=== PATIENT | female | born 1950 | race Caucasian/White ===

== ENCOUNTER → 2020-09-05 11:16 | Outpatient (CLI) | payer MEDICARE, OTHER, SELFPAY ==
--- NOTE | ~2020-09-05 | XR_ITS ---
EXAMINATION:XR cervical spine 4-5V DATE: 09/05/2020 11:41 INDICATION: Neck pain TECHNIQUE: AP, lateral, lateral swimmers and odontoid views of the cervical spine are provided. COMPARISON: None FINDINGS: Alignment is normal. The odontoid is intact. No fracture is identified. The vertebral body heights are maintained. There is mild loss of intervertebral disc space height throughout the cervica l spine. There is severe multilevel facet osteoarthritis. Prevertebral soft tissues are normal. IMPRESSION: 1. Mild cervical spondylosis without acute findings. Reviewed, dictated and finalized at location B.
--- NOTE | ~2020-09-05 | CT_ITS ---
EXAMINATION: CT brain wo con DATE: 09/05/2020 11:40 INDICATION: Head injury. TECHNIQUE: Computed tomography (CT) of the head was performed without intravenous contrast. The mA wa s adjusted according to patient size. Iterative reconstruction technique was employed. The dose-lengt h product was 599.57 mGy-cm. COMPARISON: None FINDINGS: There is no intracranial hemorrhage, acute infarction, or abnormal intracranial mass lesion . The ventricles are normal in size. The orbits are normal. There is mild mucosal thickening in the e thmoid sinuses. The mastoid air cells are normal. IMPRESSION: 1. Normal brain. Reviewed, dictated and finalized at location A. IMPRESSION: 1. Normal brain.
== END ==
PROVIDERS: PCP Internal Medicine; Visit Provider Internal Medicine
DX: S09.90XA Unspecified injury of head, initial encounter (principal); M47.812 Spondylosis without myelopathy or radiculopathy, cervical region
CPT/HCPCS: 70450; 72050

== ENCOUNTER → 2020-09-22 12:28 | Outpatient (CLI) | payer MEDICARE, OTHER, SELFPAY ==
--- NOTE | ~2020-09-22 | MR_ITS ---
EXAMINATION: MR brain IAC wo/w con EXAM DATE: 09/22/2020 13:30 INDICATION: Left ear fullness after head injury, left ear hearing loss, fall. Incident was 5 weeks ag o, persistent symptoms. TECHNIQUE: Multi-sequential, multiplanar MR images of the brain, brainstem, internal auditory canals were obtained without contrast. Whole brain sagittal T1, axial diffusion, gradient echo (T2*), T1, T 2, FLAIR sequences obtained. High resolution coronal 3-D FIESTA, coronal T1 FSE, axial T1 FSPGR of t he internal auditory canals. Patient was then injected with 15 cc Multihance contrast intravenously. Postcontrast axial and coronal T1 weighted whole brain, axial and coronal high resolution T1 IAC seq uences obtained. Correlation is made to head CT 09/05/2020. FINDINGS: No evidence of mastoid or middle ear opacification. The 7th/8th cranial nerve complexes a re symmetric, normal in course and caliber. No cerebellopontine angle masses. Posterior fossa unrem arkable. There are no areas of restricted diffusion to suggest acute infarction. There is no acute hemorrhage seen on the T2*, a hemosiderin sensitive sequence. No intraparenchymal brain mass lesion. There is mild periventricular and subcortical T2/FLAIR signal hyperintensity, nonspecific but probably related to small vessel ischemic disease (microangiopathy). There are no extra-axial collections. Flow vo ids are seen in the cerebral arteries on the T2-weighted sequences consistent with their expected pat ency. The orbits are unremarkable. Soft tissue is unremarkable. There are no areas of abnormal enh ancement on the postcontrast images. IMPRESSION: 1. Unremarkable MR brain/IAC examination. Reviewed, dictated and finalized at location B.
[2020-09-22 12:51] LABS: Estimated Glomerular Filt Rate > 60
== END ==
PROVIDERS: PCP Internal Medicine; Visit Provider Internal Medicine
DX: S09.90XA Unspecified injury of head, initial encounter (principal); H93.8X2 Other specified disorders of left ear
CPT/HCPCS: 70553; A9577

== ENCOUNTER 2020-11-14 09:30 | Outpatient (CLI) | payer MEDICARE, OTHER, SELFPAY ==
--- NOTE | ~2020-11-14 | MR_ITS ---
EXAMINATION: MR shoulder RT wo con DATE: 11/14/2020 10:45 INDICATION: Right shoulder pain. TECHNIQUE: Magnetic resonance imaging (MRI) of the right shoulder was performed without intravenous c ontrast. Sequences included axial PD-weighted FS FSE, coronal oblique PD-weighted FS FSE and T2-weigh shanell FS FSE, and sagittal oblique T2-weighted FS FSE and T1-weighted FSE. COMPARISON: Right shoulder radiographs 11/12/2020 FINDINGS: Coracoacromial arch: The acromion undersurface is flat in morphology (type I). There is severe acromioclavicular joint ost eoarthritis including inferiorly directed osteophytes. There is moderate subacromial/subdeltoid bursi tis. Rotator cuff: There is moderate supraspinatus and infraspinatus tendinopathy. There is an interstitial tear of infr aspinatus tendon at the distal insertion measuring 6 mm anterior to posterior by 5 mm proximal to dis gabriel by 1/5 tendon thickness. Teres minor tendon is normal. There is severe subscapularis tendinopathy . There is no asymmetric fatty atrophy of the rotator cuff muscle bellies. There is degenerative cyst ic change in greater tuberosity. Biceps tendon and glenoid labrum: There is a complete tear of proximal biceps tendon. There is widespread tearing of the glenoid labrum . Fluid: There is a small glenohumeral joint effusion. Bones/cartilage: There is full-thickness cartilage loss of posterior glenoid with moderate subchondral edema-like earl ow signal intensity. There is deep partial thickness cartilage loss of superior humeral head. Osteoph ytes are noted. IMPRESSION: 1. Severe rotator cuff tendinopathy with small interstitial tear of infraspinatus tendon. 2. Severe glenohumeral joint chondrosis. 3. Complete tear of proximal biceps tendon. 4. Severe acromioclavicular joint osteoarthritis. 5. Small glenohumeral joint effusion. 6. Moderate subacromial/subdeltoid bursitis. Reviewed, dictated and finalized at location A. IMPRESSION: 1. Severe rotator cuff tendinopathy with small interstitial tear of infraspinat us tendon. 2. Severe glenohumeral joint chondrosis. 3. Complete tear of proximal biceps tendon. 4. Severe acromioclavicular joint osteoarthritis. 5. Small glenohumeral joint effusion. 6. Moderate subacromial/subdeltoid bursitis.
== END 2020-11-14 09:31 | disposition home or self-care (01) ==
PROVIDERS: PCP Internal Medicine; Visit Provider Physician Assistant Surgical
DX: M25.511 Pain in right shoulder (principal); M75.81 Other shoulder lesions, right shoulder; M94.8X1 Other specified disorders of cartilage, shoulder; S46.211A Strain of muscle, fascia and tendon of other parts of biceps, right arm, initial encounter; M19.011 Primary osteoarthritis, right shoulder; M25.411 Effusion, right shoulder; M75.51 Bursitis of right shoulder
CPT/HCPCS: 73221

== ENCOUNTER 2022-09-28 13:33 | Outpatient (CLI) | payer MEDICARE, SELFPAY ==
--- NOTE | ~2022-09-28 | CT_ITS ---
Noncontrast CT scan of the right shoulder CLINICAL HISTORY: Pain, preoperative planning TECHNIQUE: Axial noncontrast imaging of the right shoulder was performed. Sagittal oblique and nunez l oblique reformatted images were constructed. Dose reduction technique was used on this scan by util izing automated exposure control and iterative reconstruction technique. The dose-length product (DLP ) was 373.77 mGy-cm. Findings: No fracture or dislocation seen. There is advanced osteoarthritis of the glenohumeral joint , joint space narrowing and large inferomedial humeral head osteophyte. There is moderate to advanced AC joint degenerative change as well, with bony productive change about the joint. No significant sandeep int effusion clearly identified. No gross soft tissue abnormality seen about the right shoulder joint. Visualized musculature unremark able. No soft tissue mass or fluid collection seen. IMPRESSION: Advanced osteoarthritis of the glenohumeral joint, as detailed above. Moderate to advanced AC joint degenerative change. Reviewed, dictated and finalized at [facility].
== END 2022-09-28 13:34 | disposition home or self-care (01) ==
PROVIDERS: PCP Internal Medicine; Visit Provider Orthopaedic Surgery
DX: M25.511 Pain in right shoulder (principal); M19.011 Primary osteoarthritis, right shoulder
CPT/HCPCS: 73200

== ENCOUNTER 2022-11-03 17:07 | Emergency (ER) | payer MEDICARE, SELFPAY ==
--- NOTE | ~2022-11-03 | XR_ITS ---
EXAMINATION: XR knee LT 3V DATE: 11/03/2022 17:46 INDICATION: Anterior left knee pain post fall TECHNIQUE: Anteroposterior, 2 oblique and crosstable lateral views of the left knee were obtained COMPARISON: None. FINDINGS: Alignment is normal. No fracture. Small marginal osteophytes at the medial and patellofemoral compar tments with relatively preserved joint space and nonweightbearing imaging consistent with at least mi ld osteoarthritis. No left knee joint effusion/layering lipohemarthrosis. Soft tissues are unremarkab le. IMPRESSION: 1. At least mild medial and patellofemoral compartment osteoarthritis. No left knee joint effusion or acute osseous abnormality. Reviewed, dictated and finalized at location A.
--- NOTE | ~2022-11-03 | XR_ITS ---
XR nasal bones min 3V 11/03/2022 17:46 Indication: Nasal bruising with abrasion Procedure: 3 views of the nasal bones Comparison: No prior studies for comparison. Findings: There is an old healed nasal fracture. No acute nasal fracture is identified. No significan t nasal septal deviation. Surrounding orbits and paranasal sinuses are unremarkable. Mastoids are pne umatized. Impression: 1: No acute fracture. Reviewed, dictated and finalized at location A. Impression: 1: No acute fracture.
--- NOTE | 2022-11-03 17:16 | ED.FALL ---
HPI - Fall General Chief Complaint: Fall Stated Complaint: Fell and hurt face and knee Time Seen by Provider: 11/03/22 17:16 Source: patient Mode of arrival: ambulatory Limitations: no limitations History of Present Illness HPI Narrative: Zandra is a 72-year-old female patient presenting to the clinic today with complaints of a ground level fall. Reports she tripped over a gas hose at the gas station and hit her face on the concrete and injury her knee. She reports that her nose was bleeding after words and she was spitting up some blood. Is concerned that she may have a nasal fracture. Has an abrasion to the left knee with discomfort to the lateral anterior knee. States that her daughter is an RN and her son is a doctor and they recommend she be evaluated in the urgent care today. Related Data Home Medications Medication Instructions Recorded Confirmed ascorbate calcium (vitamin C) 500 500 mg PO DAILY 11/12/20 11/03/22 mg tablet calcium carbonate 600 mg-vitamin 1 cap PO DAILY 11/12/20 11/03/22 D3 12.5 mcg (500 unit) capsule (Calcium 600 with Vitamin D3) cyanocobalamin (vitamin B-12) 1,000 mcg PO DAILY 11/12/20 11/03/22 1,000 mcg capsule lisinopril 5 mg tablet 5 mg PO DAILY 11/12/20 11/03/22 metoprolol succinate 100 mg 100 mg PO DAILY 11/12/20 11/03/22 tablet,extended release 24 hr multivitamin 1 tablet PO DAILY 11/12/20 11/03/22 omega-3 fatty acids 1,000 mg 1,000 mg PO DAILY 11/12/20 11/03/22 capsule (Fish Oil Concentrate) rosuvastatin 40 mg tablet 40 mg PO DAILY 11/12/20 11/03/22 acetaminophen 650 mg 650 mg PO Q12H 04/23/22 11/03/22 tablet,extended release (Tylenol Arthritis Pain) ibuprofen 800 mg tablet 800 mg PO Q6H 04/23/22 11/03/22 loratadine 10 mg tablet (Claritin) 10 mg PO DAILY 04/23/22 11/03/22 Allergies Allergy/AdvReac Type Severity Reaction Status Date / Time No Known Allergies Allergy Verified 11/03/22 17:34 Review of Systems Review of Systems: Pertinent positives per HPI. Patient denies any fever, chills, rash, headache, visual changes, dizziness, cough, runny nose, sore throat, shortness of breath, chest pain, palpitations, nausea, vomiting, diarrhea, constipation, abdominal pain, or any urinary issues. [facility] Past Medical History Medical History History of cardiac disorder History of heart block (~2001) History of hypertension Surgical History Surgical History History of bilateral breast reduction surgery (~04/2011) History of (~1989) History of repair of left rotator cuff (~12/01/10) Family History Family History Sibling Family history of diabetes mellitus in first degree relative Cancer Breast cancer DVT (deep venous thrombosis) High cholesterol Mother Family history of heart disease in male family member before age 55 Arthritis Alzheimers disease Social History Social History Smoking status: Never smoker Alcohol intake: current Lack of Transportation: No Lack of Food: Never True Current Housing: I Have Housing Concerned About Future Housing: No Difficulty Paying Gas/Electric Bills: No Difficulty Paying for Meds: No Currently Unemployed: No Education: Bachelor's Degree Difficulty w/ Childcare or Family Care: No Comments At the time of my signature, I reviewed and agree with the nursing past medical, surgical, social, and family history. There is no relevant family history pertinent to the patient complaint. Exam Narrative: General: Well-developed, well nourished, in no apparent distress Head: Normocephalic, contusion with swelling and abrasion to mid forehead and abrasion to the nose with mild swelling Eyes: Pupils equally round and reactive to light bilaterally, EOM
[2022-11-03 17:20] VITALS: BP 130/80; PULSE 60; RESP 20; TEMP 37.1; O2SAT 97
--- NOTE | 2022-11-03 18:26 | PC.NURSE ---
PT REPORTS SHE HAD JUMPED OVER THE GAS HOSE AND FELL AFTER TRIPPING ON IT. NO NEUROLOGICAL DEFICITS ARE NOTED UPON DC. CHRIS, AMBULATES WITH STEADY GAIT, DENIES ANY AGARWAL, DIZZINESS, LIGHTHEADEDNESS, VISION CHANGES.
== END 2022-11-03 18:15 | disposition home or self-care (01) ==
LOC: EXPGOSH 17:19
PROVIDERS: Emergency Provider Nurse Practitioner Family; PCP Internal Medicine
DX: R04.0 Epistaxis (principal); S00.33XA Contusion of nose, initial encounter; S09.90XA Unspecified injury of head, initial encounter; S00.83XA Contusion of other part of head, initial encounter; S80.02XA Contusion of left knee, initial encounter; S80.212A Abrasion, left knee, initial encounter; W18.09XA Striking against other object with subsequent fall, initial encounter; I10 Essential (primary) hypertension
CPT/HCPCS: 70160; 73562; 99214; G0463

== ENCOUNTER 2022-11-05 14:40 | Outpatient (CLI) | payer MEDICARE, SELFPAY ==
--- NOTE | ~2022-11-05 | CT_ITS ---
EXAMINATION: CT brain wo con DATE: 11/05/2022 15:08 INDICATION: Fall, head injury. Left eye bruising. TECHNIQUE: Computed tomography (CT) of the head was performed without intravenous contrast. The mA wa s adjusted according to patient size. Iterative reconstruction technique was employed. Exam dose: 60 5.33 mGy-cm total exam DLP. COMPARISON: 09/22/2020 MRI brain IAC 09/05/2020 CT brain FINDINGS: Bilateral carotid siphon internal carotid artery calcifications and mild vertebrobasilar ar terial calcification. There is nonspecific diminished attenuation of the cerebral white matter, likely due to chronic small vessel ischemic changes. No intracranial mass lesion or hemorrhage or cerebrovascular accident is detected. No midline shift o r mass effect. Normal ventricular size. No subdural or epidural hematoma is detected. No fracture or bone destruction of the cranial vault. The mastoid air cells and included paranasal si nuses are normally developed and aerated. IMPRESSION: Cerebral atherosclerosis and chronic small vessel ischemic changes of the cerebral white matter No skull fracture or acute intracranial finding Reviewed, dictated and finalized at Location A. Reviewed, dictated and finalized at location B.
== END 2022-11-05 14:41 | disposition home or self-care (01) ==
PROVIDERS: PCP Internal Medicine; Visit Provider Internal Medicine
DX: S09.90XA Unspecified injury of head, initial encounter (principal); I67.2 Cerebral atherosclerosis
CPT/HCPCS: 70450

== ENCOUNTER 2022-12-08 07:58 | Outpatient (CLI) | payer MEDICARE, SELFPAY ==
[2022-12-08 09:33] LABS: Basophils Absolute Auto 0.1 K/mm3 (0.0-0.1); Basophils Percent Auto 1.6 % (0.2-1.2); Eosinophils Absolute Auto 0.2 K/mm3 (0-0.3); Eosinophils Percent Auto 3.4 % (0-4.4); Hematocrit 40.8 % (37.0-47.0); Hemoglobin 13.2 g/dL (12.0-15.0); Immature Platelet Fraction Pct 4.4 % (0.9-11.2); Lymphocytes Absolute Auto 1.74 K/mm3 (0.9-3.2); Lymphocytes Percent Auto 39.3 % (18.3-44.2); Mean Corpuscular HGB Conc 32.4 g/dl (32-36); Mean Corpuscular Hemoglobin 30.1 pg (26-34); Mean Corpuscular Volume 93.2 fl (80-100); Mean Platelet Volume 10.8 fl (7.4-10.4); Monocytes Absolute Auto 0.5 K/mm3 (0.1-0.6); Monocytes Percent Auto 10.2 % (2.6-8.5); Neutrophils Percent Auto 45.5 % (45.5-73.1); Platelet Count Result 135 k/mm3 (150-375); Red Blood Count 4.38 M/mm3 (4.2-5.4); Red Cell Distribution Width 13.1 % (11.5-14.5); White Blood Count 4.4 K/mm3 (4.5-10.0)
== END 2022-12-08 07:59 | disposition home or self-care (01) ==
LOC: ANHSURGERY 08:04
PROVIDERS: PCP Internal Medicine; Visit Provider Orthopaedic Surgery
DX: Z01.812 Encounter for preprocedural laboratory examination (principal); M19.011 Primary osteoarthritis, right shoulder
CPT/HCPCS: 36415; 85025; 85055; 87081

== ENCOUNTER 2023-01-04 02:17 | Day surgery (SDC) | payer MEDICARE, SELFPAY ==
--- NOTE | 2022-12-08 07:37 | PC.NURSE ---
PRE-OP INSTRUCTIONS, PLEASE READ CAREFULLY Report to the Outpatient Waiting Room, entrance under the green pavilion located off [facility], at time _0600_ on date _01/04/23_. Planned Procedure Time: _0730_. PACK A SMALL OVERNIGHT BAG AND LEAVE IN THE CAR Time changes happen often and if your time is changed the preop area will call you the afternoon before. - You and your visitor will be asked to self-screen and do not enter if you have any COVID symptoms. - A mask is optional within the hospital at this time. -VISITING HOURS 8AM-8PM Patients may have clear liquids (water, carbonated beverages, clear teas, apple juice) until 3 hours prior to surgery (0430 AM) with a maximum of 20 ounces. - No food from midnight until time of surgery Take the following medications with a SIP of water the morning of surgery: _METOPROLOL, EYE DROPS - TYLENOL IF NEEDED_ DO NOT STOP ANY OF YOUR OTHER PRESCRIPTION MEDICATIONS PRIOR TO SURGERY ?EXCEPT THE FOLLOWING Medications to discontinue per DR. AIKEN - _ASPIRIN, IBUPROFEN 7 DAYS PRIOR TO SURGERY, Date to take last dose 12/27/22_ Medications to discontinue per ANESTHESIA - _MULTIVITAMIN, FISH OIL 3 DAYS PRIOR TO SURGERY, Date to take last dose 12/31/22_ Please no make-up, nail martiniquais, hairspray, perfume, deodorant, or body powder the day of surgery. No jewelry (including any body piercings) or valuables the day of surgery, leave them at home. Please take a shower or bath the night before, or the morning of, surgery with an antibacterial soap. Wear comfortable, loose fitting clothing. - Jewelry must be removed prior to entering the operating room. Rings and piercings that are not removed may be cut off. - The hospital will not accept responsibility for valuables. - Please leave all valuables, including medications, at home the day of surgery. If you are going home after surgery, a licensed lift driver must drive you home. - NO public transportation without another adult if you receive anesthesia. - We recommend that an adult stay with you for 24 hours following discharge. - We also recommend that you do not drive, make important decision, drink alcoholic beverages, or take any drugs that were not prescribed by your health care provider for at least 24 hours after your discharge time. Follow any additional instructions given to you from your surgeon. If you or anyone in your household have experienced Covid symptoms in the past week, please notify your surgeon or the nurse liaison at the phone number below for possible testing. Instructions given to _PATIENT_and asked if any additional questions and then verbalized understanding. Patient advised to call surgeon office or pre surgery nurse liaison [phone] if any additional questions.
[2022-12-08 08:23] VITALS: BP 130/68; PULSE 62; RESP 16; TEMP 36.8; O2SAT 96; BMI 28.3
[2023-01-04] VITALS (16 sets, daily range): BP systolic 85–125; BP diastolic 49–72; PULSE 49–75; RESP 12–20; TEMP 35.6–36.9; O2SAT 91–100
[2023-01-04] MEDS: ACETAMINOPHEN 500 MG TABLET 1000 MG PO ×3 (06:29→18:08)
[2023-01-04] MEDS: LACTATED RINGERS 1,000 ML 30 ML IV CONT ×2 (06:37→09:53)
--- NOTE | 2023-01-04 06:56 | WPDHPUPDATE1 ---
History and Physical Update Update Date/Time: 01/04/23 06:56 History and Physical has been reviewed, including an updated exam of the patient. There are NO changes in the patient's condition. Risks, benefits, and alternatives have been discussed and questions answered. Patient agrees to proceed with procedure.
--- NOTE | 2023-01-04 07:00 | WPDANESEPPF ---
Anes - Initial Pre Proc Eval Procedure: Operation Date: 01/04/23 07:30 Proposed Procedures p Right Reverse Total Shoulder Arthroplasty - Albaro Plasencia MD Date/Time: 01/04/23 07:00 Surgeon: Albaro Plasencia MD Pre Op Diagnosis: primary oa r shoulder Patient Data Age: 72 Gender: F Height: 1.68 m Weight: 80.6 kg Last Vital Signs Temp 36.7 C 01/04/23 06:40 Pulse 57 L 01/04/23 06:40 Resp 16 01/04/23 06:40 BP 121/70 01/04/23 06:40 Pulse Ox 99 01/04/23 06:40 O2 Del Method Room Air 01/04/23 06:40 Allergies Allergy/AdvReac Type Severity Reaction Status Date / Time No Known Allergies Allergy Verified 01/04/23 06:21 Home Medications Medication Instructions Recorded Confirmed Type ascorbate calcium (vitamin C) 500 500 mg PO DAILY 11/12/20 01/04/23 History mg tablet calcium carbonate 600 mg-vitamin 1 cap PO DAILY 11/12/20 01/04/23 History D3 12.5 mcg (500 unit) capsule (Calcium 600 with Vitamin D3) cyanocobalamin (vitamin B-12) 1,000 mcg PO DAILY 11/12/20 01/04/23 History 1,000 mcg capsule lisinopril 5 mg tablet 5 mg PO DAILY 11/12/20 01/04/23 History metoprolol succinate 100 mg 100 mg PO DAILY 11/12/20 01/04/23 History tablet,extended release 24 hr multivitamin 1 tablet PO DAILY 11/12/20 01/04/23 History omega-3 fatty acids 1,000 mg 1,000 mg PO DAILY 11/12/20 01/04/23 History capsule (Fish Oil Concentrate) rosuvastatin 40 mg tablet 40 mg PO DAILY 11/12/20 01/04/23 History acetaminophen 650 mg 650 mg PO Q12H 04/23/22 01/04/23 History tablet,extended release (Tylenol Arthritis Pain) ibuprofen 800 mg tablet 800 mg PO Q6H PRN PAIN 04/23/22 01/04/23 History loratadine 10 mg tablet (Claritin) 10 mg PO HS 04/23/22 01/04/23 History Blue-Emu Ointment See Rx Instructions .Route .COMPLEX 12/08/22 12/08/22 History Palo Eye Drups 1 drp BID 12/08/22 12/08/22 History aspirin 81 mg tablet,delayed 81 mg PO HS 12/08/22 01/04/23 History release zolpidem 5 mg tablet 5 mg HS PRN Sleep 12/08/22 01/04/23 History Patient hx anesthesia problems: none Family hx anesthesia problems: none Results Review: All pre-operative results and documents have been reviewed as part of the pre-operative evaluation. [facility] Past Medical History Medical History (Updated 01/04/23 @ 07:01 by Pollo Schneider MD) History of cardiac disorder History of heart block (~2001) History of hypertension Normal nuclear stress test 12/31/22 Surgical History Surgical History History of bilateral breast reduction surgery (~04/2011) History of (~1989) History of repair of left rotator cuff (~12/01/10) Family History Family History Sibling Family history of diabetes mellitus in first degree relative Cancer Breast cancer DVT (deep venous thrombosis) High cholesterol Mother Family history of heart disease in male family member before age 55 Arthritis Alzheimers disease Social History Social History Smoking status: Never smoker Second hand tobacco smoke exposure: No Alcohol intake: current Drinks per week: 5 Substance use: never Substance use type: does not use Lack of Transportation: No Lack of Food: Never True Current Housing: I Have Housing Concerned About Future Housing: No Difficulty Paying Gas/Electric Bills: No Difficulty Paying for Meds: No Currently Unemployed: No Education: Bachelor's Degree Difficulty w/ Childcare or Family Care: No Living arrangements: other Additional living arrangements comments: LIVES WITH SIGNIFICANT OTHER Spiritual care concerns: No Anes - Eval Final PreProcedure Day of Procedure 01/04/23 07:00 Patient weight: overweight Heart: regular rate and rhythm Lungs: clear to auscultation Airway: Mallampati scale class II Neurological:
[2023-01-04] MEDS: TRANEXAMIC ACID 1,000MG/ISO100 1,000 MG/100 ML BAG 200 MG IVPB (07:16)
[2023-01-04] MEDS: ceFAZolin 2 GM/D5W 50 ML 2 GM/50 ML BAG IVPB ×2 (07:33→14:58)
[2023-01-04] MEDS: VANCOMYCIN HCL 1,000 MG VIAL 1000 MG TOPICAL (08:48)
--- NOTE | 2023-01-04 09:31 | W.PM.PROC2 ---
Procedure Note - Detailed Date of Procedure 01/04/23 Pre-op Diagnosis Primary osteoarthritis right shoulder Post-op Diagnosis Same Procedure Performed Reverse total shoulder arthroplasty, right. Surgeon Albaro Plasencia MD Guitar Player Janie Perez PA-C Anesthesia General Indications DJD with concern for incomplete chronic rotator cuff disease. No significant contracture. Findings Good bone quality. Standard resections. 28 degree retroversion. Posterior cuff intact. Subscapularis repaired. Description of Procedure The patient was given an interscalene block in the preoperative area. Preoperative antibiotics were given. The patient was transferred to the operating room and a general anesthetic was administered. The beach chair position was used at 45 degrees. All bony prominences were padded. The head was carefully stabilized on the [facility] department head. A sterile prep and drape was performed in the usual manner with ChloraPrep. A longitudinal incision was created at the anterior shoulder just lateral to the deltopectoral interval. Hydrogen peroxide was placed on the incision and then rinsed after one minute. Careful dissection was performed to expose the interval and protect the cephalic vein. The vein was retracted medially. The upper border of the pectoralis was released. Anterior circumflex vessel branches were suture ligated. The biceps was scarred in the groove. A subscapularis tenotomy was performed. The inferior capsule was released, exposing the humeral head. Osteophytes were removed. Care was taken to stay on bone to protect the axillary nerve. The anatomic head cut was taken with the oscillating saw. The guide pin was placed, central drilling performed, and the broach trial inserted. The neck anteversion and inclination were carefully assessed. The cut protector was placed, and attention was turned to the glenoid. Retractors were placed. Releases were carried out for exposure. The subscapularis was mobilized, the inferior capsule and long head of triceps released, and the superior and middle glenohumeral ligaments released as well. Labral tissue was resected as needed. The sizing template was used to assess the baseplate position low on the glenoid. A guide pin was placed. Minimal reaming was used to accomplish a flat surface without violating the subchondral bone. Version was corrected according to preoperative templating. The boss was drilled, and the real component was impacted into position. Supplemental locking screws were placed centrally, superiorly, and inferiorly. The glenosphere was impacted into the taper. The proximal humerus was reamed for the inset component. The humeral components were trialed. The real humeral stem, tray, and insert were impacted into position. The shoulder was copiously irrigated periodically with pulsatile lavage. The shoulder was reduced and stability confirmed. 1 gram of Vancomycin powder was placed in the joint. The biceps tenodesis was incorporated with the pectoralis tendon repair. The deltopectoral space was reapproximated with number 1 Vicryl. The remaining tissue was closed with 0 Quill and 2-0 Quill running suture and steri-strips. A sterile silver occlusive dressing and shoulder immobilizer were placed. The patient was transferred to the recovery room. Physician funeral director's assistant, Janie Perez PA-C, required for surgery; including patient positioning, draping, tissue retraction, maintaining instrument position, wound closure, and dressing placement. Implants Shoulder Innovations reverse TSA size 0 stem. +0 polyethylene insert. Standard baseplate. 33 +3 mm glenosphere. Estimated Blood Loss 100 Drains No Pathology None sent Complications No immediate complications Condition Stable Disposition PACU [facility] Billing Surgery - Charge Forward: Surgery Billing
[2023-01-04] MEDS: HYDROmorphone HCL INJ (*CRX) 1 MG/ML SYR 0.25 MG IV PUSH ×7 (10:08→10:51)
--- NOTE | 2023-01-04 11:15 | ADMGEN ---
This patient, Zandra Ma, was admitted to [facility] Surg Room 313-01. Patient/family oriented to hospital policies and general routines including ID bracelet, bed and alarms, visiting hours, pain management, procedures, bathroom and other care routines, personal items, smoking policy, room service/diet, and visiting hours. Information on how to activate the Rapid Response Team has been discussed. Patient/Family are encouraged to report perceived risks to care and to ask questions if they do not understand what they are told or what they should do.
[2023-01-04] MEDS: SODIUM CHLORIDE 0.9% IV 1,000 ML 125 ML IV CONT (11:30)
[2023-01-04] MEDS: oxyCODONE HCL (*CRX) 5 MG TAB IR 10 MG PO (15:12)
[2023-01-04] MEDS: CYCLOBENZAPRINE HCL 10 MG TABLET PO (15:14)
[2023-01-04] MEDS: ASPIRIN 81 MG ENTERIC TABLET PO (18:08)
[2023-01-04] MEDS: SENNA/DOCUSATE SODIUM TABLET 2 TAB PO (18:08)
[2023-01-04] MEDS: FAMOTIDINE 20 MG TABLET PO (20:47)
[2023-01-05] MEDS: ceFAZolin 2 GM/D5W 50 ML 2 GM/50 ML BAG IVPB ×2 (00:04→06:47)
[2023-01-05 00:05] VITALS: BP 105/60; PULSE 57; RESP 12; TEMP 36.6; O2SAT 98
[2023-01-05] MEDS: ACETAMINOPHEN 500 MG TABLET 1000 MG PO ×3 (00:05→12:06)
[2023-01-05 04:00] VITALS: BP 117/55; PULSE 57; RESP 14; TEMP 36.6; O2SAT 97
[2023-01-05] MEDS: oxyCODONE HCL (*CRX) 5 MG TAB IR PO ×2 (04:41→08:41)
[2023-01-05 07:56] LABS: Anion Gap 1 mmol/L (8-16); Blood Urea Nitrogen 13 mg/dL (7-17); Calcium 8.4 mg/dL (8.4-10.2); Carbon Dioxide 28 mmol/L (22-30); Chloride 107 mmol/L (98-107); Estimated CRCL calculation 69 ml/min; Estimated Glomerular Filt Rate > 60; Glucose 128 mg/dL (65-110); Potassium 4.8 mmol/L (3.4-5.0); Sodium 136 mmol/L (137-145)
[2023-01-05 07:59] LABS: Basophils Percent Auto 0.3 % (0.2-1.2); Eosinophils Percent Auto 0.2 % (0-4.4); Hematocrit 36.9 % (37.0-47.0); Hemoglobin 11.8 g/dL (12.0-15.0); Immature Granulocyte Absolute 0.03 K/mm3 (0.00-0.031); Immature Granulocyte Percent A 0.3 % (0-0.5); Mean Corpuscular Hemoglobin 30.8 pg (26-34); Mean Corpuscular Volume 96.3 fl (80-100); Mean Platelet Volume 10.9 fl (7.4-10.4); Monocytes Absolute Auto 0.8 K/mm3 (0.1-0.6); Monocytes Percent Auto 9.1 % (2.6-8.5); Neutrophils Absolute Auto 6.5 K/mm3 (1.3-6.7); Neutrophils Percent Auto 75.1 % (45.5-73.1); Platelet Count Result 128 k/mm3 (150-375); Red Blood Count 3.83 M/mm3 (4.2-5.4); Red Cell Distribution Width 13.4 % (11.5-14.5); White Blood Count 8.7 K/mm3 (4.5-10.0)
[2023-01-05] MEDS: ROSUVASTATIN 10 MG TABLET 40 MG PO (08:34)
[2023-01-05] MEDS: FAMOTIDINE 20 MG TABLET PO (08:35)
[2023-01-05] MEDS: SENNA/DOCUSATE SODIUM TABLET 2 TAB PO (08:35)
[2023-01-05] MEDS: polyethylene glycoL 3350 17 GM POWD.PACK PO (08:35)
[2023-01-05] MEDS: ASPIRIN 81 MG ENTERIC TABLET PO (08:35)
[2023-01-05 08:47] VITALS: PULSE 53
[2023-01-05] MEDS: METOPROLOL SUCCINATE EXT REL 100 MG TABCR PO (08:47)
[2023-01-05 08:49] VITALS: BP 112/59; PULSE 55; RESP 18; TEMP 36.7; O2SAT 96
--- NOTE | 2023-01-05 10:35 | WPDANESPN ---
Anes - Prog Note Post-Op Date/Time: 01/05/23 10:35 Cardiovascular status: normal Respiratory status: normal Airway patency: baseline Mental status: baseline Post-Op hydration status: normal Vital Signs: Last Vital Signs Temp 36.7 C 01/05/23 08:49 Pulse 55 L 01/05/23 08:49 Resp 18 01/05/23 08:49 BP 112/59 L 01/05/23 08:49 Pulse Ox 96 01/05/23 08:49 O2 Del Method Room Air 01/05/23 08:00 O2 Flow Rate 10 01/04/23 10:30 Pain Score (VAS): 06/18 I/O: Intake & Output 01/04/23 01/05/23 01/05/23 23:59 07:59 15:59 Intake Total 240 550 500 Balance 240 550 500 Laboratory Tests 01/05/23 07:33 01/05/23 07:33 01/05/23 07:33 WBC 8.7 RBC 3.83 L Hgb 11.8 L Hct 36.9 L MCV 96.3 MCH 30.8 MCHC 32.0 RDW 13.4 Plt Count 128 L MPV 10.9 H Immature Gran % (Auto) 0.3 Neut % (Auto) 75.1 H Lymph % (Auto) 15.0 L [place] % (Auto) 9.1 H Eos % (Auto) 0.2 Baso % (Auto) 0.3 Lymph # (Auto) 1.30 [place] # (Auto) 0.8 H Eos # (Auto) 0.0 Baso # (Auto) 0.0 Abs Immat Gran (auto) 0.03 Absolute Neuts (auto) 6.5 Absolute Nucleated RBC 0.0 Nucleated RBC % 0.0 Sodium 136 L Potassium 4.8 Chloride 107 Carbon Dioxide 28 Anion Gap 1 L BUN 13 Creatinine 0.70 Estim Creat Clear Calc 69 Estimated GFR > 60 Glucose 128 H Calcium 8.4 Post-procedural complaints: none Patient Feedback: Patient satisfied with anesthetic care.
--- NOTE | 2023-01-05 11:01 | PM.DS ---
DS: Admitting Diagnosis Discharge Date 01/05/23 Admitting Diagnosis Glenohumeral joint arthritis. DS: Discharge Diagnosis Discharge Diagnosis (1) Status post reverse total arthroplasty of right shoulder: Code(s): Z96.611 - Presence of right artificial shoulder joint Status: Acute Plan Postop day 1: Right reverse total shoulder arthroplasty. Patient tolerated procedure well. No complications. Pain manageable with pain medication. No numbness or tingling. We had a lengthy discussion regarding postoperative wound care, limitations, expectations, and exercises. Patient shows good understanding. She has had initial physical therapy and is tolerating it well. DVT prophylaxis: 81 mg baby aspirin b.i.d. for 14 days. Pain medication: Percocet. Patient has followup appointment with Dr. Plasencia in 3 weeks. DS: Summary Hospital Course Hospital Course: Has had initial PT/OT and is tolerating it well. Status at Discharge Functional status at discharge: independent ambulation Overall status at discharge: patient is progressing back to baseline Time Spent with Patient Time attestation: Total time spent providing and/or coordinating discharge services: Exam Narrative: Normal weight Female. Resting comfortably in be. PT working with her at the time of my visit. Wearing sling. Dressing dry and intact with no drainage. Moderate swelling. Moderate ecchymosis. No erythema. No hematoma. Range of motion limited due to pain. Calf nontender. Neurologic status intact. No varicosities. Distal pulses palpable. DS: Data Data Completed and Pending Labs on day of discharge: Labs from last 24 hours 01/05/23 07:33 WBC 8.7 RBC 3.83 L Hgb 11.8 L Hct 36.9 L MCV 96.3 MCH 30.8 MCHC 32.0 RDW 13.4 Plt Count 128 L MPV 10.9 H Immature Gran % (Auto) 0.3 Neut % (Auto) 75.1 H Lymph % (Auto) 15.0 L [place] % (Auto) 9.1 H Eos % (Auto) 0.2 Baso % (Auto) 0.3 Lymph # (Auto) 1.30 [place] # (Auto) 0.8 H Eos # (Auto) 0.0 Baso # (Auto) 0.0 Abs Immat Gran (auto) 0.03 Absolute Neuts (auto) 6.5 Absolute Nucleated RBC 0.0 Nucleated RBC % 0.0 Sodium 136 L Potassium 4.8 Chloride 107 Carbon Dioxide 28 Anion Gap 1 L BUN 13 Creatinine 0.70 Estim Creat Clear Calc 69 Estimated GFR > 60 Glucose 128 H Calcium 8.4 Discharge Plan Discharge Patient Disposition: Home, Self-Care Discharge Instructions: See green instruction sheets Stand Alone Forms: General Discharge Instructions Follow-up/Referrals: Janie Perez PA [Physician Bridge Worker] - Discharge Medications: New aspirin 81 mg tablet,delayed release (DR/EC) 81 mg PO BID 14 Days Qty: 28 0RF oxycodone-acetaminophen 5-325 mg tablet 1 - 2 tablet PO Q4-6H MDD 6 PRN (Reason: pain) Qty: 30 0RF Continued rosuvastatin 40 mg tablet 40 mg PO DAILY lisinopril 5 mg tablet 5 mg PO DAILY metoprolol succinate 100 mg tablet extended release 24 hr 100 mg PO DAILY omega-3 fatty acids [Fish Oil Concentrate] 1,000 mg capsule 1,000 mg PO DAILY ascorbate calcium (vitamin C) 500 mg tablet 500 mg PO DAILY calcium carbonate-vitamin D3 [Calcium 600 with Vitamin D3] 600 mg(1,500mg) -500 unit capsule 1 cap PO DAILY multivitamin Tablet 1 tablet PO DAILY cyanocobalamin (vitamin B-12) 1,000 mcg capsule 1,000 mcg PO DAILY loratadine [Claritin] 10 mg tablet 10 mg PO HS ibuprofen 800 mg tablet 800 mg PO Q6H PRN (Reason: PAIN) acetaminophen [Tylenol Arthritis Pain] 650 mg tablet extended release 650 mg PO Q12H aspirin 81 mg Tablet,Delayed Release (Dr/Ec) 81 mg PO HS zolpidem 5 mg tablet 5 mg HS PRN (Reason: Sleep) [facility] 1 drp EACH EYE BID Rx Instructions: EACH EYE
== END 2023-01-05 12:40 | disposition home or self-care (01) ==
LOC: ANHSURGERY 10:02 → ANH3MEDSUR 11:09
PROVIDERS: Physician Assistant Surgical; PCP Internal Medicine; Visit Provider Orthopaedic Surgery
PROC: (CPT 23472; principal; 2023-01-04 07:30)
DX: M19.011 Primary osteoarthritis, right shoulder (principal); I10 Essential (primary) hypertension; Z79.82 Long term (current) use of aspirin
CPT/HCPCS: 23472; 36415; 80048; 85025; 86850; 86900; 86901; 97110; 97161; 97165; 97530; 97535; A4565; A9270; C1776; J0171; J0690; J1100; J1170; J1885; J2250; J2270; J2371; J2405; J2704; J2795; J3010; J3370; J7030; J7120

== ENCOUNTER 2023-04-29 10:37 | Outpatient (CLI) | payer MEDICARE, SELFPAY ==
--- NOTE | ~2023-04-29 | XR_ITS ---
XR shoulder RT min 2V DATE: 04/29/2023 11:07 INDICATION: Right artificial shoulder joint TECHNIQUE: 4 views COMPARISON: 02/23/2023 right shoulder FINDINGS: Again noted is reverse glcq-qkm-[id number] right glenohumeral joint arthroplasty. No fracture, dislocation, periosteal reaction or bone destruction is detected. There is moderate degenerative change at the right acromioclavicular joint. Diffuse idiopathic skeletal hyperostosis of the thoracic spine. IMPRESSION: Right glenohumeral arthroplasty Degenerative change of the right acromioclavicular joint No significant change since 02/23/2023 Reviewed, dictated and finalized at location B. BREEDER
== END 2023-04-29 10:38 | disposition home or self-care (01) ==
PROVIDERS: PCP Internal Medicine; Visit Provider Physician Assistant Surgical
DX: Z96.611 Presence of right artificial shoulder joint (principal)
CPT/HCPCS: 73030

== ENCOUNTER 2023-10-07 11:10 | Outpatient (CLI) | payer MEDICARE, SELFPAY ==
--- NOTE | ~2023-10-07 | XR_ITS ---
Left Shoulder Technique: AP and scapular Y views were obtained. Clinical History: Pain COMPARISON: 09/11/2014 Findings: No fracture or dislocation is seen. Moderate degenerative change of the glenohumeral joint present. Mild AC joint degenerative change present. Suture anchor present at the humeral head. Soft t issues are unremarkable. Impression: No acute abnormality. Degenerative changes, as detailed above. Reviewed, dictated and finalized at location . Impression: No acute abnormality. Degenerative changes, as detailed above.
== END 2023-10-07 11:11 | disposition home or self-care (01) ==
PROVIDERS: PCP Internal Medicine; Visit Provider Internal Medicine
DX: M25.512 Pain in left shoulder (principal)
CPT/HCPCS: 73030

== ENCOUNTER 2023-10-25 06:39 | Outpatient (CLI) | payer MEDICARE, SELFPAY ==
--- NOTE | ~2023-10-25 | MR_ITS ---
MRI of the left shoulder Technique: Axial proton-density fat-sat images, coronal proton density fat-sat and T2 fat-sat images, and sagittal T1-weighted and T2 fat-sat images were acquired. Clinical History: Injury Findings: There is mild AC joint degenerative change, with bony productive change of the distal clavi dank. Coracoclavicular, coracoacromial, and coracohumeral ligaments are intact. Evidence of prior rotator cuff repair surgery. Supraspinatus and infraspinatus tendons are intact, wi thout evidence of partial or full-thickness tear. There is mild tendinosis and/or postoperative signa l change. Subscapularis intact, with moderate tendinosis. Tendon of long head of the biceps is intact with probable intra-articular tendinosis. There is probable tear or postsurgical debridement of the superior labrum. There is a large inferomedial humeral head osteophyte, with extensive high-grade chondromalacia of th e glenoid. Inferior glenohumeral ligament is intact. There is a small glenohumeral joint effusion. No fluid distention of the subacromial/subdeltoid bursa. No muscle atrophy or edema. There is fluid dis tention of the bicipital groove. Impression: Prior rotator cuff repair surgery. Diffuse rotator cuff tendinosis without evidence of partial or ful l-thickness tear. Tear versus post surgical debridement of the superior labrum. Advanced glenohumeral joint osteoarthritis, as detailed above. Possible focal tenosynovitis of the biceps tendon sheath at the bicipital groove. Reviewed, dictated and finalized at [facility]. Impression: Prior rotator cuff repair surgery. Diffuse rotator cuff tendinosis without evid ence of partial or full-thickness tear. Tear versus post surgical debridement of the superior labrum. Advanced glenohumeral joint osteoarthritis, as detailed above. Possible focal tenosynovitis of the biceps tendon sheath at the bicipital groov e.
== END 2023-10-25 06:40 | disposition home or self-care (01) ==
PROVIDERS: PCP Internal Medicine; Visit Provider Internal Medicine
DX: M19.012 Primary osteoarthritis, left shoulder (principal); M75.32 Calcific tendinitis of left shoulder; Z98.890 Other specified postprocedural states
CPT/HCPCS: 73221

== ENCOUNTER 2023-12-30 12:02 | Outpatient (CLI) | payer MEDICARE, SELFPAY ==
--- NOTE | ~2023-12-30 | XR_ITS ---
XR shoulder RT min 2V Ordering provider: Albaro Plasencia MD History: . 1 YEAR FOLLOW YP FOR SHOULDER REPLACEMENT . Comparison: April 29, 2023 FINDINGS: BONES: No acute fracture or dislocation. JOINT SPACES: Right shoulder total arthroplasty. SOFT TISSUES: Normal. IMPRESSION: No acute osseous abnormality right shoulder. Right shoulder total arthroplasty. Reviewed, dictated and finalized at location A.
== END 2023-12-30 12:03 | disposition home or self-care (01) ==
LOC: ANHIMG 12:07
PROVIDERS: PCP Internal Medicine; Visit Provider Orthopaedic Surgery
DX: Z96.611 Presence of right artificial shoulder joint (principal)
CPT/HCPCS: 73030

== ENCOUNTER 2024-04-13 11:46 | Outpatient (CLI) | payer MEDICARE, SELFPAY ==
[2024-04-13 14:00] LABS: Basophils Absolute Auto 0.1 K/mm3 (0.0-0.1); Basophils Percent Auto 1.1 % (0.2-1.2); Eosinophils Absolute Auto 0.2 K/mm3 (0-0.3); Eosinophils Percent Auto 2.9 % (0-4.4); Hematocrit 41.7 % (37.0-47.0); Hemoglobin 13.7 g/dL (12.0-15.0); Immature Granulocyte Absolute 0.02 K/mm3 (0.00-0.031); Immature Granulocyte Percent A 0.3 % (0-0.5); Lymphocytes Absolute Auto 2.02 K/mm3 (0.9-3.2); Lymphocytes Percent Auto 32.8 % (18.3-44.2); Mean Corpuscular HGB Conc 32.9 g/dl (32-36); Mean Corpuscular Hemoglobin 30.5 pg (26-34); Mean Corpuscular Volume 92.9 fl (80-100); Mean Platelet Volume 10.3 fl (7.4-10.4); Monocytes Absolute Auto 0.5 K/mm3 (0.1-0.6); Monocytes Percent Auto 8.6 % (2.6-8.5); Neutrophils Absolute Auto 3.3 K/mm3 (1.3-6.7); Neutrophils Percent Auto 54.3 % (45.5-73.1); Platelet Count Result 203 k/mm3 (150-375); Red Blood Count 4.49 M/mm3 (4.2-5.4); Red Cell Distribution Width 12.5 % (11.5-14.5); White Blood Count 6.2 K/mm3 (4.5-10.0)
[2024-04-13 15:14] LABS: MRSA (PCR) NOT DETECTED (NOT DETECTE)
== END 2024-04-13 11:47 | disposition home or self-care (01) ==
LOC: ANHSURGERY 11:52
PROVIDERS: PCP Internal Medicine; Visit Provider Orthopaedic Surgery
DX: Z01.818 Encounter for other preprocedural examination (principal); M12.812 Other specific arthropathies, not elsewhere classified, left shoulder
CPT/HCPCS: 36415; 85025; 87641

== ENCOUNTER 2024-04-24 10:03 | Outpatient (CLI) | payer MEDICARE, SELFPAY ==
--- NOTE | 2024-04-24 10:12 | ECG_ITS ---
Test Date: 2024-04-24 10:23:31 Measurements Intervals [place] Rate: 67 P: 14 MT: 179 QRS: -25 QRSD: 92 T: 3 QT: 378 QTc: 402 Interpretive Statements SINUS RHYTHM LOW QRS VOLTAGE IN PRECORDIAL LEADS [QRS DEFLECTION < 1.0 mV IN CHEST LEADS] MODERATE VOLTAGE CRITERIA FOR LVH, CONSIDER NORMAL VARIANT [MEETS CRITERIA IN ONE OF: R(aVL), S(V1), R(V5), R(V5/V6)+S(V1)] POSSIBLE ANTERIOR MYOCARDIAL INFARCTION [30 ms Q WAVE IN V3/V4, OR R < 0.2 mV IN V4], PROBABLY OLD No previous ECG available for comparison Electronically Signed On 04-24-2024 15:25:24 FLIGHT TEST MECHANIC by Kavon Fitzpatrick M.D.
== END 2024-04-24 10:04 | disposition home or self-care (01) ==
PROVIDERS: PCP Internal Medicine; Visit Provider Orthopaedic Surgery
DX: R94.31 Abnormal electrocardiogram [ECG] [EKG] (principal); I10 Essential (primary) hypertension
CPT/HCPCS: 93005

== ENCOUNTER 2024-05-01 00:07 | Day surgery (SDC) | payer MEDICARE, SELFPAY ==
[2024-04-13 12:10] VITALS: BP 142/77; PULSE 61; RESP 16; TEMP 36.8; O2SAT 96; BMI 29.1
--- NOTE | 2024-04-13 12:37 | PC.NURSE ---
Report to the Outpatient Waiting Room, entrance under the green pavilion located off [facility], at time ___6:00AM____ on date ___05/01/24____. Planned Procedure Time: ___7:30AM .? Time changes happen often and if your time is changed the preop area will call you the afternoon before. - You and your visitor will be asked to self-screen and do not enter if you have any COVID symptoms. Please call surgeon if you need to reschedule. - A mask is optional within the hospital at this time. Patients may have clear liquids (water, carbonated beverages, clear teas, apple juice) until 3 hours prior to surgery(4:30AM) with a maximum of 20 ounces. - No food from midnight until time of surgery and no smoking. This includes no chewing gum, candy or mints. Take only the following medications with a SIP of water on the morning of surgery: METOPROLOL DO NOT STOP ANY OF YOUR OTHER PRESCRIPTION MEDICATIONS PRIOR TO SURGERY EXCEPT THE FOLLOWING Medications to discontinue per physician ____HOLD ALL ASPIRIN, IBUPROFEN(NSAIDS) AND VITAMINS/SUPPLEMENTS 7 DAYS PRE-OP PER DR AIKEN Date to take last dose 04/23/24 Please no make-up, nail maori, hairspray, perfume, deodorant, or body powder the day of surgery.? No jewelry (including any body piercings) or valuables the day of surgery, leave them at home.? Please take a shower or bath the night before, or the morning of, surgery with an antibacterial soap.? Wear comfortable, loose fitting clothing.? Children are encouraged to wear pajamas. - Jewelry must be removed prior to entering the operating room.? Rings and piercings that are not removed may be cut off. - The hospital will not accept responsibility for valuables.? - Please leave all valuables, including medications, at home the day of surgery. If you are going home after surgery, a licensed septic pump truck driver must drive you home.? - NO public transportation without another adult if you receive anesthesia. - We recommend that an adult stay with you for 24 hours following discharge. - We also recommend that you do not drive, make important decision, drink alcoholic beverages, or take any drugs that were not prescribed by your health care provider for at least 24 hours after your discharge time. Follow any additional instructions given to you from your surgeon. Telephone instructions given to ___PATIENT and asked if any additional questions and then verbalized understanding. Patient advised to call surgeon office or pre surgery nurse liaison [phone] if any additional questions.
[2024-05-01] VITALS (11 sets, daily range): BP systolic 128–142; BP diastolic 67–78; PULSE 61–80; RESP 12–18; TEMP 36.1–37.1; O2SAT 95–100
--- NOTE | ~2024-05-01 | XR_ITS ---
EXAMINATION: XR shoulder LT min 2V DATE: 05/01/2024 10:46 INDICATION: Total left shoulder arthroplasty. Postop. TECHNIQUE: 2 views of left shoulder were obtained. COMPARISON: Left shoulder radiograph 10/07/2023 FINDINGS: There is a reverse jofw-wii-ujoqob total left shoulder arthroplasty in near-anatomic alignm ent. No fracture. There is mild acromioclavicular joint osteoarthritis. There is gas in the soft tiss ues, consistent with recent surgery. IMPRESSION: 1. Reverse fzeg-llo-rixedy total left shoulder arthroplasty in near-anatomic alignment. Reviewed, dictated and finalized at location B. ENERGY INSPECTOR IMPRESSION: 1. Reverse uekz-gnn-vmwqhq total left shoulder arthroplasty in near-anatomic al ignment.
[2024-05-01] MEDS: ACETAMINOPHEN 500 MG TABLET 1000 MG PO (06:20)
[2024-05-01] MEDS: LACTATED RINGERS 1,000 ML 30 ML IV CONT ×2 (06:25→10:23)
[2024-05-01] MEDS: TRANEXAMIC ACID 1,000MG/ISO100 1,000 MG/100 ML BAG 200 MG IVPB (06:25)
--- NOTE | 2024-05-01 07:20 | WPDHPUPDATE1 ---
History and Physical Update Update Date/Time: 05/01/24 07:20 History and Physical has been reviewed, including an updated exam of the patient. There are NO changes in the patient's condition. Risks, benefits, and alternatives have been discussed and questions answered. Patient agrees to proceed with procedure.
--- NOTE | 2024-05-01 07:26 | WPDANESEPPF ---
Anes - Initial Pre Proc Eval Procedure: Operation Date: 05/01/24 07:30 Proposed Procedures p Left Reverse Total Shoulder Arthroplasty - Albaro Plasencia MD Date/Time: 05/01/24 07:26 Surgeon: Albaro Plasencia MD Pre Op Diagnosis: left shoulder rotator cuff arthropathy Patient Data Age: 74 Gender: F Height: 1.67 m Weight: 79.5 kg Last Vital Signs Temp 97.3 F L 05/01/24 06:04 Pulse 65 05/01/24 06:04 Resp 18 05/01/24 06:04 BP 129/69 05/01/24 06:04 Pulse Ox 100 05/01/24 06:04 O2 Del Method Room Air 05/01/24 06:04 Allergies Allergy/AdvReac Type Severity Reaction Status Date / Time No Known Allergies Allergy Verified 05/01/24 06:38 Home Medications ?Medication ?Instructions ?Recorded ?Confirmed ?Type ascorbate calcium (vitamin C) 500 500 mg PO DAILY 11/12/20 05/01/24 History mg tablet calcium 600 mg (as 1 cap PO BID 11/12/20 05/01/24 History carbonate)-vitamin D3 12.5 mcg (500 unit) capsule (Calcium with Vit D3) cyanocobalamin (vitamin B-12) 1,000 mcg PO DAILY 11/12/20 05/01/24 History 1,000 mcg capsule lisinopril 5 mg tablet 5 mg PO DAILY 11/12/20 05/01/24 History metoprolol succinate 100 mg 100 mg PO DAILY 11/12/20 05/01/24 History tablet,extended release 24 hr multivitamin 1 tablet PO DAILY 11/12/20 05/01/24 History omega-3 fatty acids 1,000 mg 1,000 mg PO BID 11/12/20 05/01/24 History capsule (Fish Oil Concentrate) rosuvastatin 40 mg tablet 40 mg PO DAILY 11/12/20 05/01/24 History acetaminophen 650 mg 650 mg PO Q12H PRN pain 04/23/22 04/13/24 History tablet,extended release (Tylenol Arthritis Pain) loratadine 10 mg tablet (Claritin) 10 mg PO HS 04/23/22 05/01/24 History aspirin 81 mg tablet,delayed 81 mg PO HS 12/08/22 05/01/24 History release zolpidem 5 mg tablet 5 mg PO HS PRN Sleep 12/08/22 05/01/24 History ezetimibe 10 mg tablet 10 mg PO DAILY 04/13/24 05/01/24 History glycerin 1 drp ophthalmic (eye) BID 04/13/24 05/01/24 History ibuprofen 200 mg capsule 400 mg PO Q6H PRN pain 04/13/24 05/01/24 History vit C,Y-Bh-jfqnua-lutein-zeaxan 60 1 cap PO DAILY 04/13/24 05/01/24 History mg-13.5 mg-15 mg-2 mg-6 mg capsule (Healthy Eyes Lutein-Zeaxanthin) Laboratory Tests 05/01/24 06:13 Blood Type A Positive Antibody Screen Pending Patient hx anesthesia problems: none Family hx anesthesia problems: none Results Review: All pre-operative results and documents have been reviewed as part of the pre-operative evaluation. [facility] Past Medical History Medical History Normal nuclear stress test 12/31/22 History of heart block (~2001) History of cardiac disorder History of hypertension Surgical History Surgical History History of reverse total replacement of right shoulder joint (~01/04/23) History of (~1989) History of bilateral breast reduction surgery (~04/2011) History of repair of left rotator cuff (~12/01/10) Family History Family History Sibling Family history of diabetes mellitus in first degree relative Cancer Breast cancer DVT (deep venous thrombosis) High cholesterol Mother Family history of heart disease in male family member before age 55 Arthritis Alzheimers disease Social History Social History Smoking status: Never smoker Second hand tobacco smoke exposure: No Alcohol intake: current Drinks per week: 5 Substance use: never Substance use type: does not use Do You Feel Safe in your Home?: Yes Lack of Transportation: No Lack of Food: Never True Current Housing: I Have Housing Concerned About Future Housing: No Difficulty Paying Gas/Electric Bills: No Difficulty Paying for Meds: No Currently Unemployed: No Education: Bachelor's Degree Difficulty w/ Childcare or Family Care: No Living arrangements: other Additional living arrangements comments: LIVES WITH SIGNIFICANT OTHER Spiritual care concerns: No Anes - Eval Final PreProcedure Day of Procedure 05/01/24 07:26 Patient weight: normal Heart: regular rate and rhythm Lungs: clear to auscultation Airway: Mallampati scale class II Neurological: alert and oriented Last oral intake: >/= 8 hours ASA classification: III Emergent: no Anesthetic plan: proceed Anesthesia type and monitoring: general ETT and standard monitoring Results Review: All pre-operative results and documents have been reviewed as part of the pre-operative evaluation. Informed Consent: The patient's anesthetic plan and its attendant risks and benefits were discussed with the patient/family/POA. Questions were solicited and answers provided to the satisfaction of the patient/family/POA.
[2024-05-01] MEDS: ceFAZolin 2 GM/D5W 50 ML 2 GM/50 ML BAG IVPB ×3 (07:30→23:23)
[2024-05-01] MEDS: SODIUM CHLORIDE 0.9% IV 37.7 ML, MORPHINE SULFATE INJ (*CRX) 2 MG, ROPivacaine HCL 1% 2... INFILTRATE (08:22)
[2024-05-01] MEDS: VANCOMYCIN HCL 1,000 MG VIAL 1000 MG TOPICAL (08:23)
--- NOTE | 2024-05-01 11:05 | P.OP_ITS ---
Procedure Note - Detailed Date of Procedure 05/01/24 Pre-op Diagnosis Left shoulder rotator cuff arthropathy Post-op Diagnosis Same Procedure Performed Reverse total shoulder arthroplasty, left Surgeon Albaro Plasencia MD Curriculum Coordinator Janie Perez PA-C Anesthesia General Indications Previous rotator repair. Progressive arthritis and pain. Large humeral osteophytes. Metallic suture anchor at the greater tuberosity removed. Findings Significant soft tissue contracture. Adhesions in the subdeltoid space. Humerus was resistant to dislocation. Posterior capsulectomy performed. Good bone quality. Minimal glenoid reaming required with the 10 mm augment placed to correct 8? of retroversion and 2? superior inclination, according to [address] scan planning. Description of Procedure The patient was given an interscalene block in the preoperative area. Preoperative antibiotics were given. The patient was transferred to the operating room and a general anesthetic was administered. The beach chair position was used at 45 degrees. All bony prominences were padded. The head was carefully [facility]. A sterile prep and drape was performed in the usual manner with ChloraPrep. A longitudinal incision was created at the anterior shoulder just lateral to the deltopectoral interval. Hydrogen peroxide was placed on the incision and then rinsed after one minute. Careful dissection was performed to expose the interval and protect the cephalic vein. The vein was retracted medially. The upper border of the pectoralis was released. Anterior circumflex vessel branches were suture ligated. The biceps was tenodesed. A subscapularis tenotomy was performed. The inferior capsule was released, exposing the humeral head. Osteophytes were removed. Care was taken to stay on bone to protect the axillary nerve. The anatomic head cut was taken with the oscillating saw. The guide pin was placed, central drilling performed, and the broach trial inserted. The neck anteversion and inclination were carefully assessed. The cut protector was placed, and attention was turned to the glenoid. Retractors were placed. Releases were carried out for exposure. The subscapularis was mobilized, the inferior capsule and long head of triceps released, and the superior and middle glenohumeral ligaments released as well. Labral tissue was resected as needed. Version and inclination were corrected according to preoperative templating. The sizing template was used to assess the baseplate position low on the glenoid, according to preoperative planning. A g uide pin was placed. Minimal reaming was used to accomplish a flat surface without violating the subchondral bone. The boss was drilled, and the real component was impacted into position. Supplemental locking screws were placed centrally, superiorly, and 2 inferiorly. The glenosphere was impacted into the taper. The proximal humerus was reamed for the inset component. The humeral components were trialed. The real humeral stem, tray, and insert were impacted into position. The shoulder was copiously irrigated periodically with pulsatile lavage. The shoulder was reduced and stability confirmed. 1 gram of Vancomycin powder was placed in the joint. The biceps tenodesis was incorporated with the pectoralis tendon repair. The remaining tissue was closed with 2-0 Vicryl, 3-0 Stratafix and 4-0 Stratafix, and steri-strips. A sterile silver occlusive dressing and shoulder immobilizer were placed. The patient was transferred to the recovery room. Physician cable splicer assistant, Janie Perez PA-C, required for surgery; including patient positioning, draping, tissue retraction, maintaining instrument position, wound closure, and dressing placement. Implants Shoulder Innovations reverse TSA size 1 stem. +0 polyethylene insert. 10 augmented baseplate. 33 + 3 mm glenosphere. Estimated Blood Loss 200 Drains No Pathology None sent Complications No immediate complications Condition Stable Disposition PACU [facility] Billing Surgery - Charge Forward: Surgery Billing
--- NOTE | 2024-05-01 11:14 | WPDANESPNB ---
Anes - Peripheral Nerve Block Date/Time: 05/01/24 11:14 I have discussed with the patient/family/POA the placement of a peripheral nerve block for post-operative pain management, including associated risks, benefits, complications, and side effects. Alternative methods of post-operative analgesia were detailed. Questions were solicited and answers provided to the satisfaction of the patient/family/POA. Time-Out: A pre-procedural Time-Out was completed immediately before starting the procedure and confirmed: Patient Identification, Site, Procedure, Patient Position and the Availability of Requisite Equipment. Clinical Indications: Acute post-operative pain management requested by the operative surgeon. Nerve Block Insertion Note Anes-nerve block: interscalene left Patient position: supine Skin prep: chlorhexidine Needle: 22 gauge, stimulating, insulated echogenic needle. Needle length: 50 mm Technique: ultrasound Injectate: bupivacaine 0.5% with epi 5 mcg/ml (30cc- no epi) Observations: tolerated well Complications: none Procedure start time:: 1050 Procedure end time:: 105
--- NOTE | 2024-05-01 11:15 | ADMGEN ---
This patient, Zandra Ma, was admitted to [facility] Surg Room 331-02. Patient/family oriented to hospital policies and general routines including ID bracelet, bed and alarms, visiting hours, pain management, procedures, bathroom and other care routines, personal items, smoking policy, room service/diet, and visiting hours. Information on how to activate the Rapid Response Team has been discussed. Patient/Family are encouraged to report perceived risks to care and to ask questions if they do not understand what they are told or what they should do.
[2024-05-01] MEDS: ASPIRIN 81 MG ENTERIC TABLET PO (16:42)
[2024-05-01] MEDS: SENNA/DOCUSATE SODIUM TABLET 2 TAB PO (16:42)
[2024-05-01] MEDS: LORATADINE 10 MG TABLET PO (21:04)
[2024-05-01] MEDS: lisinopriL 5 MG TABLET PO (21:05)
[2024-05-01] MEDS: ROSUVASTATIN 20 MG TABLET 40 MG PO (21:05)
[2024-05-01] MEDS: oxyCODONE/ACETAMINOPHEN (*CRX) 5-325 MG TABLET 1 TABLET PO (23:29)
[2024-05-02 03:22] VITALS: BP 103/58; PULSE 78; RESP 17; TEMP 36.5; O2SAT 94
[2024-05-02 06:35] LABS: Basophils Percent Auto 0.2 % (0.2-1.2); Hematocrit 36.5 % (37.0-47.0); Hemoglobin 11.8 g/dL (12.0-15.0); Immature Granulocyte Absolute 0.03 K/mm3 (0.00-0.031); Immature Granulocyte Percent A 0.3 % (0-0.5); Lymphocytes Absolute Auto 1.07 K/mm3 (0.9-3.2); Lymphocytes Percent Auto 9.8 % (18.3-44.2); Mean Corpuscular HGB Conc 32.3 g/dl (32-36); Mean Corpuscular Hemoglobin 30.2 pg (26-34); Mean Corpuscular Volume 93.4 fl (80-100); Mean Platelet Volume 10.5 fl (7.4-10.4); Monocytes Absolute Auto 0.9 K/mm3 (0.1-0.6); Monocytes Percent Auto 7.8 % (2.6-8.5); Neutrophils Percent Auto 81.9 % (45.5-73.1); Platelet Count Result 140 k/mm3 (150-375); Red Blood Count 3.91 M/mm3 (4.2-5.4); Red Cell Distribution Width 12.9 % (11.5-14.5)
[2024-05-02 06:48] LABS: Anion Gap 9 mmol/L (4-12); Blood Urea Nitrogen 18 mg/dL (7-17); Calcium 8.8 mg/dL (8.4-10.2); Carbon Dioxide 22 mmol/L (22-30); Chloride 105 mmol/L (98-107); Estimated CRCL calculation 76 ml/min; Estimated Glomerular Filt Rate > 60; Glucose 135 mg/dL (65-110); Potassium 4.4 mmol/L (3.4-5.0); Sodium 136 mmol/L (137-145)
[2024-05-02 08:58] VITALS: BP 131/78; PULSE 71; RESP 17; TEMP 36.4; O2SAT 99
--- NOTE | 2024-05-02 09:18 | P.DS_ITS ---
DS: Admitting Diagnosis Discharge Date 05/02/24 Admitting Diagnosis Shoulder arthritis. DS: Discharge Diagnosis Discharge Diagnosis (1) Status post reverse total arthroplasty of left shoulder: Code(s): Z96.612 - Presence of left artificial shoulder joint Status: Acute Assessment and Plan: Postop day 1: Left reverse total shoulder arthroplasty. Patient tolerated procedure well. No complications. Pain manageable with pain medication. No numbness or tingling. We had a lengthy discussion regarding postoperative wound care, limitations, expectations, and exercises. Patient shows good understanding. She has had initial physical therapy and is tolerating it well. Condition: Stable. DVT prophylaxis: 81 mg baby aspirin b.i.d. for 14 days. Pain medication: Percocet. Patient has followup appointment with Dr. Plasencia in 3 weeks. DS: Summary Hospital Course Hospital Course: Has had initial PT/OT and tolerating it well. No complications. Status at Discharge Functional status at discharge: independent ambulation Overall status at discharge: patient is progressing back to baseline Time Spent with Patient Time attestation: Total time spent providing and/or coordinating discharge services: Exam Narrative: Normal weight 74 y/o Female. Resting comfortably in bed. Wearing sling. Dressing dry and intact with no drainage. Mild swelling. Mild ecchymosis. No erythema. No hematoma. Range of motion limited due to pain. Calf nontender. Neurologic status intact. No varicosities. Distal pulses palpable. DS: Data Data Completed and Pending Labs on day of discharge: Labs from last 24 hours 05/02/24 06:13 WBC 11.0 H RBC 3.91 L Hgb 11.8 L Hct 36.5 L MCV 93.4 MCH 30.2 MCHC 32.3 RDW 12.9 Plt Count 140 L MPV 10.5 H Immature Gran % (Auto) 0.3 Neut % (Auto) 81.9 H Lymph % (Auto) 9.8 L [place] % (Auto) 7.8 Eos % (Auto) 0.0 Baso % (Auto) 0.2 Lymph # (Auto) 1.07 [place] # (Auto) 0.9 H Eos # (Auto) 0.0 Baso # (Auto) 0.0 Abs Immat Gran (auto) 0.03 Absolute Neuts (auto) 9.0 H Absolute Nucleated RBC 0.000 Nucleated RBC % 0.0 Sodium 136 L Potassium 4.4 Chloride 105 Carbon Dioxide 22 Anion Gap 9 BUN 18 H Creatinine 0.60 L Estim Creat Clear Calc 76 Estimated GFR > 60 Glucose 135 H Calcium 8.8 Discharge Plan Discharge Patient Disposition: Home, Self-Care Discharge Instructions: See green instruction sheets Patient Language: Malay Stand Alone Forms: General Discharge Instructions Follow-up/Referrals: Janie Perez PA [Physician [employer]] - Discharge Medications: New aspirin 81 mg tablet,delayed release (DR/EC) 81 mg PO BID 14 Days Qty: 28 0RF oxycodone-acetaminophen 5-325 mg tablet 1 - 2 tablet PO Q4-6H PRN (Reason: pain) 7 Days Qty: 30 0RF Continued rosuvastatin 40 mg tablet 40 mg PO DAILY Patient Comments: HS lisinopril 5 mg tablet 5 mg PO DAILY Patient Comments: HS metoprolol succinate 100 mg tablet extended release 24 hr 100 mg PO DAILY Patient Comments: QAM omega-3 fatty acids [Fish Oil Concentrate] 1,000 mg capsule 1,000 mg PO BID ascorbate calcium (vitamin C) 500 mg tablet 500 mg PO DAILY calcium carbonate-vitamin D3 [Calcium 600 with Vitamin D3] 600 mg(1,500mg) - 500 unit capsule 1 cap PO BID multivitamin Tablet 1 tablet PO DAILY cyanocobalamin (vitamin B-12) 1,000 mcg capsule 1,000 mcg PO DAILY loratadine [Claritin] 10 mg tablet 10 mg PO HS acetaminophen [Tylenol Arthritis Pain] 650 mg tablet extended release 650 mg PO Q12H PRN (Reason: pain) ezetimibe 10 mg tablet 10 mg PO DAILY Patient Comments: QAM Healthy Eyes Lutein-Zeaxanthin 60 mg-13.5 mg- 15 mg-2 mg-6 mg capsule 1 cap PO DAILY aspirin 81 mg Tablet,Delayed Release (Dr/Ec) 81 mg PO HS zolpidem 5 mg tablet 5 mg PO HS PRN (Reason: Sleep) glycerin Drops 1 drp ophthalmic (eye) BID ibuprofen 200 mg capsule 400 mg PO Q6H PRN (Reason: pain) Quality VTE Prophylaxis VTE prophylaxis: mechanical ordered and pharmacologic ordered
[2024-05-02] MEDS: oxyCODONE/ACETAMINOPHEN (*CRX) 10-325 MG TABLET 1 TAB PO (09:32)
[2024-05-02] MEDS: polyethylene glycoL 3350 17 GM POWD.PACK PO (09:32)
[2024-05-02] MEDS: SENNA/DOCUSATE SODIUM TABLET 2 TAB PO (09:32)
[2024-05-02] MEDS: ceFAZolin 2 GM/D5W 50 ML 2 GM/50 ML BAG IVPB (09:32)
[2024-05-02 09:33] VITALS: PULSE 85
[2024-05-02] MEDS: METOPROLOL SUCCINATE EXT REL 100 MG TABCR PO (09:33)
[2024-05-02] MEDS: EZETIMIBE 10 MG TABLET PO (09:33)
--- OUTSIDE RECORDS SUMMARY | 2024-05-03 15:06 | XMS_ITS | Clinical Summary ---
Author Organization [facility] Address [address] [place] [address] Phone Care Team Providers Care Process Consultant Name Role Phone EDI MAC, ANICETO Madrid Unavailable [phone] ROCK ALLAN MD Primary Care Provider [phone] Reason for Visit and Chief Complaint The Chief Complaint is: WWE and concerned about urine urgency Problems Includes: Problems addressed during this encounter and other active Problems All Visits Onset Date Resolved Date Provider Condition S tatus ESOPHAGEAL REFLUX 07/12/2012 ANICETO DALEY MD Active Last Documented On 3 9:35AM ; [facility] HYPERLIPIDEMIA NEC/NOS 07/12/2012 ANICETO Farmer MD Active Last Documented On 3 9:35AM ; [facility] HYPERTENSION NOS 07/12/2012 ANICETO DALEY MD A ctive Last Documented On 3 9:35AM ; [facility] Plan of Treatment - Follow-up visit 2 year or as needed - Last Documented On 07/08/2023 5:02PM ; [facility] She will let us know if she has other problems in the meantime. - Last Documented On 07/08/2023 5:02PM ; [facility] Future Appointments Date Time Location Provi harris [facility] 07/09/2025 9:00AM [facility] ANICETO DALEY MD Last Documented On 4 10:08AM ; [facility] Instructions to patient Instructions for patient : B reast Self Exam discussed Last Documented On 4 9:50AM ; [facility] Education and Decision Aids were provided during visit for: STD screening offered and de clined Last Documented On 4 9:50AM ; [facility] Bone Mineral Density Screeni ng guidelines reviewed : will rpt in 2025 (5 years apart) Last Documented On 4 9:53AM ; [facility] Patient Education: Daily bonnie cium and vitamin D Last Documented On 4 9:50AM ; [facility] Patient Education: weight be aring exercise Last Documented On 4 9:50AM ; [facility] Colonoscopy screening guidel elisa discussed Last Documented On 4 9:50AM ; [facility] Assessments Includes: Assessments from this encounter Findings - Fibrocystic disease of breast - Last Documented On 07/08/2023 5:02PM ; [facility] - NORMAL FEMALE EXAM - Last Documented On 07/08/2023 5:02PM ; [facility] - Screening Malig. Neoplasm Rectum - Last Documented On 07/08/2023 5:02PM ; [facility] Instructions Includes: Instructions from this encounter Instructions to patient Instructions for patient : B reast Self Exam discussed Last Documented On 4 9:50AM ; [facility] Education and Decision Aids were provided during visit for: STD screening offered and de clined Last Documented On 4 9:50AM ; [facility] Bone Mineral Density Screeni ng guidelines reviewed : will rpt in 2025 (5 years apart) Last Documented On 4 9:53AM ; [facility] Patient Education: Daily bonnie cium and vitamin D Last Documented On 4 9:50AM ; [facility] Patient Education: weight be aring exercise Last Documented On 4 9:50AM ; [facility] Colonoscopy screening guidel elisa discussed Last Documented On 4 9:50AM ; [facility] Medical Equipment - Implanted Devices Includes: Current Devices No Medical Equipment Recorded Medications Includes: Medications discussed during this encounter and other current Medications Discontinued / Stopped on this date on 07/12/2012 EQL Vitamin D3 25 MCG (1000 UT) OR TABS P rovider: Diagnosis: Last Documented On 4 9:24AM By GIGI XIONG ; [facility] Current Medications (continue as prescribed) Loratadine 10 MG Oral Tablet 07/08/2023 Provider: Diagnosis: Last Documented On 4 9:25AM By GIGI XIONG ; [facility] Zolpidem Tartrate 5 MG Oral Tablet 11/05/2022 Provid er: ROCK ALLAN MD Diagnosis: prn Last Documented On 4 9:25AM By GIGI XIONG ; [facility] Crestor 40 MG Oral Tablet 07/04/2020 Provider: Diagnosis: Last Documented On 1 1:01PM By GIGI XIONG ; [facility] Lisinopril 5 MG OR TABS 07/12/2012 Provider: Diagnosis: Last Documented On 3 9:37AM By ЮЛИЯ FAY MA ; [facility] TH Vitamin B12 100 MCG OR TABS 07/12/2012 Provider: Diagnosis: Last Documented On 3 9:37AM By ЮЛИЯ FAY MA ; [facility] CVS Vitamin C 250 MG OR TABS 07/12/2012 Provider: Diagnosis: Last Documented On 3 9:38AM By ЮЛИЯ FAY MA ; [facility] Adult Aspirin EC Low Strength 81 MG OR TBEC 04/06/2011 Provider: Diagnosis: Last Documented On 04/06/2011 2:54PM By MG MCNEAL LPN ; [facility] Fish Oil 1200 MG OR CAPS 04/06/2011 Provider: Diagnosis: Last Documented On 04/06/2011 2:55PM By MG MCNEAL LPN ; [facility] Daily Value Multivitamin OR TABS 04/06/2011 Provider : Diagnosis: Last Documented On 04/06/2011 2:57PM By MG MCNEAL LPN ; [facility] Calcium 600+D 600-400 MG-UNIT OR TABS 04/06/2011 Pro vider: Diagnosis: Last Documented On 04/06/2011 2:57PM By MG MCNEAL LPN ; [facility] Metoprolol Succinate ER 100 MG OR TB24 04/06/2011 Pr ovider: Diagnosis: BID Last Documented On 04/06/2011 2:53PM By MG MCNEAL LPN ; [facility] Medications Administered Includes: Administered Medications from this encounter No Administered Medications Recorded Vital Signs Includes: Vital Signs from this encounter Vital Name 07/08/2023 09:18A Blood Pressure Sitting (mmHg) 140/86 Temp-Oral (F) 98.3 Height (in) 65 Weight (lb) 179.6 Body Mass Index 29.9 Body Surface Area 1.9 Last Documented: On 07/08/2023 9:23AM ; [facility] Results Includes: Results discussed during this encounter No Results Recorded For Specified Dates History of Present Illness Includes: History of Present Illness from this encounter BHUMI BROWNE is a 73 year old female. - Medication list reviewed. Pt states she has to go a little more often because she drinks a lot of water. She is not leaking or wearing a pad. She will let us know if it becomes abnormal. 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; 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 07/25/2015 Last Documented On 4 9:14AM ; [facility] Smoking status : Never smoker 07/22/2014 Last Documented On 4 9:14AM ; [facility] Not sexually active 07/17/2013 Last Documented On 4 9:14AM ; [facility] Not using drugs 07/17/2013 Last Documented On 4 9:14AM ; [facility] Alcohol use 4 TIMES A MONTH 04/06/2011 Last Documented On 4 9:14AM ; [facility] Procedures and Surgical History Includes: Procedures from this encounter Procedures Code Diagnosis Performing Provider Service Location Service Date PAP/PELVIC/BREAST MEDICARE (POLICY CRITERIA APPLIED) G0101 Encntr for photography intern exam (general) (routine) w/o abn findings, Diffuse cystic mastopathy of right breast, Diffuse cystic mastopathy of left breast ANICETO DALEY MD [facility] 07/08/2023 Last Documented On 4 9:45AM ; [facility] FIT TEST-SCREENING FOR FECAL OCCULT BLOOD (CLIA WAIVED) 45021 Encounter for screening for malignant neoplasm of colon ANICETO DALEY MD [facility] 07/08/2023 Last Documented On 4 9:24AM ; [facility] use of tobacco assessment performed 1000F Last Documented On 4 9:17AM ; [facility] Clinical summary provided to patient Last Documented On 4 9:50AM ; [facility] cervical Pap smear 22630 Last Documented On 4 9:50AM ; [facility] history of cervical Pap smear 07/28/2016 Normal 8 8150 Last Documented On 4 9:17AM ; [facility] patient recently had a dexa scan 11/03/20 [facility] Last Documented On 4 9:17AM ; [facility] FIT Test-Fecal Occult negative 17810 Last Documented On 4 9:50AM ; [facility] Surgical History Last Updated History of tubal ligation 07/12/2012 Last Documented On 4 9:14AM ; [facility] Medical History Includes: Medical History addressed during this encounter Description Last Updated Aborta 2 elective 07/08/2023 Last Documented On 4 5:02PM ; [facility] section x 1 and then 2 vaginal deliveries () 07/08/2023 Last Documented On 4 5:02PM ; [facility] 5 07/08/2023 Last Documented On 4 5:02PM ; [facility] Sexually active 07/08/2023 Last Documented On 4 5:02PM ; [facility] Surgical / procedural histor y LEFT ROTATOR CUFF SURGERY 11/[address] Plasencia at [facility] ~BREAST REDUCTION SURGERY APR 2011-- bilateral with Dr Mitchell ~Rt joint replacement of big toe- ~Reverse shoulder, Right, from a fall 12/2022 07/08/2023 Last Documented On 4 5:02PM ; [facility] Last mammogram date: 07/05/20[facility] Last Documented On 4 5:02PM ; [facility] Result: normal 07/08/2023 Last Documented On 4 5:02PM ; [facility] Result: normal [facility] 07/08/2023 Last Documented On 4 5:02PM ; [facility] History of diaignostic fiberoptic colono scopy 11/08/[address] [facility] [address] Smith 07/08/2023 Last Documented On 4 5:02PM ; [facility] History of screening mammogram was perfo rmed 07/05/2023 [facility] 07/08/2023 Last Documented On 4 5:02PM ; [facility] PRIMARY CARE PROVIDER : is Dr Loretta Mauricio 08/12/2017 Last Documented On 4 9:14AM ; [facility] A colonoscopy was performed Dr Kwame farmer November 2014 08/12/2017 Last Documented On 4 9:14AM ; [facility] Last pap smear date 07/28/2016 08/12/2017 Last Documented On 4 9:14AM ; [facility] Patient recently had a dexa scan 08/01/2014 at [facility] with T-scores of 1.4 , 0.0, and 1.7; 07/25/2015 Last Documented On 4 9:14AM ; [facility] Herpes zoster (shingles) --- on her left face---June 2013 07/17/2013 Last Documented On 4 9:14AM ; [facility] Anxiety 07/17/2013 Last Documented On 4 9:14AM ; [facility] History of prior myocardial infarction they think it was a heart attack at age 52 07/17/2013 Last Documented On 4 9:14AM ; [facility] Para 3 07/17/2013 Last Documented On 4 9:14AM ; [facility] History of benign essential hypertension 07/12/2012 Last Documented On 4 9:14AM ; [facility] History of chronic reflux esophagitis Last Documented On 4 9:14AM ; [facility] History of hyperlipidemia 07/12/2012 Last Documented On 4 9:14AM ; [facility] Status post tubal ligation 1996 07/13/19 13 Last Documented On 4 9:14AM ; [facility] EMBX 12/23/04 04/06/2011 Last Documented On 4 9:14AM ; [facility] LMP: 04/06/2003 04/06/2011 Last Documented On 4 9:14AM ; [facility] Family History Includes: Family History addressed during this encounter Description Last Updated Fraternal history of family history unchanged A BROTHER PASSED OF LUNG CA at age 42 07/08/2023 Last Documented On 4 5:02PM ; [facility] Family history of cancer neice- pancreat ic cancer 07/08/2023 Last Documented On 4 5:02PM ; [facility] Family history of systemic hypertension PT 07/08/2023 Last Documented On 4 5:02PM ; [facility] Fraternal history of heart disease 07/07 Last Documented On 4 5:02PM ; [facility] Fraternal history of systemic hypertensi on 07/08/2023 Last Documented On 4 5:02PM ; [facility] Maternal history of heart disease 2023 Last Documented On 4 5:02PM ; [facility] Maternal history of systemic hypertensio n MGF 07/08/2023 Last Documented On 4 5:02PM ; [facility] Family history of Alzheimer disease thinks 3rd sister has it; being treated for it 07/08/2023 Last Documented On 4 5:02PM ; [facility] Sororal history of breast cancer 2nd sis ter 07/08/2023 Last Documented On 4 5:02PM ; [facility] Sororal history of Alzheimer disease older sister 06/2022 from alzheimers at 79 yo 07/08/2023 Last Documented On 4 5:02PM ; [facility] Sororal history of uterine c ancer SISTER- endometrial cancer- age 75 (hyst 08/14/2018) ~Different SISTER- endometrial cancer- age 57 and also thyroid papillary carcinoma age 60 08/14/2018 Last Documented On 4 9:14AM ; [facility] Maternal aunt's history of m alignant female breast neoplasm in a maternal aunt in her 60's ~ 08/14/2018 Last Documented On 4 9:14AM ; [facility] Paternal aunt's history of m alignant female breast neoplasm paternal aunt at 68 08/14/2018 Last Documented On 4 9:14AM ; [facility] Sororal history of malignant female breast neoplasm sister 68 is currently under treatment-chem double mastectomy and radiation (both breast)-bracca testing was negative( different sister than the two with endometrial cancer) 08/14/2018 Last Documented On 4 9:14AM ; [facility] Sororal history of diabetes mellitus sis ter 07/25/2015 Last Documented On 4 9:14AM ; [facility] Family history of diabetes mellitus sist er 07/17/2013 Last Documented On 4 9:14AM ; [facility] Family history of malignant female breast neoplasm in a maternal aunt in her 60's and a paternal aunt at 68 ~sister 68 is currently under treatment-chem double mastectomy and radiation (both breast)-bracca testing was negative 07/17/2013 Last Documented On 4 9:14AM ; [facility] Family history of hypercholesterolemia P T. AND FAMILY 04/06/2011 Last Documented On 4 9:14AM ; [facility] Heart disease PT. AND FAMILY 04/06/2011 Last Documented On 4 9:14AM ; [facility] Review of Systems Includes: Review of Systems from this encounter Gastrointestinal: No nausea, no vomiting, and no hematochezia. Genitourinary: No change in urinary frequency. No urinary loss of control and no incontinence. No dysuria, no stress incontinence, does not feel like bladder is falling out, no vaginal itching or burning, and no vaginal pain during intercourse. No vaginal dryness and no unexplained vaginal bleeding. Musculoskeletal: No arthralgias and no localized joint swelling. Neurological: Ataxia. Psychological: No anxiety. Fear of falling. No depression and no sleep disturbances. Past Medical: A fall x 3. Mental Status Includes: Mental Status from this encounter Description Anxiety Functional Status Includes: Functional Status from this encounter No Functional Status Recorded Physical Exam Includes: Physical Exam from this encounter Allergies Includes: Active Allergies Substance Type Reaction Onset Date Resolved Date Statu s SEASONAL Allergy 07/04/2020 Active Last Documented On 1 1:02PM ; [facility] Encounters Encounter Provider Location Date Check-In Time Check-Out Time Diagnosis [facility] PT ANICETO DALEY MD [facility] 07/08/19 24 9:05AM 10:08AM Breast Fibrocystic Disease,Screen ing Malig. Neoplasm Rectum,Normal Female Exam Insurance Includes: Active Insurance Policies Plan Name Member ID Group # Subscriber Relationship Effect baldomero Dates 1 - [facility]/MEDICARE ADV/[employer] [id number] FERNANDEZ BROWNE Se lf Clinical Notes Includes: Clinical Notes from this encounter * Progress note Date Encounter Last Documented by 07/08/2023 [facility] Last documented on 07/08/2023; 5:02 PM, ANICETO DALEY MD; [facility] Active Problems & Conditions - ESOPHAGEAL REFLUX - HYPERLIPIDEMIA NEC/NOS - HYPERTENSION NOS Chief Complaint The Chief Complaint is: WWE and concerned about urine urgency. History of Present Illness FERNANDEZ BROWNE is a 73 year old female. - Medication list reviewed. Pt states she has to go a little more often because she drinks a lot of water. She is not leaking or wearing a pad. She will let us know if it becomes abnormal. Current Medication - Adult Aspirin EC Low Strength 81 MG Tablet Delayed Release 0 days, 0 refills - Calcium 600+D 600-400 MG-UNIT Tablet 0 days, 0 refills - Crestor 40 MG Oral Tablet 0 days, 0 refills - [facility] Vitamin C 250 MG Tablet One tablet daily 0 days, 0 refills - Daily Value Multivitamin Tablet 0 days, 0 refills - Fish Oil 1200 MG Capsule 0 days, 0 refills - Lisinopril 5 MG Tablet One tablet twice a day 0 days, 0 refills - Loratadine 10 MG Oral Tablet 0 days, 0 refills - Metoprolol Succinate ER 100 MG Tablet Extended Release 24 Hour BID, 0 days, 0 refills - TH Vitamin B12 100 MCG Tablet One tablet daily 0 days, 0 refills - Zolpidem Tartrate 5 MG Oral Tablet prn, 30 days, 0 refills Past Medical/Surgical History Other: Primary Care Provider: is Dr Loretta Mauricio. Anxiety Reported: LMP: 04/06/2003, Last pap smear date 07/28/2016 result: normal, Last mammogram date: 07/05/2023 [facility], result: normal [facility], and status post tubal ligation 1995. Surgical / Procedural: Surgical / procedural history LEFT ROTATOR CUFF SURGERY 11/[address] Plasencia at [facility] BREAST REDUCTION SURGERY APR 2011-- bilateral with Dr Mitchell Rt joint replacement of big toe- Reverse shoulder, Right, from a fall 12/2022. Tests: A colonoscopy was performed Dr Smith November 2014 and patient recently had a dexa scan 08/01/2014 at [facility] with T-scores of 1.4 , 0.0, and 1.7; : 5, para 3, aborta 2 elective, and history of the : section x 1 and then 2 vaginal deliveries (). Sexual: Sexually active. Other: Diaignostic fiberoptic colonoscopy 11/08/[address] [facility] [address] Smith. Screening mammogram was performed 07/05/2023 [facility] Diagnoses: Prior myocardial infarction they think it was a heart attack at age 52 Benign essential hypertension. Chronic reflux esophagitis. Hyperlipidemia. Herpes zoster (shingles) --- on her left face---June 2013 EMBX 12/23/04. Surgical: - Tubal ligation Social History Social history changed 11/2013 Also retired 2013. Tobacco use: Smoking status: Never smoker. Alcohol: Alcohol use 4 TIMES A MONTH. Drug Use: Not using drugs. Habits: Exercising regularly. Marital: Marital history and now has new partner since 01/2021. Sexual: Not sexually active. Sexually active with 1 partners in the last year. 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 Allergies - SEASONAL Family History Heart disease PT. AND FAMILY Systemic hypertension PT Pure hypercholesterolemia PT. AND FAMILY Diabetes mellitus sister Alzheimer disease thinks 3rd sister has it; being treated for it Cancer neice- pancreatic cancer Malignant female breast neoplasm in a maternal aunt in her 60's and a paternal aunt at 68 sister 68 is currently under treatment-chem double mastectomy and radiation (both breast)-bracca testing was negative Maternal: Systemic hypertension MGF Heart disease Fraternal: Family history unchanged A BROTHER PASSED OF LUNG CA at age 42 Systemic hypertension Heart disease Sororal: Diabetes mellitus sister Alzheimer disease older sister 06/2022 from alzheimers at 79 yo Malignant female breast neoplasm sister 68 is currently under treatment-chem double mastectomy and radiation (both breast)-bracca testing was negative( different sister than the two with endometrial cancer) Breast cancer 2nd sister Uterine cancer SISTER- endometrial cancer- age 75 (hyst 08/14/2018) Different SISTER- endometrial cancer- age 57 and also thyroid papillary carcinoma age 60 Paternal aunt's: Malignant female breast neoplasm paternal aunt at 68 Maternal aunt's: Malignant female breast neoplasm in a maternal aunt in her 60's Review Of Systems Gastrointestinal: No nausea, no vomiting, and no hematochezia. Genitourinary: No change in urinary frequency. No urinary loss of control and no incontinence. No dysuria, no stress incontinence, does not feel like bladder is falling out, no vaginal itching or burning, and no vaginal pain during intercourse. No vaginal dryness and no unexplained vaginal bleeding. Musculoskeletal: No arthralgias and no localized joint swelling. Neurological: Ataxia. Psychological: No anxiety. Fear of falling. No depression and no sleep disturbances. Past Medical: A fall x 3. Physical Findings - Vitals taken 07/08/2023 09:18 am BP-Sitting 140/86 mmHg Temp-Oral 98.3 F Height 65 in Weight 179 lbs 9.6 oz Body Mass Index 29.9 kg/m2 Body Surface Area 1.9 m2 Standard Measurements: - Patient was not observed to be obese. General Appearance: - Well developed. - Well nourished. - In no acute distress. Neck: Thyroid: - Showed no abnormalities. Lymph Nodes: - Supraclavicular lymph nodes were not enlarged. - Axillary lymph nodes were not enlarged. Breasts: General/bilateral: - Diffuse fibrous tissue in the breast(s). - Diffuse fibrous tissue was found in both breasts. Right Breast: - Nipple was normal. - No abnormal secretion. - No mass was found. - No tenderness. Left Breast: - Nipple was normal. - No abnormal secretion. - No mass was found. - No tenderness. Lungs: - Clear to auscultation. Cardiovascular: Heart Rate And Rhythm: - Normal. Murmurs: - No murmurs were heard. Edema: - Not present. Veins: - No spider veins. - No varicose veins seen. Back: - No right costovertebral angle tenderness. - No left costovertebral angle tenderness. Abdomen: Palpation: - Abdominal non-tender. - No mass was palpated in the abdomen. Liver: - Not enlarged. Spleen: - Not enlarged. Hernia: - No hernia was discovered. Urinary System: Bladder: - Normal. - Not distended. - Not tender. - Did not have a mass. - Incontinence was not demonstrated with heavy cough. Urethra: - Normal: no lesions. Genitalia: External: - Genitalia showed no abnormalities. - Genitalia exhibited no lesion. Pelvic: - No ovarian mass. Vagina: - Normal: no lesions. - No vaginal discharge was observed. - No cystocele was observed. - No rectocele was observed. Cervix: - Showed no lesion. - Did not demonstrate pain elicited by motion. Uterus: - Mobile. - Contour was not irregular. - Not enlarged. - Not tender. Uterine Adnexae: - Uterine adnexa was not tender. Rectovaginal: - Tissue was normal. Rectal: - Exam: normal. Rectum: - Normal. - Had no mass. Surgery: - Reduction procedure of both breasts Tests Laboratory-based Chemistry: Fecal Analysis: FIT Test-Fecal Occult negative. Pathology: Cytology: Cervical Pap smear. Assessment - Fibrocystic disease of breast - NORMAL FEMALE EXAM - Screening Malig. Neoplasm Rectum Previous Tests Past Medical: Tests: Patient recently had a dexa scan 11/03/20 [facility]. Pathology: Cytology: Cervical Pap smear 07/28/2016 Normal. Therapy - Clinical summary provided to patient. Counseling/Education - Instructions for patient: Breast Self Exam discussed - Patient Education: Daily calcium and vitamin D - Patient Education: weight bearing exercise - Colonoscopy screening guidelines discussed - STD screening offered and declined - Bone Mineral Density Screening guidelines reviewed: will rpt in 2025 (5 years apart) Discussed Pt states that she had mammogram late tuesday this week. No report on chart yet. Plan StartCited - Other Follow-up return in 2 years for WWE (30 min). EndCited - Follow-up visit 2 year or as needed She will let us know if she has other problems in the meantime. Practice Management Use of tobacco assessment performed.
--- OUTSIDE RECORDS SUMMARY | 2024-05-03 15:06 | XMS_ITS | Clinical Summary ---
Author Organization [facility] Address [address] [place] [address] Phone Care Team Providers Care [employer] Worker Name Role Phone EDI MAC, ANICETO [place] Unavailable [phone] ROCK ALLAN MD Primary Care Provider [phone] Reason for Visit and Chief Complaint gynecologic annual exam - The Chief Complaint is: WWE; pt states no c/o Problems Includes: Problems addressed during this encounter and other active Problems All Visits Onset Date Resolved Date Provider Condition S tatus ESOPHAGEAL REFLUX 07/12/2012 ANICETO DALEY MD Active Last Documented On 3 9:35AM ; [facility] HYPERLIPIDEMIA NEC/NOS 07/12/2012 ANICETO Farmer MD Active Last Documented On 3 9:35AM ; [facility] HYPERTENSION NOS 07/12/2012 ANICETO DALEY MD A ctive Last Documented On 3 9:35AM ; [facility] Plan of Treatment - Follow-up visit 1 year or as needed - Last Documented On 08/12/2017 3:36PM ; [facility] She will let us know if she has other problems in the meantime. - Last Documented On 08/12/2017 3:36PM ; [facility] Future Appointments Date Time Location Provi harris WE[facility]OM[facility] - ESTABLISHED PT 07/09/2025 9:00AM [facility] ANICETO DALEY MD Last Documented On 4 10:08AM ; [facility] Instructions to patient Instructions for patient : B reast Self Exam discussed Last Documented On 8 3:20PM ; [facility] Education and Decision Aids were provided during visit for: STD screening offered and de clined Last Documented On 8 3:20PM ; [facility] Bone Mineral Density Screeni ng guidelines reviewed Last Documented On 8 3:20PM ; [facility] Patient Education: Daily bonnie cium and vitamin D Last Documented On 8 3:20PM ; [facility] Patient Education: weight be aring exercise Last Documented On 8 3:20PM ; [facility] Colonoscopy screening guidel elisa discussed Last Documented On 8 3:20PM ; [facility] Assessments Includes: Assessments from this encounter Findings - Fibrocystic disease of breast - Last Documented On 08/12/2017 3:36PM ; [facility] - NORMAL FEMALE EXAM - Last Documented On 08/12/2017 3:36PM ; [facility] - Screening Malig. Neoplasm Rectum - Last Documented On 08/12/2017 3:36PM ; [facility] Instructions Includes: Instructions from this encounter Instructions to patient Instructions for patient : B reast Self Exam discussed Last Documented On 8 3:20PM ; [facility] Education and Decision Aids were provided during visit for: STD screening offered and de clined Last Documented On 8 3:20PM ; [facility] Bone Mineral Density Screeni ng guidelines reviewed Last Documented On 8 3:20PM ; [facility] Patient Education: Daily bonnie cium and vitamin D Last Documented On 8 3:20PM ; [facility] Patient Education: weight be aring exercise Last Documented On 8 3:20PM ; [facility] Colonoscopy screening guidel elisa discussed Last Documented On 8 3:20PM ; [facility] Medical Equipment - Implanted Devices Includes: Current Devices No Medical Equipment Recorded Medications Includes: Medications discussed during this encounter and other current Medications Current Medications (continue as prescribed) Loratadine 10 MG Oral Tablet 07/08/2023 Provider: Diagnosis: Last Documented On 4 9:25AM By GIGI XIONG ; [facility] Zolpidem Tartrate 5 MG Oral Tablet 11/05/2022 Provid er: ROCK ALLAN MD Diagnosis: prn Last Documented On 4 9:25AM By GIGI XIONG ; [facility] Crestor 40 MG Oral Tablet 07/04/2020 Provider: Diagnosis: Last Documented On 1 1:01PM By GIGI XIONG ; [facility] Lisinopril 5 MG OR TABS 07/12/2012 Provider: Diagnosis: Last Documented On 3 9:37AM By ЮЛИЯ FAY MA ; [facility] TH Vitamin B12 100 MCG OR TABS 07/12/2012 Provider: Diagnosis: Last Documented On 3 9:37AM By ЮЛИЯ FAY MA ; [facility] CVS Vitamin C 250 MG OR TABS 07/12/2012 Provider: Diagnosis: Last Documented On 3 9:38AM By ЮЛИЯ FAY MA ; [facility] Adult Aspirin EC Low Strength 81 MG OR TBEC 04/06/2011 Provider: Diagnosis: Last Documented On 04/06/2011 2:54PM By MG MCNEAL LPN ; [facility] Fish Oil 1200 MG OR CAPS 04/06/2011 Provider: Diagnosis: Last Documented On 04/06/2011 2:55PM By MG MCNEAL LPN ; [facility] Daily Value Multivitamin OR TABS 04/06/2011 Provider : Diagnosis: Last Documented On 04/06/2011 2:57PM By MG MCNEAL LPN ; [facility] Calcium 600+D 600-400 MG-UNIT OR TABS 04/06/2011 Pro vider: Diagnosis: Last Documented On 04/06/2011 2:57PM By MG MCNEAL LPN ; [facility] Metoprolol Succinate ER 100 MG OR TB24 04/06/2011 Pr ovider: Diagnosis: BID Last Documented On 04/06/2011 2:53PM By MG MCNEAL LPN ; [facility] Medications Administered Includes: Administered Medications from this encounter No Administered Medications Recorded Vital Signs Includes: Vital Signs from this encounter Vital Name 08/12/2017 03:01P Blood Pressure Sitting (mmHg) 84/56 Height (in) 64.5 Weight (lb) 183.125 Body Mass Index (kg/m2) 30.9 Body Surface Area (m2) 1.9 Last Documented: On 08/12/2017 3:06PM ; [facility] Results Includes: Results discussed during this encounter No Results Recorded For Specified Dates History of Present Illness Includes: History of Present Illness from this encounter BHUMI BROWNE is a 67 year old female. - Medication list reviewed. 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 07/25/2015 Last Documented On 8 3:00PM ; [facility] Smoking status : Never smoker 07/22/2014 Last Documented On 8 3:00PM ; [facility] Not sexually active 07/17/2013 Last Documented On 8 3:00PM ; [facility] Not using drugs 07/17/2013 Last Documented On 8 3:00PM ; [facility] Alcohol use 4 TIMES A MONTH 04/06/2011 Last Documented On 8 3:00PM ; [facility] Procedures and Surgical History Includes: Procedures from this encounter Procedures Code Diagnosis Performing Provider Service L ocation Service Date Clinical summary provided to patient Last Documented On 8 3:20PM ; [facility] cervical Pap smear : not done due to age 13952 Last Documented On 8 3:35PM ; [facility] FIT Test-Fecal Occult negative 41663 Last Documented On 8 3:20PM ; [facility] Surgical History Last Updated Surgical / procedural histor y LEFT ROTATOR CUFF SURGERY 11/[address] Plasencia at [facility] ~BREAST REDUCTION SURGERY APR 2011-- bilateral with Dr Mitchell ~Rt joint replacement of big toe-07/17/2013 Last Documented On 8 3:00PM ; [facility] History of tubal ligation 07/12/2012 Last Documented On 8 3:00PM ; [facility] Medical History Includes: Medical History addressed during this encounter Description Last Updated section x1 07/08/2023 Last Documented On 8 3:00PM ; [facility] 5 07/08/2023 Last Documented On 8 3:00PM ; [facility] Not sexually active 07/08/2023 Last Documented On 8 3:00PM ; [facility] Vaginal delivery after c/section x2 06/10 Last Documented On 8 3:00PM ; [facility] Last mammogram date: 06/15/2017 [facility] 08/12 Last Documented On 8 3:36PM ; [facility] PRIMARY CARE PROVIDER : is Dr Loretta Mauricio 08/12/2017 Last Documented On 8 3:36PM ; [facility] A colonoscopy was performed Dr Kwame farmer November 2014 08/12/2017 Last Documented On 8 3:36PM ; [facility] Aborta 2 , ectopic 1 08/12/2017 Last Documented On 8 3:36PM ; [facility] Last pap smear date 07/28/2016 08/12/2017 Last Documented On 8 3:36PM ; [facility] Result: normal 08/12/2017 Last Documented On 8 3:36PM ; [facility] Patient recently had a dexa scan 08/01/2014 at [facility] with T-scores of 1.4 , 0.0, and 1.7; 07/25/2015 Last Documented On 8 3:00PM ; [facility] Herpes zoster (shingles) --- on her left face---June 2013 07/17/2013 Last Documented On 8 3:00PM ; [facility] Anxiety 07/17/2013 Last Documented On 8 3:00PM ; [facility] History of prior myocardial infarction they think it was a heart attack at age 52 07/17/2013 Last Documented On 8 3:00PM ; [facility] Para 3 07/17/2013 Last Documented On 8 3:00PM ; [facility] History of benign essential hypertension 07/12/2012 Last Documented On 8 3:00PM ; [facility] History of chronic reflux esophagitis Last Documented On 8 3:00PM ; [facility] History of hyperlipidemia 07/12/2012 Last Documented On 8 3:00PM ; [facility] Status post tubal ligation 1996 07/13/19 Last Documented On 8 3:00PM ; [facility] No recent change in medical history PT. REPORTS PASSING OUT JUNE 2010 at work, etiology never determined, though there was a question of an upper GI ulcer 04/18/2011 Last Documented On 8 3:00PM ; [facility] EMBX 12/23/04 04/06/2011 Last Documented On 8 3:00PM ; [facility] LMP: 04/06/2003 04/06/2011 Last Documented On 8 3:00PM ; [facility] Family History Includes: Family History addressed during this encounter Description Last Updated Fraternal history of family history unchanged A BROTHER PASSED OF LUNG CA 07/08/2023 Last Documented On 8 3:00PM ; [facility] Family history of hypertension PT. AND F AMILY 07/08/2023 Last Documented On 8 3:00PM ; [facility] Sororal history of diabetes mellitus sis ter 07/25/2015 Last Documented On 8 3:00PM ; [facility] Family history of malignant female breast neoplasm in a maternal aunt in her 60's and a paternal aunt at 68 ~sister 68 is currently under treatment-chem double mastectomy and radiation (both breast)-bracca testing was negative 07/17/2013 Last Documented On 8 3:00PM ; [facility] Family history of hypercholesterolemia P T. AND FAMILY 04/06/2011 Last Documented On 8 3:00PM ; [facility] Heart disease PT. AND FAMILY 04/06/2011 Last Documented On 8 3:00PM ; [facility] Review of Systems Includes: Review of Systems from this encounter Gastrointestinal: No nausea, no vomiting, and no hematochezia. Genitourinary: No change in urinary frequency and no feelings of urinary urgency. No urinary loss of control and no incontinence. No dysuria, no stress incontinence, does not feel like bladder is falling out, no vaginal itching or burning, and no vaginal pain during intercourse. No vaginal dryness and no unexplained vaginal bleeding. Musculoskeletal: No arthralgias and no localized joint swelling. Psychological: No anxiety, no depression, and no sleep disturbances. Mental Status Includes: Mental Status from this encounter Description Anxiety Functional Status Includes: Functional Status from this encounter No Functional Status Recorded Physical Exam Includes: Physical Exam from this encounter Allergies Includes: Active Allergies Substance Type Reaction Onset Date Resolved Date Statu s SEASONAL Allergy 07/04/2020 Active Last Documented On 1 1:02PM ; [facility] Encounters Encounter Provider Location Date Check-In Time Check-Out Time Diagnosis ANNUAL MICROPALEONTOLOGIST EXAM ANICETO DALEY MD [facility] 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 Neoplasm Rectum,Normal Female Exam Insurance Includes: Active Insurance Policies Plan Name Member ID Group # Subscriber Relationship Effect baldomero Dates 1 - [facility]/MEDICARE ADV/[employer] [id number] FERNANDEZ BROWNE Se lf Clinical Notes Includes: Clinical Notes from this encounter No Clinical Notes Recorded
--- OUTSIDE RECORDS SUMMARY | 2024-05-03 15:06 | XMS_ITS | Clinical Summary ---
Author Organization [facility] Address [address] [place] [address] Phone Care Team Providers Care Glove Turner And Former Automatic Name Role Phone EDI MAC, ANICETO [place] Unavailable [phone] ROCK ALLAN MD Primary Care Provider [phone] Reason for Visit and Chief Complaint gynecologic annual exam - The Chief Complaint is: WWE Problems Includes: Problems addressed during this encounter and other active Problems All Visits Onset Date Resolved Date Provider Condition S tatus ESOPHAGEAL REFLUX 07/12/2012 ANICETO DALEY MD Active Last Documented On 3 9:35AM ; [facility] HYPERLIPIDEMIA NEC/NOS 07/12/2012 ANICETO Farmer MD Active Last Documented On 3 9:35AM ; [facility] HYPERTENSION NOS 07/12/2012 ANICETO DALEY MD A ctive Last Documented On 3 9:35AM ; [facility] Plan of Treatment - Follow-up visit 2 years or as needed - Last Documented On 08/14/2018 4:16PM ; [facility] She will let us know if she has other problems in the meantime. - Last Documented On 08/14/2018 4:16PM ; [facility] Future Appointments Date Time Location Provi harris [facility] - ESTABLISHED PT 07/09/2025 9:00AM [facility] ANICETO DALEY MD Last Documented On 4 10:08AM ; [facility] Instructions to patient Instructions for patient : B reast Self Exam discussed Last Documented On 9 1:57PM ; [facility] Education and Decision Aids were provided during visit for: STD screening offered and de clined Last Documented On 9 1:57PM ; [facility] Bone Mineral Density Screeni ng guidelines reviewed Last Documented On 9 1:57PM ; [facility] Patient Education: Daily bonnie cium and vitamin D Last Documented On 9 1:57PM ; [facility] Patient Education: weight be aring exercise Last Documented On 9 1:57PM ; [facility] Colonoscopy screening guidel elisa discussed Last Documented On 9 1:57PM ; [facility] Assessments Includes: Assessments from this encounter Findings - Fibrocystic disease of breast - Last Documented On 08/14/2018 4:16PM ; [facility] - NORMAL FEMALE EXAM - Last Documented On 08/14/2018 4:16PM ; [facility] - Screening Malig. Neoplasm Rectum - Last Documented On 08/14/2018 4:16PM ; [facility] Instructions Includes: Instructions from this encounter Instructions to patient Instructions for patient : B reast Self Exam discussed Last Documented On 9 1:57PM ; [facility] Education and Decision Aids were provided during visit for: STD screening offered and de clined Last Documented On 9 1:57PM ; [facility] Bone Mineral Density Screeni ng guidelines reviewed Last Documented On 9 1:57PM ; [facility] Patient Education: Daily bonnie cium and vitamin D Last Documented On 9 1:57PM ; [facility] Patient Education: weight be aring exercise Last Documented On 9 1:57PM ; [facility] Colonoscopy screening guidel elisa discussed Last Documented On 9 1:57PM ; [facility] Medical Equipment - Implanted Devices Includes: Current Devices No Medical Equipment Recorded Medications Includes: Medications discussed during this encounter and other current Medications Current Medications (continue as prescribed) Loratadine 10 MG Oral Tablet 07/08/2023 Provider: Diagnosis: Last Documented On 4 9:25AM By GIGI XIONG ; [facility] Zolpidem Tartrate 5 MG Oral Tablet 11/05/2022 Provid er: ROCK ALLAN MD Diagnosis: prn Last Documented On 4 9:25AM By GIGI XIONG ; [facility] Crestor 40 MG Oral Tablet 07/04/2020 Provider: Diagnosis: Last Documented On 1 1:01PM By GIGI XIONG ; [facility] Lisinopril 5 MG OR TABS 07/12/2012 Provider: Diagnosis: Last Documented On 3 9:37AM By ЮЛИЯ FAY MA ; [facility] TH Vitamin B12 100 MCG OR TABS 07/12/2012 Provider: Diagnosis: Last Documented On 3 9:37AM By ЮЛИЯ FAY MA ; [facility] CVS Vitamin C 250 MG OR TABS 07/12/2012 Provider: Diagnosis: Last Documented On 3 9:38AM By ЮЛИЯ FAY MA ; [facility] Adult Aspirin EC Low Strength 81 MG OR TBEC 04/06/2011 Provider: Diagnosis: Last Documented On 04/06/2011 2:54PM By MG MCNEAL LPN ; [facility] Fish Oil 1200 MG OR CAPS 04/06/2011 Provider: Diagnosis: Last Documented On 04/06/2011 2:55PM By MG MCNEAL LPN ; [facility] Daily Value Multivitamin OR TABS 04/06/2011 Provider : Diagnosis: Last Documented On 04/06/2011 2:57PM By MG MCNEAL LPN ; [facility] Calcium 600+D 600-400 MG-UNIT OR TABS 04/06/2011 Pro vider: Diagnosis: Last Documented On 04/06/2011 2:57PM By MG MCNEAL LPN ; [facility] Metoprolol Succinate ER 100 MG OR TB24 04/06/2011 Pr ovider: Diagnosis: BID Last Documented On 04/06/2011 2:53PM By MG MCNEAL LPN ; [facility] Medications Administered Includes: Administered Medications from this encounter No Administered Medications Recorded Vital Signs Includes: Vital Signs from this encounter Vital Name 08/14/2018 03:28P Blood Pressure Sitting (mmHg) 104/76 Height (in) 65 Weight (lb) 181.375 Body Mass Index (kg/m2) 30.2 Body Surface Area (m2) 1.9 Last Documented: On 08/14/2018 3:28PM ; [facility] Results Includes: Results discussed during this encounter No Results Recorded For Specified Dates History of Present Illness Includes: History of Present Illness from this encounter BHUMI BROWNE is a 68 year old female. - Medication list reviewed. 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 07/25/2015 Last Documented On 9 1:21PM ; [facility] Smoking status : Never smoker 07/22/2014 Last Documented On 9 1:21PM ; [facility] Not sexually active 07/17/2013 Last Documented On 9 1:21PM ; [facility] Not using drugs 07/17/2013 Last Documented On 9 1:21PM ; [facility] Alcohol use 4 TIMES A MONTH 04/06/2011 Last Documented On 9 1:21PM ; [facility] Procedures and Surgical History Includes: Procedures from this encounter Procedures Code Diagnosis Performing Provider Service L ocation Service Date Clinical summary provided to patient Last Documented On 9 1:57PM ; [facility] cervical Pap smear 51429 Last Documented On 9 1:57PM ; [facility] FIT Test-Fecal Occult negative 54743 Last Documented On 9 1:57PM ; [facility] Surgical History Last Updated Surgical / procedural histor y LEFT ROTATOR CUFF SURGERY 11/[address] Plasencia at [facility] ~BREAST REDUCTION SURGERY APR 2011-- bilateral with Dr Mitchell ~Rt joint replacement of big toe-07/17/2013 Last Documented On 9 1:21PM ; [facility] History of tubal ligation 07/12/2012 Last Documented On 9 1:21PM ; [facility] Medical History Includes: Medical History addressed during this encounter Description Last Updated Aborta 2 , ectopic 1 07/08/2023 Last Documented On 9 1:21PM ; [facility] section x1 07/08/2023 Last Documented On 9 1:21PM ; [facility] 5 07/08/2023 Last Documented On 9 1:21PM ; [facility] Not sexually active 07/08/2023 Last Documented On 9 1:21PM ; [facility] Last mammogram date: 06/15/2017 [facility] 07/07 Last Documented On 9 1:21PM ; [facility] Result: normal 07/08/2023 Last Documented On 9 1:21PM ; [facility] Result: normal 07/08/2023 Last Documented On 9 1:21PM ; [facility] Vaginal delivery after c/section x2 06/10 Last Documented On 9 1:21PM ; [facility] PRIMARY CARE PROVIDER : is Dr Loretta Mauricio 08/12/2017 Last Documented On 9 1:21PM ; [facility] A colonoscopy was performed Dr Kwame farmer November 2014 08/12/2017 Last Documented On 9 1:21PM ; [facility] Last pap smear date 07/28/2016 08/12/2017 Last Documented On 9 1:21PM ; [facility] Patient recently had a dexa scan 08/01/2014 at [facility] with T-scores of 1.4 , 0.0, and 1.7; 07/25/2015 Last Documented On 9 1:21PM ; [facility] Herpes zoster (shingles) --- on her left face---June 2013 07/17/2013 Last Documented On 9 1:21PM ; [facility] Anxiety 07/17/2013 Last Documented On 9 1:21PM ; [facility] History of prior myocardial infarction they think it was a heart attack at age 52 07/17/2013 Last Documented On 9 1:21PM ; [facility] Para 3 07/17/2013 Last Documented On 9 1:21PM ; [facility] History of benign essential hypertension 07/12/2012 Last Documented On 9 1:21PM ; [facility] History of chronic reflux esophagitis Last Documented On 9 1:21PM ; [facility] History of hyperlipidemia 07/12/2012 Last Documented On 9 1:21PM ; [facility] Status post tubal ligation 199507/13/19 Last Documented On 9 1:21PM ; [facility] No recent change in medical history PT. REPORTS PASSING OUT JUNE 2010 at work, etiology never determined, though there was a question of an upper GI ulcer 04/18/2011 Last Documented On 9 1:21PM ; [facility] EMBX 12/23/04 04/06/2011 Last Documented On 9 1:21PM ; [facility] LMP: 04/06/2003 04/06/2011 Last Documented On 9 1:21PM ; [facility] Family History Includes: Family History addressed during this encounter Description Last Updated Fraternal history of family history unchanged A BROTHER PASSED OF LUNG CA 07/08/2023 Last Documented On 9 1:21PM ; [facility] Family history of hypertension PT. AND F AMILY 07/08/2023 Last Documented On 9 1:21PM ; [facility] Sororal history of uterine c ancer SISTER- endometrial cancer- age 75 (hyst 08/14/2018) ~Different SISTER- endometrial cancer- age 57 and also thyroid papillary carcinoma age 60 08/14/2018 Last Documented On 9 4:16PM ; [facility] Maternal aunt's history of m alignant female breast neoplasm in a maternal aunt in her 60's ~ 08/14/2018 Last Documented On 9 4:16PM ; [facility] Paternal aunt's history of m alignant female breast neoplasm paternal aunt at 68 08/14/2018 Last Documented On 9 4:16PM ; [facility] Sororal history of malignant female breast neoplasm sister 68 is currently under treatment-chem double mastectomy and radiation (both breast)-bracca testing was negative( different sister than the two with endometrial cancer) 08/14/2018 Last Documented On 9 4:16PM ; [facility] Sororal history of diabetes mellitus sis ter 07/25/2015 Last Documented On 9 1:21PM ; [facility] Family history of hypercholesterolemia P T. AND FAMILY 04/06/2011 Last Documented On 9 1:21PM ; [facility] Heart disease PT. 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 Neoplasm Rectum,Normal Female Exam Insurance Includes: Active Insurance Policies Plan Name Member ID Group # Subscriber Relationship Effect baldomero Dates 1 - [facility]/MEDICARE ADV/AARP [id number] FERNANDEZ E PAVAN Se lf Clinical Notes Includes: Clinical Notes from this encounter No Clinical Notes Recorded
--- OUTSIDE RECORDS SUMMARY | 2024-05-03 15:06 | XMS_ITS | Clinical Summary ---
Author Organization [facility] Address [address] [place] [address] Phone Care Team Providers Care Kettle Girl Name Role Phone EDI MAC, ANICETO Madrid Unavailable [phone] ROCK ALLAN MD Primary Care Provider [phone] Reason for Visit and Chief Complaint The Chief Complaint is: WWE and no c/o Problems Includes: Problems addressed during this encounter and other active Problems All Visits Onset Date Resolved Date Provider Condition S tatus ESOPHAGEAL REFLUX 07/12/2012 ANICETO DALEY MD Active Last Documented On 3 9:35AM ; [facility] HYPERLIPIDEMIA NEC/NOS 07/12/2012 ANICETO Farmer MD Active Last Documented On 3 9:35AM ; [facility] HYPERTENSION NOS 07/12/2012 ANICETO DALEY MD A ctive Last Documented On 3 9:35AM ; [facility] Plan of Treatment - Follow-up visit 2 years or as needed - Last Documented On 07/04/2020 1:39PM ; [facility] She will let us know if she has other problems in the meantime. - Last Documented On 07/04/2020 1:39PM ; [facility] Future Appointments Date Time Location Provi harris [facility] - ESTABLISHED PT 07/09/2025 9:00AM [facility] ANICETO DALEY MD Last Documented On 4 10:08AM ; [facility] Instructions to patient Instructions for patient : B reast Self Exam discussed Last Documented On 1 1:20PM ; [facility] Education and Decision Aids were provided during visit for: STD screening offered and de clined Last Documented On 1 1:20PM ; [facility] Bone Mineral Density Screeni ng guidelines reviewed Last Documented On 1 1:20PM ; [facility] Patient Education: Daily bonnie cium and vitamin D Last Documented On 1 1:20PM ; [facility] Patient Education: weight be aring exercise Last Documented On 1 1:20PM ; [facility] Colonoscopy screening guidel elisa discussed Last Documented On 1 1:20PM ; [facility] Assessments Includes: Assessments from this encounter Findings - Fibrocystic disease of breast - Last Documented On 07/04/2020 1:39PM ; [facility] - NORMAL FEMALE EXAM - Last Documented On 07/04/2020 1:39PM ; [facility] - Screening Malig. Neoplasm Rectum - Last Documented On 07/04/2020 1:39PM ; [facility] Instructions Includes: Instructions from this encounter Instructions to patient Instructions for patient : B reast Self Exam discussed Last Documented On 1 1:20PM ; [facility] Education and Decision Aids were provided during visit for: STD screening offered and de clined Last Documented On 1 1:20PM ; [facility] Bone Mineral Density Screeni ng guidelines reviewed Last Documented On 1 1:20PM ; [facility] Patient Education: Daily bonnie cium and vitamin D Last Documented On 1 1:20PM ; [facility] Patient Education: weight be aring exercise Last Documented On 1 1:20PM ; [facility] Colonoscopy screening guidel elisa discussed Last Documented On 1 1:20PM ; [facility] Medical Equipment - Implanted Devices Includes: Current Devices No Medical Equipment Recorded Medications Includes: Medications discussed during this encounter and other current Medications Discontinued / Stopped on this date on 04/06/2011 Crestor 20 MG OR TABS Provider: Diagnosis: Last Documented On 1 1:01PM By GIGI XIONG ; [facility] Current Medications (continue as prescribed) Loratadine 10 MG Oral Tablet 07/08/2023 Provider: Diagnosis: Last Documented On 4 9:25AM By GIGI XIONG ; [facility] Zolpidem Tartrate 5 MG Oral Tablet 11/05/2022 Provid er: ROCK ALLAN MD Diagnosis: prn Last Documented On 4 9:25AM By GIGI XIONG ; [facility] Crestor 40 MG Oral Tablet 07/04/2020 Provider: Diagnosis: Last Documented On 1 1:01PM By GIGI XIONG ; [facility] Lisinopril 5 MG OR TABS 07/12/2012 Provider: Diagnosis: Last Documented On 3 9:37AM By ЮЛИЯ FAY MA ; [facility] TH Vitamin B12 100 MCG OR TABS 07/12/2012 Provider: Diagnosis: Last Documented On 3 9:37AM By ЮЛИЯ FAY MA ; [facility] Vitamin C 250 MG OR TABS 07/12/2012 Provider: Diagnosis: Last Documented On 3 9:38AM By ЮЛИЯ FAY MA ; [facility] Adult Aspirin EC Low Strength 81 MG OR TBEC 04/06/2011 Provider: Diagnosis: Last Documented On 04/06/2011 2:54PM By MG MCNEAL LPN ; [facility] Fish Oil 1200 MG OR CAPS 04/06/2011 Provider: Diagnosis: Last Documented On 04/06/2011 2:55PM By MG MCNEAL LPN ; [facility] Daily Value Multivitamin OR TABS 04/06/2011 Provider : Diagnosis: Last Documented On 04/06/2011 2:57PM By MG MCNEAL LPN ; [facility] Calcium 600+D 600-400 MG-UNIT OR TABS 04/06/2011 Pro vider: Diagnosis: Last Documented On 04/06/2011 2:57PM By MG MCNEAL LPN ; [facility] Metoprolol Succinate ER 100 MG OR TB24 04/06/2011 Pr ovider: Diagnosis: BID Last Documented On 04/06/2011 2:53PM By MG MCNEAL LPN ; [facility] Medications Administered Includes: Administered Medications from this encounter No Administered Medications Recorded Vital Signs Includes: Vital Signs from this encounter Vital Name 07/04/2020 12:56P Blood Pressure Sitting (mmHg) 118/88 Temp-Oral (F) 97.9 Height (in) 65 Weight (lb) 168 Body Mass Index (kg/m2) 28.0 Body Surface Area (m2) 1.8 Last Documented: On 07/04/2020 1:03PM ; [facility] Results Includes: Results discussed during this encounter No Results Recorded For Specified Dates History of Present Illness Includes: History of Present Illness from this encounter BHUMI BROWNE is a 70 year old female. - Allergy list reviewed - Medication reconciliation performed Social History Description Last Updated Social history changed Divor sania 11/2013 - no new sex partners ~Also retired 201307/08/2023 Last Documented On 12:54PM ; [facility] Marital history 07/08/2023 Last Documented On 12:54PM ; [facility] Sexually active with 0 partners in the l ast year 07/08/2023 Last Documented On 12:54PM ; [facility] Exercising regularly 07/28/2016 Last Documented On 1 12:54PM ; [facility] 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; 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 07/25/2015 Last Documented On 1 12:54PM ; [facility] Smoking status : Never smoker 07/22/2014 Last Documented On 1 12:54PM ; [facility] Not sexually active 07/17/2013 Last Documented On 1 12:54PM ; [facility] Not using drugs 07/17/2013 Last Documented On 1 12:54PM ; [facility] Alcohol use 4 TIMES A MONTH 04/06/2011 Last Documented On 1 12:54PM ; [facility] Procedures and Surgical History Includes: Procedures from this encounter Procedures Code Diagnosis Performing Provider Service L ocation Service Date patient screened for future fall risk 3288F Last Documented On 1 1:05PM ; [facility] Clinical summary provided to patient Last Documented On 1 1:20PM ; [facility] cervical Pap smear 41045 Last Documented On 1 1:20PM ; [facility] history of cervical Pap smear 07/28/2016 44076 Last Documented On 1 12:55PM ; [facility] a colonoscopy was performed 11/2014 Last Documented On 1 12:55PM ; [facility] patient recently had a dexa scan 08/01/14 Last Documented On 1 12:55PM ; [facility] FIT Test-Fecal Occult negative 58381 Last Documented On 1 1:20PM ; [facility] Surgical History Last Updated Surgical history unchanged 07/22/2014 Last Documented On 1 12:54PM ; [facility] Surgical / procedural histor y LEFT ROTATOR CUFF SURGERY 11/[address] Plasencia at [facility] ~BREAST REDUCTION SURGERY APR 2011-- bilateral with Dr Mitchell ~Rt joint replacement of big toe-07/17/2013 Last Documented On 1 12:54PM ; [facility] History of tubal ligation 07/12/2012 Last Documented On 12:54PM ; [facility] Medical History Includes: Medical History addressed during this encounter Description Last Updated Aborta 2 , ectopic 1 07/08/2023 Last Documented On 1 12:54PM ; [facility] 5 07/08/2023 Last Documented On 1 12:54PM ; [facility] Not sexually active 07/08/2023 Last Documented On 1 12:54PM ; [facility] Result: normal 07/08/2023 Last Documented On 1 12:54PM ; [facility] Result: normal 07/08/2023 Last Documented On 1 12:54PM ; [facility] Last mammogram date: 05/12/2020 [facility] 07/04 Last Documented On 1 1:39PM ; [facility] section x2 07/04/2020 Last Documented On 1 1:39PM ; [facility] Vaginal delivery x1 and then 2 vaginal d eliveries 07/04/2020 Last Documented On 1 1:39PM ; [facility] History of screening mammogram was perfo rmed 05/12/2020 07/04/2020 Last Documented On 1 1:39PM ; [facility] PRIMARY CARE PROVIDER : is Dr Loretta Mauricio 08/12/2017 Last Documented On 1 12:54PM ; [facility] A colonoscopy was performed Dr Kwame farmer November 2014 08/12/2017 Last Documented On 1 12:54PM ; [facility] Last pap smear date 07/28/2016 08/12/2017 Last Documented On 1 12:54PM ; [facility] Patient recently had a dexa scan 08/01/2014 at [facility] with T-scores of 1.4 , 0.0, and 1.7; 07/25/2015 Last Documented On 1 12:54PM ; [facility] Herpes zoster (shingles) --- on her left face---June 2013 07/17/2013 Last Documented On 1 12:54PM ; [facility] Anxiety 07/17/2013 Last Documented On 1 12:54PM ; [facility] History of prior myocardial infarction they think it was a heart attack at age 52 07/17/2013 Last Documented On 1 12:54PM ; [facility] Para 3 07/17/2013 Last Documented On 1 12:54PM ; [facility] History of a DEXA of the lateral lumbar spine was performed 06/11/2011 07/17/2013 Last Documented On 1 12:54PM ; [facility] History of benign essential hypertension 07/12/2012 Last Documented On 1 12:54PM ; [facility] History of chronic reflux esophagitis Last Documented On 1 12:54PM ; [facility] History of hyperlipidemia 07/12/2012 Last Documented On 1 12:54PM ; [facility] Status post tubal ligation 199507/13/19 Last Documented On 1 12:54PM ; [facility] No recent change in medical history PT. REPORTS PASSING OUT JUNE 2010 at work, etiology never determined, though there was a question of an upper GI ulcer 04/18/2011 Last Documented On 12:54PM ; [facility] EMBX 12/23/04 04/06/2011 Last Documented On 12:54PM ; [facility] LMP: 04/06/2003 04/06/2011 Last Documented On 12:54PM ; [facility] Family History Includes: Family History addressed during this encounter Description Last Updated Fraternal history of family history unchanged A BROTHER PASSED OF LUNG CA 07/08/2023 Last Documented On 1 12:54PM ; [facility] Family history of hypertension PT. AND F AMILY 07/08/2023 Last Documented On 12:54PM ; [facility] Sororal history of uterine c ancer SISTER- endometrial cancer- age 75 (hyst 08/14/2018) ~Different SISTER- endometrial cancer- age 57 and also thyroid papillary carcinoma age 60 08/14/2018 Last Documented On 12:54PM ; [facility] Maternal aunt's history of m alignant female breast neoplasm in a maternal aunt in her 60's ~ 08/14/2018 Last Documented On 1 12:54PM ; [facility] Paternal aunt's history of m alignant female breast neoplasm paternal aunt at 68 08/14/2018 Last Documented On 1 12:54PM ; [facility] Sororal history of malignant female breast neoplasm sister 68 is currently under treatment-chem double mastectomy and radiation (both breast)-bracca testing was negative( different sister than the two with endometrial cancer) 08/14/2018 Last Documented On 1 12:54PM ; [facility] Sororal history of diabetes mellitus sis ter 07/25/2015 Last Documented On 1 12:54PM ; [facility] Family history of hypercholesterolemia P T. AND FAMILY 04/06/2011 Last Documented On 12:54PM ; [facility] Heart disease PT. AND FAMILY 04/06/2011 Last Documented On 12:54PM ; [facility] Review of Systems Includes: Review of Systems [...] arthralgias and no localized joint swelling. Neurological: No ataxia. Psychological: No anxiety, no fear of falling, no depression, and no sleep disturbances. Past Medical: No fall in the past 6 months. Mental Status Includes: Mental Status from this encounter Description Anxiety Functional Status Includes: Functional Status from this encounter No Functional Status Recorded Physical Exam Includes: Physical Exam from this encounter Allergies Includes: Active Allergies Substance Type Reaction Onset Date Resolved Date Statu s SEASONAL Allergy 07/04/2020 Active Last Documented On 1 1:02PM ; [facility] Encounters Encounter Provider Location Date Check-In Time Check-Out Time Diagnosis WELL WOMAN - ESTABLISHED PT ANICETO DALEY MD [facility] 07/05/19 21 12:56PM 1:41PM Breast Fibrocystic Disease,Screen ing Colleen. Neoplasm Rectum,Normal Female Exam Insurance Includes: Active Insurance Policies Plan Name Member ID Group # Subscriber Relationship Effect baldomero Dates 1 - [facility]/MEDICARE ADV/AARP [id number] FERNANDEZ BROWNE Se lf Clinical Notes Includes: Clinical Notes from this encounter No Clinical Notes Recorded
--- OUTSIDE RECORDS SUMMARY | 2024-05-03 15:06 | XMS_ITS | Clinical Summary ---
Author Organization [facility] Address [address] [place] [address] Phone Care Team Providers Care Student Liaison Officer Name Role Phone EDI MAC, ANICETO Madrid Unavailable [phone] ORCK ALLAN MD Primary Care Provider [phone] Reason for Visit and Chief Complaint [Patient Encounter] Problems Includes: Problems addressed during this encounter and other active Problems All Visits Onset Date Resolved Date Provider Condition S tatus ESOPHAGEAL REFLUX 07/12/2012 ANICETO DALEY MD Active Last Documented On 3 9:35AM ; [facility] HYPERLIPIDEMIA NEC/NOS 07/12/2012 ANICETO Farmer MD Active Last Documented On 3 9:35AM ; [facility] HYPERTENSION NOS 07/12/2012 ANICETO DALEY MD A ctive Last Documented On 3 9:35AM ; [facility] Plan of Treatment Future Appointments Date Time Location Provi harris [facility]LL [facility]OMAN - ESTABLISHED PT 07/09/2025 9:00AM [facility] ANICETO DALEY MD Last Documented On 4 10:08AM ; [facility] Assessments Includes: Assessments from this encounter No Assessments Recorded Medical Equipment - Implanted Devices Includes: Current Devices No Medical Equipment Recorded Medications Includes: Medications discussed during this encounter and other current Medications Current Medications (continue as prescribed) Loratadine 10 MG Oral Tablet 07/08/2023 Provider: Diagnosis: Last Documented On 4 9:25AM By GIGI XIONG ; [facility] Zolpidem Tartrate 5 MG Oral Tablet 11/05/2022 Provid er: ROCK ALLAN MD Diagnosis: prn Last Documented On 4 9:25AM By GIGI XIONG ; [facility] Crestor 40 MG Oral Tablet 07/04/2020 Provider: Diagnosis: Last Documented On 1 1:01PM By GIGI XIONG ; [facility] Lisinopril 5 MG OR TABS 07/12/2012 Provider: Diagnosis: Last Documented On 3 9:37AM By ЮЛИЯ FAY MA ; [facility] Vitamin B12 100 MCG OR TABS 07/12/2012 Provider: Diagnosis: Last Documented On 3 9:37AM By ЮЛИЯ FAY MA ; [facility] Vitamin C 250 MG OR TABS 07/12/2012 Provider: Diagnosis: Last Documented On 3 9:38AM By ЮЛИЯ FAY MA ; [facility] Adult Aspirin EC Low Strength 81 MG OR TBEC 04/06/2011 Provider: Diagnosis: Last Documented On 04/06/2011 2:54PM By MG MCNEAL LPN ; [facility] Fish Oil 1200 MG OR CAPS 04/06/2011 Provider: Diagnosis: Last Documented On 04/06/2011 2:55PM By MG MCNEAL LPN ; [facility] Daily Value Multivitamin OR TABS 04/06/2011 Provider : Diagnosis: Last Documented On 04/06/2011 2:57PM By MG MCNEAL LPN ; [facility] Calcium 600+D 600-400 MG-UNIT OR TABS 04/06/2011 Pro vider: Diagnosis: Last Documented On 04/06/2011 2:57PM By MG MCNEAL LPN ; [facility] Metoprolol Succinate ER 100 MG OR TB24 04/06/2011 Pr ovider: Diagnosis: BID Last Documented On 04/06/2011 2:53PM By MG MCNEAL LPN ; [facility] Medications Administered Includes: Administered Medications from this encounter No Administered Medications Recorded Results Includes: Results discussed during this encounter No Results Recorded For Specified Dates History of Present Illness Includes: History of Present Illness from this encounter No History of Present Illness Recorded Social History No Social History Recorded - Smoking Status Unknown Medical History Includes: Medical History addressed during this encounter No Medical History Recorded Family History Includes: Family History addressed during this encounter No Family History Recorded Review of Systems Includes: Review of Systems from this encounter No Review of Systems Recorded Mental Status Includes: Mental Status from this encounter No Mental Status Recorded Functional Status Includes: Functional Status from this encounter No Functional Status Recorded Physical Exam Includes: Physical Exam from this encounter No Physical Exam Recorded Allergies Includes: Active Allergies Substance Type Reaction Onset Date Resolved Date Statu s SEASONAL Allergy 07/04/2020 Active Last Documented On 1:02PM ; [facility] Encounters Encounter Provider Location Date Check-In Time Check-Out Time Diagnosis [Patient Encounter] ANICETO DALEY MD 11/10/2020 5:51PM 11:59PM Insurance Includes: Active Insurance Policies Plan Name Member ID Group # Subscriber Relationship Effect baldomero Dates 1 - [facility]/MEDICARE ADV/AARP [id number] FERNANDEZ BROWNE Se lf Clinical Notes Includes: Clinical Notes from this encounter No Clinical Notes Recorded
--- OUTSIDE RECORDS SUMMARY | 2024-05-03 15:06 | XMS_ITS ---
Care Plan - [facility] Created on: May 03, 2024 FERNANDEZ BROWNE : 1950 Sex: Female Author Organization [facility] Address [address] [place] [address] Phone Care Team Providers Care Assistant Boiler Operator Name Role Phone EDI MAC, ANICETO C Unavailable [phone] ROCK ALLAN MD Primary Care Provider [phone]
--- OUTSIDE RECORDS SUMMARY | 2024-05-03 15:06 | XMS_ITS | Clinical Summary ---
Author Organization [facility] Address [address] [place] [facility], [address] [address] Phone Care Team Providers Care Smeller Name Role Phone Sheri Holden MD Primary Care Provider [phone] Medications lisinopril (PRINIVIL, ZESTRIL) 5 MG Tablet 08/22/2015 Active metoprolol Succinate (TOPROL-XL) 100 MG TABLET SR 24 HR 08/22/2015 Act baldomero CRESTOR 20 MG Tablet 09/26/2015 Active Social History Tobacco Use Types Packs/Day Years Used Date Smoking Tobacco: Never Alcohol Use Standard Drinks/Week Comments Yes 0 (1 standard drink = 0.6 oz pur e alcohol) social Comments No Sex and Gender Information Value Date Recorded Sex Assigned at Not on file Legal Sex Female 7:32 PM CDT Gender Identity Not on file Sexual Orientation Not on file Last Filed Vital Signs Vital Sign Reading Time Taken Comments Blood Pressure - - Pulse - - Temperature - - Respiratory Rate - - Oxygen Saturation - - Inhaled Oxygen Concentration - - Weight 84.6 kg (186 lb 9.6 oz) 10/20/2015 4:06 P M CDT Height 167.6 cm (5' 6 ) 10/20/2015 4:06 PM CDT Body Mass Index 30.12 10/20/2015 4:06 PM CDT Plan of Treatment Health Maintenance Due Date Last Done Comments DEXA Bone Density 1950 Hepatitis C Virus (HCV) Screening 1950 TdaP Immunization 1950 Colonoscopy 02/01/1997 Colorectal Cancer Screening 02/01/1997 Cologuard 02/01/2002 Immunochemical Fecal Occult Blood 02/01/2002 Mammogram 02/01/2002 Pneumococcal Immunization (5 0+ years) (1 of 1 - PCV) 02/01/2002 Zoster Immunization (1 of 2) 02/01/2002 Influenza Immunization (#1) 2023 SARS-COV-2 Immunization ( - 2023- season) 2023 Respiratory Syncytial Virus (RSV) Immunization (Adult) (1 - 1-dose 75+ series) 02/01/2027 Hepatitis B Immunization Aged Out No longer eligible based on patient's age to complete this topic Meningococcal Immunization (ACWY) Aged Out No longer eligible based on patient's age to complete this topic Rotavirus Immunization Aged Out No lo nger eligible based on patient's age to complete this topic Care Teams Smeller Relationship Specialty Start Date End Date Sheri Holden MD [address] [place] [address] PCP - General Internal Medicine 10/20/15
--- OUTSIDE RECORDS SUMMARY | 2024-05-03 15:06 | XMS_ITS ---
Author Organization [facility] Address [address] [place] [address] Phone Care Team Providers Care Traveling Operator Name Role Phone EDI MAC, ANICETO [place] Unavailable [phone] ROCK ALLAN MD Primary Care Provider [phone] Problems Includes: Active, inactive, and resolved Problems All Visits Onset Date Resolved Date Provider Condition S tatus ESOPHAGEAL REFLUX 07/12/2012 ANICETO DALEY MD Active Last Documented On 3 9:35AM ; [facility] HYPERLIPIDEMIA NEC/NOS 07/12/2012 ANICETO Farmer MD Active Last Documented On 3 9:35AM ; [facility] HYPERTENSION NOS 07/12/2012 ANICETO DALEY MD A ctive Last Documented On 3 9:35AM ; [facility] Plan of Treatment Findings Encounter Date She will let us know if she has other problems in the meantime WELL WOMAN - ESTABLISHED PT with ANICETO DALEY MD 07/08/2023 Last Documented On 4 5:02PM ; [facility] Ordered follow-up visit 2 ye ar or as needed WELL WOMAN - ESTABLISHED PT with ANICETO DALEY MD 07/08/2023 Last Documented On 4 5:02PM ; [facility] She will let us know if she has other problems in the meantime WELL WOMAN - ESTABLISHED PT with ANICETO DALEY MD 07/04/2020 Last Documented On 1 1:39PM ; [facility] Ordered follow-up visit 2 ye ars or as needed WELL WOMAN - ESTABLISHED PT with ANICETO DALEY MD 07/04/2020 Last Documented On 1 1:39PM ; [facility] She will let us know if she has other problems in the meantime WELL WOMAN EXAM with ANICETO DALEY MD 08/14/2018 Last Documented On 9 4:16PM ; [facility] Ordered follow-up visit 2 ye ars or as needed WELL WOMAN EXAM with ANICETO DALEY MD 08/14/2018 Last Documented On 9 4:16PM ; [facility] She will let us know if she has other problems in the meantime ANNUAL HAUL DRIVER EXAM with ANICETO DALEY MD 08/12/2017 Last Documented On 8 3:36PM ; [facility] Ordered follow-up visit 1 ye ar or as needed ANNUAL HAUL DRIVER EXAM with ANICETO DALEY MD 08/12/2017 Last Documented On 8 3:36PM ; [facility] She will let us know if she has other problems in the meantime ANNUAL HAUL DRIVER EXAM with ANICETO DALEY MD 07/28/2016 Last Documented On 7 1:19PM ; [facility] Ordered follow-up visit 1 ye ar or as needed ANNUAL HAUL DRIVER EXAM with ANICETO DALEY MD 07/28/2016 Last Documented On 7 1:19PM ; [facility] She will let us know if she has other problems in the meantime ANNUAL HAUL DRIVER EXAM with ANICETO DALEY MD 07/25/2015 Last Documented On 6 11:08AM ; [facility] Ordered follow-up visit 1 ye ar or as needed ANNUAL HAUL DRIVER EXAM with ANICETO DALEY MD 07/25/2015 Last Documented On 6 11:08AM ; [facility] She will let us know if she has other problems in the meantime ANNUAL HAUL DRIVER EXAM with ANICETO DALEY MD 07/22/2014 Last Documented On 5 2:37PM ; [facility] Ordered follow-up visit 1 ye ar or as needed ANNUAL HAUL DRIVER EXAM with ANICETO DALEY MD 07/22/2014 Last Documented On 5 2:37PM ; [facility] She will let us know if she has other problems in the meantime ANNUAL HAUL DRIVER EXAM with ANICETO DALEY MD 07/17/2013 Last Documented On 4 9:47AM ; [facility] Ordered follow-up visit 1 ye ar or as needed ANNUAL HAUL DRIVER EXAM with ANICETO DALEY MD 07/17/2013 Last Documented On 4 9:47AM ; [facility] She will let us know if she has other problems in the meantime ANNUAL HAUL DRIVER EXAM with ANICETO DALEY MD 07/12/2012 Last Documented On 3 10:01AM ; [facility] Ordered follow-up visit 1 ye ar or as needed ANNUAL HAUL DRIVER EXAM with ANICETO DALEY MD 07/12/2012 Last Documented On 3 10:01AM ; [facility] She'll have a copy of her ma m forwarded as above NEW DYE WORKER EXAM with ANICETO DALEY MD 04/06/2011 Last Documented On 2 4:58PM ; [facility] Ordered follow-up visit 1 ye ar or as needed NEW DYE WORKER EXAM with ANICETO DALEY MD 04/06/2011 Last Documented On 2 4:58PM ; [facility] Future Appointments Date Time Location Provi harris WELL WOMAN - ESTABLISHED PT 07/09/2025 9:00AM [facility] ANICETO DALEY MD Last Documented On 4 10:08AM ; [facility] Instructions to patient Instructions for patient : B reast Self Exam discussed Last Documented On 4 9:50AM ; [facility] Instructions for patient : B reast Self Exam discussed Last Documented On 1 1:20PM ; [facility] Instructions for patient : B reast Self Exam discussed Last Documented On 9 1:57PM ; [facility] Instructions for patient : B reast Self Exam discussed Last Documented On 8 3:20PM ; [facility] Instructions for patient : B reast Self Exam discussed Last Documented On 7 1:00PM ; [facility] Instructions for patient : B reast Self Exam discussed Last Documented On 6 10:49AM ; [facility] Instructions for patient : B reast Self Exam discussed Last Documented On 5 2:17PM ; [facility] Instructions for patient : B reast Self Exam discussed Last Documented On 4 9:22AM ; [facility] Instructions for patient : B reast Self Exam discussed Last Documented On 3 9:45AM ; [facility] Instructions for patient : B reast Self Exam discussed Last Documented On 2 4:45PM ; [facility] Education and Decision Aids were provided during visit for: STD screening offered and de clined Last Documented On 4 9:50AM ; [facility] Bone Mineral Density Screeni ng guidelines reviewed : will rpt in 2025 (5 years apart) Last Documented On 4 9:53AM ; [facility] Patient Education: Daily bonnie cium and vitamin D Last Documented On 4 9:50AM ; [facility] Patient Education: weight be aring exercise Last Documented On 4 9:50AM ; [facility] Colonoscopy screening guidel elisa discussed Last Documented On 4 9:50AM ; [facility] STD screening offered and de clined Last Documented On 1 1:20PM ; [facility] Bone Mineral Density Screeni ng guidelines reviewed Last Documented On 1 1:20PM ; [facility] Patient Education: Daily bonnie cium and vitamin D Last Documented On 1 1:20PM ; [facility] Patient Education: weight be aring exercise Last Documented On 1 1:20PM ; [facility] Colonoscopy screening guidel elisa discussed Last Documented On 1 1:20PM ; [facility] STD screening offered and de clined Last Documented On 9 1:57PM ; [facility] Bone Mineral Density Screeni ng guidelines reviewed Last Documented On 9 1:57PM ; [facility] Patient Education: Daily bonnie cium and vitamin D Last Documented On 9 1:57PM ; [facility] Patient Education: weight be aring exercise Last Documented On 9 1:57PM ; [facility] Colonoscopy screening guidel elisa discussed Last Documented On 9 1:57PM ; [facility] STD screening offered and de clined Last Documented On 8 3:20PM ; [facility] Bone Mineral Density Screeni ng guidelines reviewed Last Documented On 8 3:20PM ; [facility] Patient Education: Daily bonnie cium and vitamin D Last Documented On 8 3:20PM ; [facility] Patient Education: weight be aring exercise Last Documented On 8 3:20PM ; [facility] Colonoscopy screening guidel elisa discussed Last Documented On 8 3:20PM ; [facility] STD screening offered and de clined Last Documented On 7 1:00PM ; [facility] Bone Mineral Density Screeni ng guidelines reviewed Last Documented On 7 1:00PM ; [facility] Patient Education: Daily bonnie cium and vitamin D Last Documented On 7 1:00PM ; [facility] Patient Education: weight be aring exercise Last Documented On 7 1:00PM ; [facility] Colonoscopy screening guidel elisa discussed Last Documented On 7 1:00PM ; [facility] STD screening offered and de clined Last Documented On 6 10:49AM ; [facility] Bone Mineral Density Screeni ng guidelines reviewed Last Documented On 6 10:49AM ; [facility] Patient Education: Daily bonnie cium and vitamin D Last Documented On 6 10:49AM ; [facility] Patient Education: weight be aring exercise Last Documented On 6 10:49AM ; [facility] Colonoscopy screening guidel elisa discussed Last Documented On 6 10:49AM ; [facility] STD screening offered and de clined Last Documented On 5 2:17PM ; [facility] Bone Mineral Density Screeni ng guidelines reviewed Last Documented On 5 2:17PM ; [facility] Patient Education: Daily bonnie cium and vitamin D Last Documented On 5 2:17PM ; [facility] Patient Education: weight be aring exercise Last Documented On 5 2:17PM ; [facility] Colonoscopy screening guidel elisa discussed Last Documented On 5 2:17PM ; [facility] STD screening offered and de clined Last Documented On 4 9:22AM ; [facility] Bone Mineral Density Screeni ng guidelines reviewed Last Documented On 4 9:22AM ; [facility] Patient Education: Daily bonnie cium and vitamin D Last Documented On 4 9:22AM ; [facility] Patient Education: weight be aring exercise Last Documented On 4 9:22AM ; [facility] Colonoscopy screening guidel elisa discussed Last Documented On 4 9:22AM ; [facility] STD screening offered and de clined Last Documented On 3 9:45AM ; [facility] Bone Mineral Density Screeni ng guidelines reviewed Last Documented On 3 9:45AM ; [facility] Patient Education: Daily bonnie cium and vitamin D Last Documented On 3 9:45AM ; [facility] Patient Education: weight be aring exercise Last Documented On 3 9:45AM ; [facility] Colonoscopy screening guidel elisa discussed Last Documented On 3 9:45AM ; [facility] Bone Mineral Density Screeni ng guidelines reviewed Last Documented On 2 4:45PM ; [facility] Patient Education: Daily bonnie cium and vitamin D Last Documented On 2 4:45PM ; [facility] Patient Education: weight be aring exercise Last Documented On 2 4:45PM ; [facility] Colonoscopy screening guidel elisa discussed Last Documented On 2 4:45PM ; [facility] Assessments Includes: Assessments for all patient encounters Findings Encounter Date Fibrocystic disease of breast WELL WOMAN - ESTABLISHED PT with ANICETO DALEY MD 07/08/2023 Last Documented On 4 5:02PM ; [facility] NORMAL FEMALE EXAM WELL WOMAN - ESTABLISHED PT w chino DALEY MD 07/08/2023 Last Documented On 4 5:02PM ; [facility] Screening Malig. Neoplasm Rectum WELL WO MAN - ESTABLISHED PT with ANICETO DALEY MD 07/08/2023 Last Documented On 4 5:02PM ; [facility] Fibrocystic disease of breast WELL WOMAN - ESTABLISHED PT with ANICETO DALEY MD 07/04/2020 Last Documented On 1 1:39PM ; [facility] NORMAL FEMALE EXAM WELL WOMAN - ESTABLISHED PT w ith ANICETO DALEY MD 07/04/2020 Last Documented On 1 1:39PM ; [facility] Screening Malig. Neoplasm Rectum WELL WO MAN - ESTABLISHED PT with ANICETO DALEY MD 07/04/2020 Last Documented On 1 1:39PM ; [facility] Fibrocystic disease of breast WELL WOMAN EXAM wi th ANICETO DALEY MD 08/14/2018 Last Documented On 9 4:16PM ; [facility] NORMAL FEMALE EXAM WELL WOMAN EXAM with ANICETO RICHARD MD 08/14/2018 Last Documented On 9 4:16PM ; [facility] Screening Malig. Neoplasm Rectum WELL WOMAN EXAM with ANICETO DALEY MD 08/14/2018 Last Documented On 9 4:16PM ; [facility] Fibrocystic disease of breast ANNUAL HAUL DRIVER EXAM wi th ANICETO DALEY MD 08/12/2017 Last Documented On 8 3:36PM ; [facility] NORMAL FEMALE EXAM ANNUAL HAUL DRIVER EXAM with ANICETO RICHARD MD 08/12/2017 Last Documented On 8 3:36PM ; [facility] Screening Malig. Neoplasm Rectum ANNUAL HAUL DRIVER EXAM with ANICETO DALEY MD 08/12/2017 Last Documented On 8 3:36PM ; [facility] Fibrocystic disease of breast ANNUAL HAUL DRIVER EXAM wi th ANICETO DALEY MD 07/28/2016 Last Documented On 7 1:19PM ; [facility] NORMAL FEMALE EXAM ANNUAL HAUL DRIVER EXAM with ANICETO RICHARD MD 07/28/2016 Last Documented On 7 1:19PM ; [facility] Screening Malig. Neoplasm Rectum ANNUAL HAUL DRIVER EXAM with ANICETO DALEY MD 07/28/2016 Last Documented On 7 1:19PM ; [facility] Fibrocystic disease of breast ANNUAL HAUL DRIVER EXAM wi th ANICETO DALEY MD 07/25/2015 Last Documented On 6 11:08AM ; [facility] NORMAL FEMALE EXAM ANNUAL HAUL DRIVER EXAM with ANICETO RICHARD MD 07/25/2015 Last Documented On 6 11:08AM ; [facility] Screening Malig. Neoplasm Rectum ANNUAL HAUL DRIVER EXAM with ANICETO DALEY MD 07/25/2015 Last Documented On 6 11:08AM ; [facility] Fibrocystic disease of breast ANNUAL HAUL DRIVER EXAM wi th ANICETO DALEY MD 07/22/2014 Last Documented On 5 2:37PM ; [facility] NORMAL FEMALE EXAM ANNUAL HAUL DRIVER EXAM with ANICETO RICHARD MD 07/22/2014 Last Documented On 5 2:37PM ; [facility] Screening Malig. Neoplasm Rectum ANNUAL HAUL DRIVER EXAM with ANICETO DALEY MD 07/22/2014 Last Documented On 5 2:37PM ; [facility] Breast fibrocystic disease ANNUAL HAUL DRIVER EXAM with ANICETO DALEY MD 07/17/2013 Last Documented On 4 9:47AM ; [facility] NORMAL FEMALE EXAM ANNUAL HAUL DRIVER EXAM with ANICETO RICHARD MD 07/17/2013 Last Documented On 4 9:47AM ; [facility] Screening Malig. Neoplasm Rectum ANNUAL HAUL DRIVER EXAM with ANICETO DALEY MD 07/17/2013 Last Documented On 4 9:47AM ; [facility] Breast fibrocystic disease ANNUAL HAUL DRIVER EXAM with ANICETO DALEY MD 07/12/2012 Last Documented On 3 10:01AM ; [facility] NORMAL FEMALE EXAM ANNUAL HAUL DRIVER EXAM with ANICETO RICHARD MD 07/12/2012 Last Documented On 3 10:01AM ; [facility] Screening Malig. Neoplasm Rectum ANNUAL HAUL DRIVER EXAM with ANICETO DALEY MD 07/12/2012 Last Documented On 3 10:01AM ; [facility] Breast fibrocystic disease NEW DYE WORKER EXAM with ANICETO DALEY MD 04/06/2011 Last Documented On 2 4:58PM ; [facility] NORMAL FEMALE EXAM NEW DYE WORKER EXAM with ANICETO CHRISTINE MD 04/06/2011 Last Documented On 2 4:58PM ; [facility] Screening Malig. Neoplasm Rectum NEW DYE WORKER EXAM wi th ANICETO DALEY MD 04/06/2011 Last Documented On 2 4:58PM ; [facility] Instructions Includes: Instructions for all patient encounters Instructions to patient Instructions for patient : B reast Self Exam discussed Last Documented On 4 9:50AM ; [facility] Instructions for patient : B reast Self Exam discussed Last Documented On 1 1:20PM ; [facility] Instructions for patient : B reast Self Exam discussed Last Documented On 9 1:57PM ; [facility] Instructions for patient : B reast Self Exam discussed Last Documented On 8 3:20PM ; [facility] Instructions for patient : B reast Self Exam discussed Last Documented On 7 1:00PM ; [facility] Instructions for patient : B reast Self Exam discussed Last Documented On 6 10:49AM ; [facility] Instructions for patient : B reast Self Exam discussed Last Documented On 5 2:17PM ; [facility] Instructions for patient : B reast Self Exam discussed Last Documented On 4 9:22AM ; [facility] Instructions for patient : B reast Self Exam discussed Last Documented On 3 9:45AM ; [facility] Instructions for patient : B reast Self Exam discussed Last Documented On 2 4:45PM ; [facility] Education and Decision Aids were provided during visit for: STD screening offered and de clined Last Documented On 4 9:50AM ; [facility] Bone Mineral Density Screeni ng guidelines reviewed : will rpt in 2025 (5 years apart) Last Documented On 4 9:53AM ; [facility] Patient Education: Daily bonnie cium and vitamin D Last Documented On 4 9:50AM ; [facility] Patient Education: weight be aring exercise Last Documented On 4 9:50AM ; [facility] Colonoscopy screening guidel elisa discussed Last Documented On 4 9:50AM ; [facility] STD screening offered and de clined Last Documented On 1 1:20PM ; [facility] Bone Mineral Density Screeni ng guidelines reviewed Last Documented On 1 1:20PM ; [facility] Patient Education: Daily bonnie cium and vitamin D Last Documented On 1 1:20PM ; [facility] Patient Education: weight be aring exercise Last Documented On 1 1:20PM ; [facility] Colonoscopy screening guidel elisa discussed Last Documented On 1 1:20PM ; [facility] STD screening offered and de clined Last Documented On 9 1:57PM ; [facility] Bone Mineral Density Screeni ng guidelines reviewed Last Documented On 9 1:57PM ; [facility] Patient Education: Daily bonnie cium and vitamin D Last Documented On 9 1:57PM ; [facility] Patient Education: weight be aring exercise Last Documented On 9 1:57PM ; [facility] Colonoscopy screening guidel elisa discussed Last Documented On 9 1:57PM ; [facility] STD screening offered and de clined Last Documented On 8 3:20PM ; [facility] Bone Mineral Density Screeni ng guidelines reviewed Last Documented On 8 3:20PM ; [facility] Patient Education: Daily bonnie cium and vitamin D Last Documented On 8 3:20PM ; [facility] Patient Education: weight be aring exercise Last Documented On 8 3:20PM ; [facility] Colonoscopy screening guidel elisa discussed Last Documented On 8 3:20PM ; [facility] STD screening offered and de clined Last Documented On 7 1:00PM ; [facility] Bone Mineral Density Screeni ng guidelines reviewed Last Documented On 7 1:00PM ; [facility] Patient Education: Daily bonnie cium and vitamin D Last Documented On 7 1:00PM ; [facility] Patient Education: weight be aring exercise Last Documented On 7 1:00PM ; [facility] Colonoscopy screening guidel elisa discussed Last Documented On 7 1:00PM ; [facility] STD screening offered and de clined Last Documented On 6 10:49AM ; [facility] Bone Mineral Density Screeni ng guidelines reviewed Last Documented On 6 10:49AM ; [facility] Patient Education: Daily bonnie cium and vitamin D Last Documented On 6 10:49AM ; [facility] Patient Education: weight be aring exercise Last Documented On 6 10:49AM ; [facility] Colonoscopy screening guidel elisa discussed Last Documented On 6 10:49AM ; [facility] STD screening offered and de clined Last Documented On 5 2:17PM ; [facility] Bone Mineral Density Screeni ng guidelines reviewed Last Documented On 5 2:17PM ; [facility] Patient Education: Daily bonnie cium and vitamin D Last Documented On 5 2:17PM ; [facility] Patient Education: weight be aring exercise Last Documented On 5 2:17PM ; [facility] Colonoscopy screening guidel elisa discussed Last Documented On 5 2:17PM ; [facility] STD screening offered and de clined Last Documented On 4 9:22AM ; [facility] Bone Mineral Density Screeni ng guidelines reviewed Last Documented On 4 9:22AM ; [facility] Patient Education: Daily bonnie cium and vitamin D Last Documented On 4 9:22AM ; [facility] Patient Education: weight be aring exercise Last Documented On 4 9:22AM ; [facility] Colonoscopy screening guidel elisa discussed Last Documented On 4 9:22AM ; [facility] STD screening offered and de clined Last Documented On 3 9:45AM ; [facility] Bone Mineral Density Screeni ng guidelines reviewed Last Documented On 3 9:45AM ; [facility] Patient Education: Daily bonnie cium and vitamin D Last Documented On 3 9:45AM ; [facility] Patient Education: weight be aring exercise Last Documented On 3 9:45AM ; [facility] Colonoscopy screening guidel elisa discussed Last Documented On 3 9:45AM ; [facility] Bone Mineral Density Screeni ng guidelines reviewed Last Documented On 2 4:45PM ; [facility] Patient Education: Daily bonnie cium and vitamin D Last Documented On 2 4:45PM ; [facility] Patient Education: weight be aring exercise Last Documented On 2 4:45PM ; [facility] Colonoscopy screening guidel elisa discussed Last Documented On 2 4:45PM ; [facility] Medical Equipment - Implanted Devices Includes: Current and historical Devices No Medical Equipment Recorded Medications Includes: Current and historical Medications Current Medications (continue as prescribed) Loratadine 10 MG Oral Tablet 07/08/2023 Provider: Diagnosis: Last Documented On 4 9:25AM By GIGI XIONG ; [facility] Zolpidem Tartrate 5 MG Oral Tablet 11/05/2022 Provid er: ROCK ALLAN MD Diagnosis: prn Last Documented On 4 9:25AM By GIGI XIONG ; [facility] Crestor 40 MG Oral Tablet 07/04/2020 Provider: Diagnosis: Last Documented On 1 1:01PM By GIGI XIONG ; [facility] Lisinopril 5 MG OR TABS 07/12/2012 Provider: Diagnosis: Last Documented On 3 9:37AM By ЮЛИЯ FAY MA ; [facility] TH Vitamin B12 100 MCG OR TABS 07/12/2012 Provider: Diagnosis: Last Documented On 3 9:37AM By ЮЛИЯ FAY MA ; [facility] CVS Vitamin C 250 MG OR TABS 07/12/2012 Provider: Diagnosis: Last Documented On 3 9:38AM By ЮЛИЯ FAY MA ; [facility] Adult Aspirin EC Low Strength 81 MG OR TBEC 04/06/2011 Provider: Diagnosis: Last Documented On 04/06/2011 2:54PM By MG MCNEAL LPN ; [facility] Fish Oil 1200 MG OR CAPS 04/06/2011 Provider: Diagnosis: Last Documented On 04/06/2011 2:55PM By MG MCNEAL LPN ; [facility] Daily Value Multivitamin OR TABS 04/06/2011 Provider : Diagnosis: Last Documented On 04/06/2011 2:57PM By MG MCNEAL LPN ; [facility] Calcium 600+D 600-400 MG-UNIT OR TABS 04/06/2011 Pro vider: Diagnosis: Last Documented On 04/06/2011 2:57PM By MG MCNEAL LPN ; [facility] Metoprolol Succinate ER 100 MG OR TB24 04/06/2011 Pr ovider: Diagnosis: BID Last Documented On 04/06/2011 2:53PM By MG MCNEAL LPN ; [facility] Past Medications on file EQL Vitamin D3 25 MCG (1000 UT) OR TABS 07/12/2012 - 0 07/08/2023 Provider: Diagnosis: Last Documented On 4 9:24AM By GIGI XIONG ; [facility] Crestor 20 MG OR TABS 04/06/2011 - 07/04/2020 Provider : Diagnosis: Last Documented On 1 1:01PM By GIGI XIONG ; [facility] Ambien 10 MG OR TABS 04/06/2011 - 07/25/2015 Provider: Diagnosis: Last Documented On 6 10:38AM By GIGI XIONG ; [facility] Zolpidem Tartrate 10 MG OR TABS 04/06/2011 - 1 Provider: Diagnosis: Last Documented On 04/06/2011 2:54PM By MG MCNEAL LPN ; [facility] Zolpidem Tartrate ER 12.5 MG OR TBCR 04/06/2011 - 040 06/2012 Provider: Diagnosis: Last Documented On 3 9:36AM By ЮЛИЯ FAY MA ; [facility] Calcium 600 MG OR TABS 04/06/2011 - 04/06/2011 Provide r: Diagnosis: PLUS D Last Documented On 04/06/2011 2:57PM By MG MCNEAL LPN ; [facility] Vicodin 5-500 MG OR TABS 04/06/2011 - 07/12/2012 Provi harris: Diagnosis: CUT INTO 04/14 AND 04/14 TAKEN BID FOR PT Last Documented On 3 9:37AM By ЮЛИЯ FAY MA ; [facility] Medications Administered Includes: Administered Medications in patient's chart No Administered Medications Recorded Vital Signs Includes: Vital Signs from 05/03/2023 through 05/03/2024 Vital Name 07/08/2023 09:18A Blood Pressure Sitting (mmHg) 140/86 Temp-Oral (F) 98.3 Height (in) 65 Weight (lb) 179.6 Body Mass Index 29.9 Body Surface Area 1.9 Last Documented: On 07/08/2023 9:23AM ; [facility] Results Includes: Results from 05/03/2023 through 05/03/2024 FOBT-FECAL OCCULT BLOOD TEST [facility] Ordered by ANICETO DALEY MD on 07/08/19 24 Collected: 07/08/2023 Reported: 07/08/19 24 10:46 Last Documented On 4 10:47AM ; [facility] All test results are final unless otherw ise noted. OCCULT BLOOD: negative (NEG.) N (Normal) Last Documented On 4 10:47AM ; [facility] INT. QC ACCEPTABLE? yes N (Normal) Last Documented On 4 10:47AM ; [facility] LOT # & EXP. DATE Lot#[id number] Exp: 08/08/25 N (Normal) Last Documented On 4 10:47AM ; [facility] History of Present Illness History of Present Illness not supported for this document type No History of Present Illness Recorded Social History Description Last Updated Social history changed 11/2013 ~ Also retired 201307/08/2023 Last Documented On 4 5:02PM ; [facility] Marital history and now has new partner since 01/202107/08/2023 Last Documented On 4 5:02PM ; [facility] Sexually active with 1 partners in the l ast year 07/08/2023 Last Documented On 4 5:02PM ; [facility] Exercising regularly 07/28/2016 Last Documented On 7 1:19PM ; [facility] 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; 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 07/25/2015 Last Documented On 6 11:08AM ; [facility] Smoking status : Never smoker 07/22/2014 Last Documented On 5 2:37PM ; [facility] Not sexually active 07/17/2013 Last Documented On 4 9:47AM ; [facility] Not using drugs 07/17/2013 Last Documented On 4 9:47AM ; [facility] Alcohol use 4 TIMES A MONTH 04/06/2011 Last Documented On 2 4:58PM ; [facility] Non-smoker 04/06/2011 Last Documented On 2 4:58PM ; [facility] Procedures and Surgical History Includes: Procedures from 05/03/2023 through 05/03/2024 Procedures Code Diagnosis Performing Provider Service Location Service Date FIT TEST-SCREENING FOR FECAL OCCULT BLOOD (CLIA WAIVED) 19166 Encounter for screening for malignant neoplasm of colon ANICETO DALEY MD [facility] 07/08/2023 Last Documented On 4 9:24AM ; [facility] Surgical History Last Updated Surgical / procedural histor y LEFT ROTATOR CUFF SURGERY 11/[address] Plasencia at [facility] ~BREAST REDUCTION SURGERY APR 2011-- bilateral with Dr Mitchell ~Rt joint replacement of big toe-07/17/2013 Last Documented On 4 9:47AM ; [facility] History of tubal ligation 07/12/2012 Last Documented On 3 10:01AM ; [facility] Medical History Includes: Medical History in patient's chart Description Last Updated Aborta 2 elective 07/08/2023 Last Documented On 4 5:02PM ; [facility] section x 1 and then 2 vaginal deliveries () 07/08/2023 Last Documented On 4 5:02PM ; [facility] 5 07/08/2023 Last Documented On 4 5:02PM ; [facility] Sexually active 07/08/2023 Last Documented On 4 5:02PM ; [facility] Surgical / procedural histor y LEFT ROTATOR CUFF SURGERY 11/[address] Plasencia at [facility] ~BREAST REDUCTION SURGERY APR 2011-- bilateral with Dr Mitchell ~Rt joint replacement of big toe- ~Reverse shoulder, Right, from a fall 12/202207/08/2023 Last Documented On 4 5:02PM ; [facility] Last mammogram date: 07/05/2023 [facility] 07/07 Last Documented On 4 5:02PM ; [facility] Result: normal 07/08/2023 Last Documented On 4 5:02PM ; [facility] Result: normal [facility] 07/08/2023 Last Documented On 4 5:02PM ; [facility] History of diaignostic fiberoptic colono scopy 11/08/[address] [facility] [address] Smith 07/08/2023 Last Documented On 4 5:02PM ; [facility] History of screening mammogram was perfo rmed 07/05/2023 [facility] 07/08/2023 Last Documented On 4 5:02PM ; [facility] PRIMARY CARE PROVIDER : is Dr Loretta Mauricio 08/12/2017 Last Documented On 8 3:36PM ; [facility] A colonoscopy was performed Dr Puente h November 2014 08/12/2017 Last Documented On 8 3:36PM ; [facility] Last pap smear date 07/28/2016 08/12/2017 Last Documented On 8 3:36PM ; [facility] Patient recently had a dexa scan 08/01/2014 at [facility] with T-scores of 1.4 , 0.0, and 1.7; 07/25/2015 Last Documented On 6 11:08AM ; [facility] Herpes zoster (shingles) --- on her left face---June 2013 07/17/2013 Last Documented On 4 9:47AM ; [facility] Anxiety 07/17/2013 Last Documented On 4 9:47AM ; [facility] History of prior myocardial infarction they think it was a heart attack at age 52 07/17/2013 Last Documented On 4 9:47AM ; [facility] Para 3 07/17/2013 Last Documented On 4 9:47AM ; [facility] History of benign essential hypertension 07/12/2012 Last Documented On 3 10:01AM ; [facility] History of chronic reflux esophagitis Last Documented On 3 10:01AM ; [facility] History of hyperlipidemia 07/12/2012 Last Documented On 3 10:01AM ; [facility] Status post tubal ligation 199507/13/19 Last Documented On 3 10:01AM ; [facility] EMBX 12/23/04 04/06/2011 Last Documented On 2 4:58PM ; [facility] LMP: 04/06/2003 04/06/2011 Last Documented On 2 4:58PM ; [facility] Family History Includes: Family History in patient's chart Description Last Updated Fraternal history of family history unchanged A BROTHER PASSED OF LUNG CA at age 42 07/08/2023 Last Documented On 4 5:02PM ; [facility] Family history of cancer neice- pancreat ic cancer 07/08/2023 Last Documented On 4 5:02PM ; [facility] Family history of systemic hypertension PT 07/08/2023 Last Documented On 4 5:02PM ; [facility] Fraternal history of heart disease 07/07 Last Documented On 4 5:02PM ; [facility] Fraternal history of systemic hypertensi on 07/08/2023 Last Documented On 4 5:02PM ; [facility] Maternal history of heart disease 2023 Last Documented On 4 5:02PM ; [facility] Maternal history of systemic hypertensio n MGF 07/08/2023 Last Documented On 4 5:02PM ; [facility] Family history of Alzheimer disease thinks 3rd sister has it; being treated for it 07/08/2023 Last Documented On 4 5:02PM ; [facility] Sororal history of breast cancer 2nd sis ter 07/08/2023 Last Documented On 4 5:02PM ; [facility] Sororal history of Alzheimer disease older sister 06/2022 from alzheimers at 79 yo 07/08/2023 Last Documented On 4 5:02PM ; [facility] Sororal history of uterine c ancer SISTER- endometrial cancer- age 75 (hyst 08/14/2018) ~Different SISTER- endometrial cancer- age 57 and also thyroid papillary carcinoma age 60 08/14/2018 Last Documented On 9 4:16PM ; [facility] Maternal aunt's history of m alignant female breast neoplasm in a maternal aunt in her 60's ~ 08/14/2018 Last Documented On 9 4:16PM ; [facility] Paternal aunt's history of m alignant female breast neoplasm paternal aunt at 68 08/14/2018 Last Documented On 9 4:16PM ; [facility] Sororal history of malignant female breast neoplasm sister 68 is currently under treatment-chem double mastectomy and radiation (both breast)-bracca testing was negative( different sister than the two with endometrial cancer) 08/14/2018 Last Documented On 9 4:16PM ; [facility] Sororal history of diabetes mellitus sis ter 07/25/2015 Last Documented On 6 11:08AM ; [facility] Family history of diabetes mellitus sist er 07/17/2013 Last Documented On 4 9:47AM ; [facility] Family history of malignant female breast neoplasm in a maternal aunt in her 60's and a paternal aunt at 68 ~sister 68 is currently under treatment-chem double mastectomy and radiation (both breast)-bracca testing was negative 07/17/2013 Last Documented On 4 9:47AM ; [facility] Family history of hypercholesterolemia P T. AND FAMILY 04/06/2011 Last Documented On 2 4:58PM ; [facility] Family history unchanged A BROTHER PASSCoby D OF LUNG CA 04/06/2011 Last Documented On 2 4:58PM ; [facility] Heart disease PT. AND FAMILY 04/06/2011 Last Documented On 2 4:58PM ; [facility] Review of Systems Review of Systems not supported for this document type No Review of Systems Recorded Mental Status Description Anxiety Functional Status No Functional Status Recorded Physical Exam Physical Exam not supported for this document type No Physical Exam Recorded Allergies Includes: Active, inactive, and resolved Allergies Substance Type Reaction Onset Date Resolved Date Statu s SEASONAL Allergy 07/04/2020 Active Last Documented On 1 1:02PM ; [facility] Encounters Includes: Encounters from 05/03/2023 through 05/03/2024 Encounter Provider Location Date Check-In Time Check-Out Time Diagnosis [facility]LL [facility]OMAN - ESTABLISHED PT ANICETO DALEY MD [facility] 07/08/19 24 9:05AM 10:08AM Breast Fibrocystic Disease,Screen ing Malig. Neoplasm Rectum,Normal Female Exam Insurance Includes: Active Insurance Policies Plan Name Member ID Group # Subscriber Relationship Effect baldomreo Dates 1 - [facility]/MEDICARE ADV/[employer] [id number] FERNANDEZ BROWNE Se lf Clinical Notes Includes: Signed Clinical Notes starting from 04/30/2022 * Progress note Date Encounter Last Documented by 07/08/2023 WELL WOMAN - ESTABLISHED PT Last documented on 07/08/2023; 5:02 PM, ANICETO DALEY MD; [facility] Active Problems & Conditions - ESOPHAGEAL REFLUX [...] CUFF SURGERY 11/[address] Plasencia at [facility] BREAST REDUCTION SURGERY APR 2011-- bilateral with Dr Mitchell Rt joint replacement of big toe- Reverse shoulder, Right, from a fall 12/2022. Tests: A colonoscopy was performed Dr Smith November 2014 and patient recently had a dexa scan 08/01/2014 at [facility] with T-scores of 1.4 , 0.0, and 1.7; : 5, para 3, aborta 2 elective, and history of the : section x 1 and then 2 vaginal deliveries (). Sexual: Sexually active. Other: Diaignostic fiberoptic colonoscopy 11/08/2014 [facility] [address] Smith. Screening mammogram was performed 07/05/2023 [facility] Diagnoses: Prior myocardial infarction they think it [...] in the last year. 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 Allergies - SEASONAL Family History Heart disease [...] Uterine cancer SISTER- endometrial cancer- age 75 ([facility] 08/14/2018) Different SISTER- endometrial cancer- age 57 [...] Tests: Patient recently had a dexa scan 7/26/21 [facility]. Pathology: Cytology: Cervical Pap smear 07/28/2016 [...]
--- OUTSIDE RECORDS SUMMARY | 2024-05-03 15:06 | XMS_ITS | Clinical Summary ---
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 Name Role Phone Sheri Holden MD Primary Care Provider [phone]- [phone] Allergies No known active allergies Medications aspirin 81 mg tablet take 1 tablet by oral route every day 0 0 02/12/2014 Active cyanocobalamin (Vitamin B-12) 1,000 mcg tablet otc 0 0 02/12/2014 Active multivitamin capsule take 1 capsule by oral route every day 0 02/12/2014 Active omega 4-tyq-jav-fish oil (FISH OIL) 100-160-1,000 mg capsule otc 0 0 02/12/2014 Active ascorbic acid (ascorbic acid with nicki hips) 500 mg tablet,chewable OTC 30 0 02/12/2014 Active calcium carbonate-vitam in D3 (CALCIUM 500 + D) 500 mg(1,250mg) -400 unit tablet OTC 30 0 02/12/2014 Active zolpidem (AMBIEN) 5 mg tablet take 04/14-8 Tablet by oral route every day at bedtime prn insomnia. 15 0 02/12/2014 Active ibuprofen 200 mg capsule take 2-4 caps po qhs 0 0 07/14/2016 Active diphenhydrAMINE (BENADRYL) 25 mg capsule Take 25 mg by mouth nightly as needed for itching Active rosuvastatin (CRESTOR) 40 mg tablet Take 1 tablet (40 mg total) by mouth daily 90 tablet 3 10/31/2023 Active metoprolol XL (TOPROL-XL) 100 mg 24 hr tablet Take 1 tablet (100 mg total) by mouth daily 90 tablet 3 10/31/2023 Active lisinopriL (PRINIVIL,ZESTR IL) 5 mg tablet Take 1 tablet (5 mg total) by mouth daily 90 tablet 3 10/31/2023 Active vit C/E/Zn/coppr/leidy tein/zeaxan (OCUVITE LUTEIN AND ZEAXANTHIN ORAL) Take by mouth Active Active Problems Problem Noted Date Diagnosed Date Need for vaccination 01/29/2015 Overview (07/16/2016): Encounter for immunization Chronic coronary artery disease 02/12/2014 Overview (07/16/2016): CAD Hypertension 02/12/2014 Overview (07/16/2016): HTN Hyperlipidemia 08/25/2013 Overview (07/14/2016): Hyperlipidemia Impaired glucose tolerance 09/22/2012 Overview (07/14/2016): Glucose intolerance (impaired glucose tolerance) Encounters Date Type Department Care Team Description 04/23/2024 1:00 PM LIBRARY PARAPROFESSIONAL Procedure visit [facility] Otolaryngology [facility] [address]th [place] [address] [place] [address] Coco Peterson Au.D. BPPV (benign paroxysmal positional vertigo), bilateral (Primary Dx) 04/19/2024 10:00 AM LIBRARY PARAPROFESSIONAL Procedure visit [facility] Otolaryngology [address] [place] [address] [address] [place] [address] [place] [address] Coco Peterson Au.D. Dizziness from Last 3 Months Immunizations Name Administration Dates Next Due Influenza, Quadrivalent, Spl it, Preservative Free, Intradermal 12/22/2015,01/29/2015 Influenza, Quadrivalent, Spl it, Preservative Free, Intramuscular 01/11/2017 Influenza, Trivalent, Recomb inant, Egg Free, Preservative Free, Antibiotic Free, IM (FLUBLOK) 02/12/2014 TD Preservative Free 12/31/2014 Tdap 05/08/2009 ZOSTER LIVE 01/09/2013,01/04/2013 Surgical History Surgery Date Site/Laterality Comments SECTION 04/11/1989 - 04/10/1990 section OTHER SURGICAL HISTORY 04/11/2010 - 04/10/2011 L ROTATOR CUFF SURG OTHER SURGICAL HISTORY left rotator cuff 2010 OTHER SURGICAL HISTORY breast reduction 2011 OTHER SURGICAL HISTORY rt great toe (joint replacement surgery) [address] 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 Oreilly/Cardiology REDUCTION MAMMAPLASTY Family History Medical History Relation Name Comments Other Brother 1 angus lung cancer; Ca use of : lung cancer Lung cancer Brother 2 Cancer -lung; Hyperlipidemia Brother 3 farzana High choleste rol; Coronary artery disease Cousin Brittney nary artery disease, premature; Alcohol abuse Father Alcoholism; Blood Clot Father BLOOD CLOT; Other Father embolism from f racture; Cause of : embolism from fracture Alzheimer's disease Mother Alzheime r's Disease; Coronary artery disease Mother Brittney nary artery disease, premature; /Coronary artery disease; Heart failure Mother Congestive hea rt failure; /chf; Cause of : chf Other Mother cholecystectomy ; Coronary artery disease Mother's Brother Coronary artery disease, premature; Coronary artery disease Other 1 Fami ly history of Coronary artery disease, premature; Hypertension Other 2 Family history of Hypertension; Hyperlipidemia Other 3 Family histor y of Hyperlipidemia; COPD Other 4 Family history of COPD; Dementia Other 5 Family history of Dementia; Other Sister 1 galo Alive and well; Diabetes type II Sister 2 Diabetes -T ype 2; Diabetes Sister 3 Cesia Diabetes mellit ; Breast cancer Sister 4 Berneice breast cancer; Coronary artery disease Sister 5 regina Brittney nary artery disease; Other Sister 5 regina thyroid problem ; Thyroid disease Sister 6 richard thyroid dise ase; Other Sister 7 factor v leiden x 2 sister; Relation Name Status Comments Brother 1 angus Brother 2 Brother 3 farzana Cousin Father Mother Mother's Brother Other 1 Other 2 Other 3 Other 4 Other 5 Sister 1 galo Alive Sister 2 Sister 3 Cesia Sister 4 Berneice Sister 5 regina Sister 6 richard Sister 7 Social History Tobacco Use Types Packs/Day Years Used Date Smoking Tobacco: Never Smokeless Tobacco: Never Tobacco Cessation:Counseling Given: Not Answered Alcohol Use Standard Drinks/Week Comments Yes 0 (1 standard drink = 0.6 oz pur e alcohol) Comments No Sex and Gender Information Value Date Recorded Sex Assigned at Not on file Legal Sex Female 11:29 PM LIBRARY PARAPROFESSIONAL Gender Identity Not on file Sexual Orientation Not on file Obstetrics History Para Term AB IAB SAB Ectopic Multiple Livin g Live Births 3 3 3 Date Outcome GA Total Labor Labor/2nd/3rd Weight Sex Type Anes PTL Mila A1 A5 Name Clin Term Term Term Last Filed Vital Signs Vital Sign Reading Time Taken Comments Blood Pressure 121/79 12/15/2023 10:53 AM CDT Pulse 62 12/15/2023 10:53 AM CDT Temperature 36.8 ??C (98.2 ??F) 12/11/2021 12:34 PM C DT Respiratory Rate 18 12/15/2023 10:53 AM CDT Oxygen Saturation - - Inhaled Oxygen Concentration - - Weight 82.1 kg (181 lb) 12/15/2023 10:53 AM CDT Height 167.6 cm (5' 6 ) 12/15/2023 10:53 AM CDT Body Mass Index 29.21 12/15/2023 10:53 AM CDT Plan of Treatment Health Maintenance Due Date Last Done Comments Fall Risk Assessment 1950 Hepatitis C Screening 1950 Hepatitis B Screening 02/01/1970 Well Visit 65+ 02/01/2017 Depression Screening 01/11/2018 01/11/2017 Zoster Vaccine (3 of 3) 12/22/2018 10/28/19 19, 01/09/2013, 01/04/2013 Osteoporosis Screening-Bone Density Scan 11/03/2022 11/03/2020 Influenza Vaccine (#1) 2023 0, 02/09/2018, 01/11/2017, Additional history exists Breast Cancer Screening-Mammogram 07/04/2024 07/05/2023, 03/30/2022, 05/12/2020, Additional history exists Colon Cancer Screening-Colonoscopy 11/08/2024 11/08/2014, 11/08/2014, 11/08/2014 DTaP/Tdap/Td Vaccine (4 - Td or Tdap) 09/01/2030 09/01/2020, 12/31/2014, 05/08/2009 Colon Cancer Screening-CT Colonography Discontinued 11/08/2014, 11/08/2014, 11/08/2014 Colon Cancer Screening-DNA Stool Discontinued 11/08/2014, 11/08/2014, 11/08/2014 Colon Cancer Screening-FIT Discontinued 11/08, 11/08/2014, 11/08/2014 Colon Cancer Screening-Sigmoidoscopy Discontinued 11/08/2014, 11/08/2014, 11/08/2014 Pneumococcal vaccine 65+ Completed 05/08/2019, 03/11 Procedures Procedure Name Priority Date/Time Associated Diagnosis Comments SCREENING MAMMOGRAM BILATERAL W JEFF Schedule Routine, Read Routine (OP Routine) 07/05/2023 4:46 PM CDT Screening mammogram, encounter for DEXA AXIAL SKELETON BONE DENSITY 1 OR MORE SITES Schedule Routine, Read Routine (OP Routine) 11/03/2020 2:35 PM CDT Encounter for screening for osteoporosis COLONOSCOPY IMAGES 11/08/2014 from Last 3 Months or Most Recently Relevant to Health Maintenance Results * Screening Mammogram Bilateral W Jeff (07/05/2023 4:46 PM CDT) Anatomical Region Laterality Modality Breast Bilateral Mammography 07/06/2023 9:41 PM CDT Impressions 07/06/2023 9:41 PM CDT There is no mammographic evidence of malignancy. A 1 year screening mammogram is recommended. BI-RADS: 1 - Negative. The patient has been or will be contacted. The patient will be entered into a reminder system with a target due date of 1 year for her next mammogram. Electronically signed by: Bina Sorensen M.D. Narrative 07/06/2023 9:41 PM CDT EXAMINATION: SCREENING MAMMOGRAM BILATERAL W JEFF ORDERING HEALTHCARE PROVIDER: SELF SCREENING MAMMOGRAM HISTORY: Routine screening mammography. COMPARISON: ??03/30/2022, 05/12/2020, 09/13/2018 TECHNIQUE: CC and MLO views of the bilateral breasts were obtained with digital technique using breast tomosynthesis with C view. Computer aided detection was utilized. FINDINGS: DENSITY: There are scattered fibroglandular elements in the bilateral breasts. BREASTS: There are no suspicious masses, suspicious calcifications, or other suspicious findings in either breast. There has been no suspicious interval change. us Self Screening Mammogram IMG MAMMO PROCEDURES Fi nal Result * Dexa Axial Skeleton Bone Density 1 or 2 Site (11/03/2020 2:35 PM CDT) Anatomical Region Laterality Modality Body N/A Other 11/03/2020 2:51 PM CDT Narrative 11/03/2020 2:52 PM CDT EXAM DESCRIPTION: ?? DEXA AXIAL SKELETON BONE DENSITY 1 OR MORE SITES REASON FOR STUDY: ?70 year old female with given history of postmenopausal state. 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 [employer] Discovery SL (S/N [id number]) CLINICAL INFORMATION: ??Current height: ??66 inches ? Maximum height: 66 inches ? Weight: 162 pounds Risk factors: None reported Reported use of vitamin-D and calcium. COMPARISON: ??None available. FINDINGS: AP LUMBAR SPINE L1-L4: Total BMD is ??1.143 g/cm2 T-score is 0.9 LEFT HIP: Total BMD is 1.063 g/cm2 T-score is 1.0 Femoral neck BMD is 0.820 g/cm2 T-score is -0.3 IMPRESSION: ?? Normal bone mineral density. REFERENCE: ??Bone mineral density: ? Normal (T-score above or = -1.0) ? Low bone mass ??(T-score between -1.0 and -2.5) replaces the previously used term osteopenia ? Osteoporosis (T-score = or below -2.5) Medical evaluation for secondary causes of low bone mineral density may be appropriate. FRAX is a World Health Organization validated fracture risk assessment tool that calculates a person's 10 year probability of a major osteoporosis related fracture and hip fracture. ??According to the National Osteoporosis Foundation guidelines, postmenopausal women and men age 50 or older with low bone mass and a 10 year probability of a major osteoporosis related fracture = or greater than 20% or a 10 year probability of a hip fracture = or greater than 3% should be considered for treatment. For further information, including treatment recommendations, please refer to the 2013 ISCD Official Positions (http://www.iscd.org) and the NOF's Clinician's Guide to Prevention and Treatment of Osteoporosis (http://www.nof.org/professionals/clinical-guidelines) THIS IS AN ELECTRONICALLY VERIFIED FINAL REPORT 11/03/2020 2:52 PM - Electronically signed by Andi Hunter M.D. MD: D: ??11/03/2020 2:52 PM T: ??11/03/2020 2:52 PM Report ID: [id number] Reading Location: ??[id number] Procedure Note Andi Hunter MD - 11/03/2020 EXAM DESCRIPTION: DEXA AXIAL SKELETON BONE DENSITY 1 OR MORE SITES REASON FOR STUDY: 70 year old female with given history ofpostmenopausal state. Clay Washer/Model: efw-suhl SL (S/N [id number]) CLINICAL INFORMATION: Current height: 66 inches Maximum height: 66 inches Weight: 162 pounds Risk factors: None reported Reported use of vitamin-D and calcium. COMPARISON: None available. FINDINGS: AP LUMBAR SPINE L1-L4: Total BMD is 1.143 g/cm2 T-score is 0.9 LEFT HIP: Total BMD is 1.063 g/cm2 T-score is 1.0 Femoral neck BMD is 0.820 g/cm2 T-score is -0.3 IMPRESSION: Normal bone mineral density. REFERENCE: Bone mineral density: Normal (T-score above or = -1.0) Low bone mass (T-score between -1.0 and -2.5) replaces thepreviously used term osteopenia Osteoporosis (T-score = or below -2.5) Medical evaluation for secondary causes of low bone mineral density may be appropriate. FRAX is a World Health Organization validated fracture risk assessmenttool that calculates a person's 10 year probability of a major osteoporosisrelated fracture and hip fracture. According to the National OsteoporosisFoundation guidelines, postmenopausal women and men age 50 or older with low bonemass and a 10 year probability of a major osteoporosis related fracture = or greater than 20% or a 10 year probability of a hip fracture = or greaterthan 3% should be considered for treatment. For further information, including treatment recommendations, please referto the 2013 ISCD Official Positions (http://www.iscd.org) and the NOF's Clinician's Guide to Prevention and Treatment of Osteoporosis (http://www.nof.org/professionals/clinical-guidelines) THIS IS AN ELECTRONICALLY VERIFIED FINAL REPORT 11/03/2020 2:52 PM - Electronically signed by Andi Hunter M.D. MD: Report ID: [id number] Reading Location: [place] [id number] Yrn Chen MD IMG DXA PROCEDURES Final Resu lt * COLONOSCOPY IMAGES (11/08/2014) Anatomical Region Laterality Modality Other Narrative 11/08/2014 Ordered by an unspecified provider. Historical Provider GI PROCEDURE ORDERABLES F inal Result from Last 3 Months or Most Recently Relevant to Health Maintenance Insurance MEDICARE [facility] SUPPLEMENT MEDICARE [facility] SUPPLEMENT MEDICARE SOLUTIONS [facility] SUPPLEMENT MEDICARE SOLUTIONS Care Teams Feed Mill Operator Relationship Specialty Start Date End Date Sheri Holden MD [address] [place] [place] [address] PCP - General 07/09/16
--- OUTSIDE RECORDS SUMMARY | 2024-05-03 15:07 | XMS_ITS | Referral Summary ---
Author Organization [facility] A Address [address] [place] [address] Care Team Providers Care Currency Counter Name Role Phone Sheri Holden MD Primary Care Provider +1- [phone] Encounters Date Type Department Care Team Description 04/23/2024 1:00 PM CEMENT MASON APPRENTICE Procedure visit [facility] Otolaryngology [address] [place] [address] 11th [place] [id number] Coco Peterson Au.D. BPPV (benign paroxysmal positional vertigo), bilateral (Primary Dx) 04/19/2024 10:00 AM CEMENT MASON APPRENTICE Procedure visit [facility] Otolaryngology [address] [place] [address] 11th [place] [address] [place] [id number] Coco Peterson Au.D. Dizziness from Last 3 Months Allergies No known active allergies Medications aspirin 81 mg tablet take 1 tablet by oral route every day 0 0 02/12/2014 Active cyanocobalamin (Vitamin B-12) 1,000 mcg tablet otc 0 0 02/12/2014 Active multivitamin capsule take 1 capsule by oral route every day 0 02/12/2014 Active omega 6-swh-odx-fish oil (FISH OIL) 100-160-1,000 mg capsule otc 0 0 02/12/2014 Active ascorbic acid (ascorbic acid with nicki hips) 500 mg tablet,chewable OTC 30 0 02/12/2014 Active calcium carbonate-vitam in D3 (CALCIUM 500 + D) 500 mg(1,250mg) -400 unit tablet OTC 30 0 02/12/2014 Active zolpidem (AMBIEN) 5 mg tablet take 04/14-18 Tablet by oral route every day at [...] Overview (07/14/2016): Glucose intolerance (impaired glucose tolerance) Immunizations Name Administration Dates Next Due Influenza, Quadrivalent, Spl it, Preservative Free, Intradermal 12/22/2015,01/29/2015 Influenza, Quadrivalent, Spl it, Preservative Free, Intramuscular 01/11/2017 Influenza, Trivalent, Recomb inant, Egg Free, Preservative Free, Antibiotic Free, IM (FLUBLOK) 02/12/2014 TD Preservative Free 12/31/2014 Tdap 05/08/2009 ZOSTER LIVE 01/09/2013,01/04/2013 Social History Tobacco Use Types Packs/Day Years Used Date Smoking Tobacco: Never Smokeless Tobacco: Never Tobacco Cessation:Counseling Given: Not Answered Alcohol Use Standard Drinks/Week Comments Yes 0 (1 standard drink = 0.6 oz pur e alcohol) Comments No Sex and Gender Information Value Date Recorded Sex Assigned at Not on file Legal Sex Female 11:29 PM CEMENT MASON APPRENTICE Gender Identity Not on file Sexual Orientation [...] 12/15/2023 10:53 AM CDT Plan of Treatment Not on file Procedures Procedure Name Priority Date/Time Associated Diagnosis Comments SCREENING MAMMOGRAM BILATERAL W ADRIAN Schedule Routine, Read Routine (OP Routine) 07/05/2023 4:46 PM CDT Screening mammogram, encounter for DEXA AXIAL SKELETON BONE DENSITY 1 OR MORE SITES Schedule Routine, Read Routine (OP Routine) 11/03/2020 2:35 PM CDT Encounter for screening for osteoporosis COLONOSCOPY IMAGES 11/08/2014 from Last 3 Months or Most Recently Relevant to Health Maintenance Results * Screening Mammogram Bilateral W Adrian (07/05/2023 4:46 PM CDT) Anatomical Region Laterality [...] PM CDT EXAMINATION: SCREENING MAMMOGRAM BILATERAL W ADRIAN ORDERING HEALTHCARE PROVIDER: SELF SCREENING MAMMOGRAM HISTORY: [...] female with given history of postmenopausal state. Hr Payroll Coordinator/Model: ?? Build[employer] (S/N [id number]) CLINICAL INFORMATION: ??Current height: ??66 inches ? [...] PM - Electronically signed by Andi Hunter M.D., MD: D: ??11/03/2020 2:52 PM T: ??11/03/2020 2:52 PM Report ID: [id number] Reading Location: ??[id number] Procedure Note Andi Hunter MD - 11/03/2020 EXAM DESCRIPTION: DEXA AXIAL SKELETON BONE DENSITY 1 OR MORE SITES REASON FOR STUDY: 70 year old female with given history ofpostmenopausal state. Hr Payroll Coordinator/Model: Rapid Vocabulary SL (S/N [id number]) CLINICAL INFORMATION: Current height: 66 inches Maximum [...] PM - Electronically signed by Andi Hunter M.D., MD: Report ID: [id number] Reading Location: [id number] Yrn Chen MD IMG DXA PROCEDURES Final Resu lt * COLONOSCOPY IMAGES (11/08/2014) Anatomical Region Laterality Modality Other Narrative 11/08/2014 Ordered by an unspecified provider. Historical Provider GI PROCEDURE ORDERABLES F inal Result from Last 3 Months or Most Recently Relevant to Health Maintenance Insurance [facility] SUPPLEMENT MEDICARE [facility] SUPPLEMENT MEDICARE SOLUTIONS [facility] SUPPLEMENT MEDICARE SOLUTIONS Care Teams Currency Counter Relationship Specialty Start Date End Date Sheri Holden MD [address] [place] [address] PCP - General 07/09/16
== END 2024-05-02 11:10 | disposition home or self-care (01) ==
LOC: ANHSURGERY 10:37 → ANH3MEDSUR 11:14
PROVIDERS: Physician Assistant Surgical; PCP Internal Medicine; Visit Provider Orthopaedic Surgery
PROC: (CPT 23472; principal; 2024-05-01 07:30)
DX: M12.812 Other specific arthropathies, not elsewhere classified, left shoulder (principal); M25.712 Osteophyte, left shoulder; M75.02 Adhesive capsulitis of left shoulder; G89.18 Other acute postprocedural pain; I10 Essential (primary) hypertension; Z79.82 Long term (current) use of aspirin; Z79.1 Long term (current) use of non-steroidal anti-inflammatories (NSAID); Z98.890 Other specified postprocedural states; Z96.611 Presence of right artificial shoulder joint; Z86.79 Personal history of other diseases of the circulatory system; Z80.3 Family history of malignant neoplasm of breast; Z82.49 Family history of ischemic heart disease and other diseases of the circulatory system
CPT/HCPCS: 64415; 23472; 36415; 73030; 80048; 85025; 86850; 86900; 86901; 87641; 97110; 97161; 97165; 97530; 97535; A4565; A9270; C1776; J0171; J0690; J1885; J2270; J2795; J3010; J3370; J7120

== ENCOUNTER 2024-05-22 10:19 | Outpatient (CLI) | payer MEDICARE, SELFPAY ==
--- NOTE | ~2024-05-22 | XR_ITS ---
EXAMINATION: XR shoulder LT min 2V DATE: 05/22/2024 10:43 INDICATION: Presence of left artificial shoulder joint. TECHNIQUE: 5 views of left shoulder were obtained. COMPARISON: Left shoulder radiographs 05/01/2024 FINDINGS: There is a reverse wbnw-zbq-pgodff total left shoulder arthroplasty in near-anatomic alignm ent. No fracture. No periprosthetic lucency to suggest loosening or infection. 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 IMPRESSION: 1. Reverse uxfg-ogq-moayfh total left shoulder arthroplasty in near-anatomic alignment. Reviewed, dictated and finalized at location A. WORKING MACHINE OFFBEARER IMPRESSION: 1. Reverse sgcf-ubp-llsnlw total left shoulder arthroplasty in near-anatomic al ignment.
--- OUTSIDE RECORDS SUMMARY | 2024-05-22 11:26 | XMS_ITS | Clinical Summary ---
Author Organization [facility] Address [address] [facility], [address] [address] Phone Care Team Providers Care Veterinary Laboratory Diagnostician Name Role Phone Sheri Holden MD Primary Care Provider [phone] Medications lisinopril (PRINIVIL, ZESTRIL) 5 MG Tablet [...] age to complete this topic Care Teams Veterinary Laboratory Diagnostician Relationship Specialty Start Date End Date Sheri Holden MD [address] [place] [address] PCP - General Internal Medicine 10/20/15
--- OUTSIDE RECORDS SUMMARY | 2024-05-22 11:27 | XMS_ITS | Referral Summary ---
Author Organization [facility] Medical Office Building A Address [address] [place] [address] Care Team Providers Care Optical Glass Sawyer Name Role Phone Sheri Holden MD Primary Care Provider [phone] Encounters Date Type Department Care Team Description 04/23/2024 1:00 PM DELIVERY HELPER Procedure visit [facility] Otolaryngology [address] [place] [address] [address] [place] [address] [place] [phone] Coco Peterson Au.D. BPPV (benign paroxysmal positional vertigo), bilateral (Primary Dx) 04/19/2024 10:00 AM DELIVERY HELPER Procedure visit [facility] Otolaryngology [address] [place] [address] [address] [place] [address] [place] [id number] Coco Peterson Au.D. Dizziness from Last 3 Months Allergies No known active allergies Medications aspirin 81 mg tablet take 1 tablet by oral route every day 0 0 02/12/2014 Active cyanocobalamin (Vitamin B-12) 1,000 mcg tablet otc 0 0 02/12/2014 Active multivitamin capsule take 1 capsule by oral route every day 0 02/12/2014 Active omega 2-ham-bwe-fish oil (FISH OIL) 100-160-1,000 mg capsule otc [...] on file Legal Sex Female 11:29 PM DELIVERY HELPER Gender Identity Not on file Sexual Orientation Not on file Last Filed Vital Signs Vital Sign Reading Time Taken Comments Blood Pressure 121/79 12/15/2023 10:53 AM CDT Pulse 62 12/15/2023 10:53 AM CDT Temperature 36.8 C (98.2 F) 12/11/2021 12:34 PM CDT Respiratory Rate 18 12/15/2023 10:53 AM CDT [...] SCREENING MAMMOGRAM HISTORY: Routine screening mammography. COMPARISON: 03/30/2022, 05/12/2020, 09/13/2018 TECHNIQUE: CC and MLO views [...] Narrative 11/03/2020 2:52 PM CDT EXAM DESCRIPTION: DEXA AXIAL SKELETON BONE DENSITY 1 OR MORE SITES REASON FOR STUDY: 70 year old female with given history of postmenopausal state. Talent Development Analyst/Model: [employer] SL (S/N [id number]) CLINICAL INFORMATION: Current height: 66 inches Maximum [...] mass (T-score between -1.0 and -2.5) replaces the previously used term osteopenia Osteoporosis (T-score = or below -2.5) Medical evaluation for secondary causes of low bone mineral density may be appropriate. FRAX is a World Health Organization validated fracture risk assessment tool that calculates a person's 10 year probability of a major osteoporosis related fracture and hip fracture. According to the National Osteoporosis Foundation guidelines, postmenopausal [...] by Andi Hunter M.D., MD: Report ID: [id number] Reading Location: [place] [address] Procedure Note Andi Hunter MD - 11/03/2020 EXAM DESCRIPTION: DEXA AXIAL SKELETON BONE DENSITY 1 OR MORE SITES REASON FOR STUDY: 70 year old female with given history ofpostmenopausal state. Talent Development Analyst/Model: TareasPlus (S/N [id number]) CLINICAL INFORMATION: Current height: 66 inches Maximum [...] by Andi Hunter M.D. MD: Report ID: [id number] Reading Location: [place] [address] Yrn Chen MD IMG DXA PROCEDURES Final Resu lt * COLONOSCOPY IMAGES (11/08/2014) Anatomical Region Laterality Modality Other Narrative 11/08/2014 Ordered by an unspecified provider. Historical Provider GI PROCEDURE ORDERABLES F inal Result from Last 3 Months or Most Recently Relevant to Health Maintenance Insurance MEDICARE [facility] SUPPLEMENT MEDICARE [facility] SUPPLEMENT MEDICARE SOLUTIONS [facility] MCR SUPPLEMENT MEDICARE SOLUTIONS Care Teams Optical Glass Sawyer Relationship Specialty Start Date End Date Sheri Holden MD [address] [place] [address] PCP - General 07/09/16
--- OUTSIDE RECORDS SUMMARY | 2024-05-22 11:27 | XMS_ITS | Clinical Summary ---
Author Organization [facility] Medical Office Building [address] Address [address] [place] [address] Care Team Providers Care [employer] Administrator Name Role Phone Sheri Holden MD Primary Care Provider [phone] Allergies No known active allergies Medications aspirin 81 mg tablet take 1 tablet by oral route every day 0 0 02/12/2014 Active cyanocobalamin (Vitamin B-12) 1,000 mcg tablet otc 0 0 02/12/2014 Active multivitamin capsule take 1 capsule by oral route every day 0 02/12/2014 Active omega 1-gcf-okx-fish oil (FISH OIL) 100-160-1,000 mg capsule otc 0 0 02/12/2014 Active ascorbic acid (ascorbic acid with nicki hips) 500 mg tablet,chewable OTC 30 0 02/12/2014 Active calcium carbonate-vitam in D3 (CALCIUM 500 + D) 500 mg(1,250mg) -400 unit tablet OTC 30 0 02/12/2014 Active zolpidem (AMBIEN) 5 mg tablet take /-8 Tablet by oral route every day at [...] Department Care Team Description 04/23/2024 1:00 PM DETECTIVE CAPTAIN Procedure visit [facility] Ot[facility] [address] [place] [address] [place] [address] Coco Peterson Au.D. BPPV (benign paroxysmal positional vertigo), bilateral (Primary Dx) 04/19/2024 10:00 AM DETECTIVE CAPTAIN Procedure visit [facility] Otolaryngology [address] [place] [address] [address] [place] [address] [place] [address] Coco Pteerson Au.D. Dizziness from Last 3 Months Immunizations [...] HISTORY Dr. 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 Oreilly/Cardiology REDUCTION MAMMAPLASTY [...] on file Legal Sex Female 11:29 PM DETECTIVE CAPTAIN Gender Identity Not on file Sexual Orientation [...] for her next mammogram. Electronically signed by: Falguni Washington 07/06/2023 9:41 PM CDT EXAMINATION: SCREENING MAMMOGRAM [...] female with given history of postmenopausal state. Automobile Service Advisor/Model: [employer] Discovery SL (S/N [id number]) CLINICAL INFORMATION: Current height: 66 inches Maximum [...] by Andi Hunter M.D. MD: Report ID: [id number] Reading Location: [place] [address] Procedure Note Andi Hunter MD - 11/03/2020 EXAM DESCRIPTION: DEXA AXIAL SKELETON BONE DENSITY 1 OR MORE SITES REASON FOR STUDY: 70 year old female with given history ofpostmenopausal state. Automobile Service Advisor/Model: Amuso SL (S/N [id number]) CLINICAL INFORMATION: Current height: 66 inches Maximum [...] by Andi Hunter M.D. MD: Report ID: [id number] Reading Location: [place] [address] Yrn Chen MD IMG DXA PROCEDURES Final Resu lt * COLONOSCOPY IMAGES (11/08/2014) Anatomical Region Laterality Modality Other Narrative 11/08/2014 Ordered by an unspecified provider. Historical Provider GI PROCEDURE ORDERABLES F inal Result from Last 3 Months or Most Recently Relevant to Health Maintenance Insurance MEDICARE [facility] MCR SUPPLEMENT [place] DODD [id number] MEDICARE FORMERLY [facility] SUPPLEMENT [place] DODD [id number] MEDICARE SOLUTIONS FORMERLY [facility] SUPPLEMENT MEDICARE SOLUTIONS Care Teams [employer] Administrator Relationship Specialty Start Date End Date Sheri Holden MD [address] [place] [address] PCP - General 07/09/16
== END 2024-05-22 10:20 | disposition home or self-care (01) ==
PROVIDERS: PCP Internal Medicine; Visit Provider Physician Assistant Surgical
DX: Z96.612 Presence of left artificial shoulder joint (principal)
CPT/HCPCS: 73030

== ENCOUNTER 2024-06-20 09:32 | Outpatient (CLI) | payer MEDICARE, SELFPAY ==
--- NOTE | ~2024-06-20 | XR_ITS ---
HISTORY: Z96.612 Presence of left artificial shoulder joint X 7 WEEKS COMPARISON: 05/22/2024 and dating back to 09/29/2023 TECHNIQUE: 3 views of the left shoulder were performed FINDINGS: Diffuse bony demineralization. Reverse left shoulder arthroplasty in near anatomic alignment. No periprosthetic fracture is appreciated. Narrowing of the acromioclavicular joint space is present with osteophyte formation. No periprosthetic lucency to suggest loosening or infection. IMPRESSION: Reverse shoulder arthroplasty in near anatomic alignment, without additional abnormality, as detailed above. Reviewed, dictated and finalized at location A. IMPRESSION: Reverse shoulder arthroplasty in near anatomic alignment, without additional ab normality, as detailed above.
--- OUTSIDE RECORDS SUMMARY | 2024-06-20 10:17 | XMS_ITS ---
Author Organization [facility] [[email or web address]] Address [address] [place] [address] Phone Care Team Providers Care Quiller Machine Fixer Name Role Phone EDI MAC, ANICETO [place] Unavailable [phone] ROCK ALLAN MD Primary Care Provider [phone] Problems Includes: Active, inactive, and resolved Problems All Visits Onset Date Resolved Date Provider Condition S tatus ESOPHAGEAL REFLUX 07/12/2012 ANICETO DALEY MD Active Last Documented On 3 9:35AM ; [facility] HYPERLIPIDEMIA NEC/NOS 07/12/2012 ANICETO Farmer MD Active Last Documented On 3 9:35AM ; [facility] HYPERTENSION NOS 07/12/2012 ANICETO DALEY MD A ctive Last Documented On 3 9:35AM ; [facility] [[email or web address]] Plan of Treatment Findings Encounter Date She will let us know if she has other problems in the meantime WELL WOMAN - ESTABLISHED PT with ANICETO DALEY MD 07/08/2023 Last Documented On 4 5:02PM ; [facility] Ordered follow-up visit 2 ye ar or as needed WELL WOMAN - ESTABLISHED PT with ANICETO DALEY MD 07/08/2023 Last Documented On 4 5:02PM ; [facility] She will let us know if she has other problems in the meantime WELL WOMAN - ESTABLISHED PT with ANICETO DALEY MD 07/04/2020 Last Documented On 1 1:39PM ; [facility] Ordered follow-up visit 2 ye ars or as needed WELL WOMAN - ESTABLISHED PT with ANICETO DALEY MD 07/04/2020 Last Documented On 1 1:39PM ; [facility] She will let us know if she has other problems in the meantime WELL WOMAN EXAM with ANICETO DALEY MD 08/14/2018 Last Documented On 9 4:16PM ; [facility] Ordered follow-up visit 2 ye ars or as needed WELL WOMAN EXAM with ANICETO DALEY MD 08/14/2018 Last Documented On 9 4:16PM ; [facility] She will let us know if she has other problems in the meantime ANNUAL CONTRACT NEGOTIATION SPECIALIST EXAM with ANICETO DALEY MD 08/12/2017 Last Documented On 8 3:36PM ; [facility] Ordered follow-up visit 1 ye ar or as needed ANNUAL CONTRACT NEGOTIATION SPECIALIST EXAM with ANICETO DALEY MD 08/12/2017 Last Documented On 8 3:36PM ; [facility] She will let us know if she has other problems in the meantime ANNUAL CONTRACT NEGOTIATION SPECIALIST EXAM with ANICETO DALEY MD 07/28/2016 Last Documented On 7 1:19PM ; [facility] Ordered follow-up visit 1 ye ar or as needed ANNUAL CONTRACT NEGOTIATION SPECIALIST EXAM with ANICETO DALEY MD 07/28/2016 Last Documented On 7 1:19PM ; [facility] She will let us know if she has other problems in the meantime ANNUAL CONTRACT NEGOTIATION SPECIALIST EXAM with ANICETO DALEY MD 07/25/2015 Last Documented On 6 11:08AM ; [facility] Ordered follow-up visit 1 ye ar or as needed ANNUAL CONTRACT NEGOTIATION SPECIALIST EXAM with ANICETO DALEY MD 07/25/2015 Last Documented On 6 11:08AM ; [facility] She will let us know if she has other problems in the meantime ANNUAL CONTRACT NEGOTIATION SPECIALIST EXAM with ANICETO DALEY MD 07/22/2014 Last Documented On 5 2:37PM ; [facility] Ordered follow-up visit 1 ye ar or as needed ANNUAL CONTRACT NEGOTIATION SPECIALIST EXAM with AINCETO DALEY MD 07/22/2014 Last Documented On 5 2:37PM ; [facility] She will let us know if she has other problems in the meantime ANNUAL CONTRACT NEGOTIATION SPECIALIST EXAM with ANCIETO DALEY MD 07/17/2013 Last Documented On 4 9:47AM ; [facility] [[email or web address]] Ordered follow-up visit 1 ye ar or as needed ANNUAL CONTRACT NEGOTIATION SPECIALIST EXAM with ANICETO DALEY MD 07/17/2013 Last Documented On 4 9:47AM ; [facility] She will let us know if she has other problems in the meantime ANNUAL CONTRACT NEGOTIATION SPECIALIST EXAM with ANICETO DALEY MD 07/12/2012 Last Documented On 3 10:01AM ; [facility] [[email or web address]] Ordered follow-up visit 1 ye ar or as needed ANNUAL CONTRACT NEGOTIATION SPECIALIST EXAM with ANICETO DALEY MD 07/12/2012 Last Documented On 3 10:01AM ; [facility] She'll have a copy of her ma m forwarded as above NEW INFORMATION TECH EXAM with ANICETO DALEY MD 04/06/2011 Last Documented On 2 4:58PM ; [facility] Ordered follow-up visit 1 ye ar or as needed NEW INFORMATION TECH EXAM with ANICETO DALEY MD 04/06/2011 Last Documented On 2 4:58PM ; [facility] Future Appointments Date Time Location Provi harris WELL WOMAN - ESTABLISHED PT 07/09/2025 9:00AM [facility] ANICETO DALEY MD Last Documented On 4 10:08AM ; [facility] Instructions to patient Instructions for patient : B reast Self Exam discussed Last Documented On 4 9:50AM ; [facility] Instructions for patient : B reast Self Exam discussed Last Documented On 1 1:20PM ; [facility] Instructions for patient : B reast Self Exam discussed Last Documented On 9 1:57PM ; [facility] Instructions for patient : B reast Self Exam discussed Last Documented On 8 3:20PM ; [facility] Instructions for patient : B reast Self Exam discussed Last Documented On 7 1:00PM ; [facility] Instructions for patient : B reast Self Exam discussed Last Documented On 6 10:49AM ; [facility] Instructions for patient : B reast Self Exam discussed Last Documented On 5 2:17PM ; [facility] [[email or web address]] Instructions for patient : B reast Self Exam discussed Last Documented On 4 9:22AM ; [facility] Instructions for patient : B reast Self Exam discussed Last Documented On 3 9:45AM ; [facility] Instructions for patient : B reast Self Exam discussed Last Documented On 2 4:45PM ; [facility] [[email or web address]] Education and Decision Aids were provided during visit for: STD screening offered and de clined Last Documented On 4 9:50AM ; [facility] Bone Mineral Density Screeni ng guidelines reviewed : will rpt in 2025 (5 years apart) Last Documented On 4 9:53AM ; [facility] Patient Education: Daily bonnie cium and vitamin D Last Documented On 4 9:50AM ; [facility] Patient Education: weight be aring exercise Last Documented On 4 9:50AM ; [facility] Colonoscopy screening guidel elisa discussed Last Documented On 4 9:50AM ; [facility] STD screening offered and de clined Last Documented On 1 1:20PM ; [facility] Bone Mineral Density Screeni ng guidelines reviewed Last Documented On 1 1:20PM ; [facility] [[email or web address]] Patient Education: Daily bonnie cium and vitamin D Last Documented On 1 1:20PM ; [facility] [[email or web address]] Patient Education: weight be aring exercise Last Documented On 1 1:20PM ; [facility] Colonoscopy screening guidel elisa discussed Last Documented On 1 1:20PM ; [facility] STD screening offered and de clined Last Documented On 9 1:57PM ; [facility] Bone Mineral Density Screeni ng guidelines reviewed Last Documented On 9 1:57PM ; [facility] [[email or web address]] Patient Education: Daily bonnie cium and vitamin D Last Documented On 9 1:57PM ; [facility] [[email or web address]] Patient Education: weight be aring exercise Last Documented On 9 1:57PM ; [facility] Colonoscopy screening guidel elisa discussed Last Documented On 9 1:57PM ; [facility] STD screening offered and de clined Last Documented On 8 3:20PM ; [facility] Bone Mineral Density Screeni ng guidelines reviewed Last Documented On 8 3:20PM ; [facility] [[email or web address]] Patient Education: Daily bonnie cium and vitamin D Last Documented On 8 3:20PM ; [facility] [[email or web address]] Patient Education: weight be aring exercise Last Documented On 8 3:20PM ; [facility] Colonoscopy screening guidel elisa discussed Last Documented On 8 3:20PM ; [facility] STD screening offered and de clined Last Documented On 7 1:00PM ; [facility] Bone Mineral Density Screeni ng guidelines reviewed Last Documented On 7 1:00PM ; [facility] Patient Education: Daily bonnie cium and vitamin D Last Documented On 7 1:00PM ; [facility] [[email or web address]] Patient Education: weight be aring exercise Last Documented On 7 1:00PM ; [facility] Colonoscopy screening guidel elisa discussed Last Documented On 7 1:00PM ; [facility] STD screening offered and de clined Last Documented On 6 10:49AM ; [facility] Bone Mineral Density Screeni ng guidelines reviewed Last Documented On 6 10:49AM ; [facility] [[email or web address]] Patient Education: Daily bonnie cium and vitamin D Last Documented On 6 10:49AM ; [facility] [[email or web address]] Patient Education: weight be aring exercise Last Documented On 6 10:49AM ; [facility] Colonoscopy screening guidel elisa discussed Last Documented On 6 10:49AM ; [facility] STD screening offered and de clined Last Documented On 5 2:17PM ; [facility] Bone Mineral Density Screeni ng guidelines reviewed Last Documented On 5 2:17PM ; [facility] Patient Education: Daily bonnie cium and vitamin D Last Documented On 5 2:17PM ; [facility] [[email or web address]] Patient Education: weight be aring exercise Last Documented On 5 2:17PM ; [facility] Colonoscopy screening guidel elisa discussed Last Documented On 5 2:17PM ; [facility] STD screening offered and de clined Last Documented On 4 9:22AM ; [facility] Bone Mineral Density Screeni ng guidelines reviewed Last Documented On 4 9:22AM ; [facility] Patient Education: Daily bonnie cium and vitamin D Last Documented On 4 9:22AM ; [facility] [[email or web address]] Patient Education: weight be aring exercise Last Documented On 4 9:22AM ; [facility] Colonoscopy screening guidel elisa discussed Last Documented On 4 9:22AM ; [facility] STD screening offered and de clined Last Documented On 3 9:45AM ; [facility] Bone Mineral Density Screeni ng guidelines reviewed Last Documented On 3 9:45AM ; [facility] Patient Education: Daily bonnie cium and vitamin D Last Documented On 3 9:45AM ; [facility] [[email or web address]] Patient Education: weight be aring exercise Last Documented On 3 9:45AM ; [facility] Colonoscopy screening guidel elisa discussed Last Documented On 3 9:45AM ; [facility] Bone Mineral Density Screeni ng guidelines reviewed Last Documented On 2 4:45PM ; [facility] Patient Education: Daily bonnie cium and vitamin D Last Documented On 2 4:45PM ; [facility] Patient Education: weight be aring exercise Last Documented On 2 4:45PM ; [facility] Colonoscopy screening guidel elisa discussed Last Documented On 2 4:45PM ; [facility] Assessments Includes: Assessments for all patient encounters Findings Encounter Date Fibrocystic disease of breast WELL WOMAN - ESTABLISHED PT with ANICETO DALEY MD 07/08/2023 Last Documented On 4 5:02PM ; [facility] NORMAL FEMALE EXAM WELL WOMAN - ESTABLISHED PT w chino DALEY MD 07/08/2023 Last Documented On 4 5:02PM ; [facility] Screening Malig. Neoplasm Rectum WELL WO MAN - ESTABLISHED PT with ANICETO DALEY MD 07/08/2023 Last Documented On 4 5:02PM ; [facility] Fibrocystic disease of breast WELL WOMAN - ESTABLISHED PT with ANICETO DALEY MD 07/04/2020 Last Documented On 1 1:39PM ; [facility] NORMAL FEMALE EXAM WELL WOMAN - ESTABLISHED PT w ith ANICETO DALEY MD 07/04/2020 Last Documented On 1 1:39PM ; [facility] Screening Malig. Neoplasm Rectum WELL WO MAN - ESTABLISHED PT with ANICETO DALEY MD 07/04/2020 Last Documented On 1 1:39PM ; [facility] Fibrocystic disease of breast WELL WOMAN EXAM wi th ANICETO DALEY MD 08/14/2018 Last Documented On 9 4:16PM ; [facility] [[email or web address]] NORMAL FEMALE EXAM WELL WOMAN EXAM with ANICETO RICHARD MD 08/14/2018 Last Documented On 9 4:16PM ; [facility] Screening Malig. Neoplasm Rectum WELL WOMAN EXAM with ANICETO DALEY MD 08/14/2018 Last Documented On 9 4:16PM ; [facility] Fibrocystic disease of breast ANNUAL CONTRACT NEGOTIATION SPECIALIST EXAM wi th ANICETO DALEY MD 08/12/2017 Last Documented On 8 3:36PM ; [facility] [[email or web address]] NORMAL FEMALE EXAM ANNUAL CONTRACT NEGOTIATION SPECIALIST EXAM with ANICETO RICHARD MD 08/12/2017 Last Documented On 8 3:36PM ; [facility] Screening Malig. Neoplasm Rectum ANNUAL CONTRACT NEGOTIATION SPECIALIST EXAM with ANICETO DALEY MD 08/12/2017 Last Documented On 8 3:36PM ; [facility] Fibrocystic disease of breast ANNUAL CONTRACT NEGOTIATION SPECIALIST EXAM wi th ANICETO DALEY MD 07/28/2016 Last Documented On 7 1:19PM ; [facility] [[email or web address]] NORMAL FEMALE EXAM ANNUAL CONTRACT NEGOTIATION SPECIALIST EXAM with ANICETO RICHARD MD 07/28/2016 Last Documented On 7 1:19PM ; [facility] Screening Malig. Neoplasm Rectum ANNUAL CONTRACT NEGOTIATION SPECIALIST EXAM with ANICETO DALEY MD 07/28/2016 Last Documented On 7 1:19PM ; [facility] Fibrocystic disease of breast ANNUAL CONTRACT NEGOTIATION SPECIALIST EXAM wi th ANICETO DALEY MD 07/25/2015 Last Documented On 6 11:08AM ; [facility] NORMAL FEMALE EXAM ANNUAL CONTRACT NEGOTIATION SPECIALIST EXAM with ANICETO RICHARD MD 07/25/2015 Last Documented On 6 11:08AM ; [facility] Screening Malig. Neoplasm Rectum ANNUAL CONTRACT NEGOTIATION SPECIALIST EXAM with ANICETO DALEY MD 07/25/2015 Last Documented On 6 11:08AM ; [facility] Fibrocystic disease of breast ANNUAL CONTRACT NEGOTIATION SPECIALIST EXAM wi th ANICETO DALEY MD 07/22/2014 Last Documented On 5 2:37PM ; [facility] [[email or web address]] NORMAL FEMALE EXAM ANNUAL CONTRACT NEGOTIATION SPECIALIST EXAM with ANICETO RICHARD MD 07/22/2014 Last Documented On 5 2:37PM ; [facility] Screening Malig. Neoplasm Rectum ANNUAL CONTRACT NEGOTIATION SPECIALIST EXAM with ANICETO DALEY MD 07/22/2014 Last Documented On 5 2:37PM ; [facility] Breast fibrocystic disease ANNUAL CONTRACT NEGOTIATION SPECIALIST EXAM with ANICETO DALEY MD 07/17/2013 Last Documented On 4 9:47AM ; [facility] NORMAL FEMALE EXAM ANNUAL CONTRACT NEGOTIATION SPECIALIST EXAM with ANICETO RICHARD MD 07/17/2013 Last Documented On 4 9:47AM ; [facility] Screening Malig. Neoplasm Rectum ANNUAL CONTRACT NEGOTIATION SPECIALIST EXAM with ANICETO DALEY MD 07/17/2013 Last Documented On 4 9:47AM ; [facility] Breast fibrocystic disease ANNUAL CONTRACT NEGOTIATION SPECIALIST EXAM with ANICETO DALEY MD 07/12/2012 Last Documented On 3 10:01AM ; [facility] [[email or web address]] NORMAL FEMALE EXAM ANNUAL CONTRACT NEGOTIATION SPECIALIST EXAM with ANICETO RICHARD MD 07/12/2012 Last Documented On 3 10:01AM ; [facility] Screening Malig. Neoplasm Rectum ANNUAL CONTRACT NEGOTIATION SPECIALIST EXAM with ANICETO DALEY MD 07/12/2012 Last Documented On 3 10:01AM ; [facility] Breast fibrocystic disease NEW INFORMATION TECH EXAM with ANICETO DALEY MD 04/06/2011 Last Documented On 2 4:58PM ; [facility] NORMAL FEMALE EXAM NEW INFORMATION TECH EXAM with ANICETO CHRISTINE MD 04/06/2011 Last Documented On 2 4:58PM ; [facility] Screening Malig. Neoplasm Rectum NEW INFORMATION TECH EXAM wi th ANICETO DALEY MD 04/06/2011 Last Documented On 2 4:58PM ; [facility] Instructions Includes: Instructions for all patient encounters Instructions to patient Instructions for patient : B reast Self Exam discussed Last Documented On 4 9:50AM ; [facility] Instructions for patient : B reast Self Exam discussed Last Documented On 1 1:20PM ; [facility] Instructions for patient : B reast Self Exam discussed Last Documented On 9 1:57PM ; [facility] Instructions for patient : B reast Self Exam discussed Last Documented On 8 3:20PM ; [facility] Instructions for patient : B reast Self Exam discussed Last Documented On 7 1:00PM ; [facility] Instructions for patient : B reast Self Exam discussed Last Documented On 6 10:49AM ; [facility] Instructions for patient : B reast Self Exam discussed Last Documented On 5 2:17PM ; [facility] Instructions for patient : B reast Self Exam discussed Last Documented On 4 9:22AM ; [facility] Instructions for patient : B reast Self Exam discussed Last Documented On 3 9:45AM ; [facility] Instructions for patient : B reast Self Exam discussed Last Documented On 2 4:45PM ; [facility] [[email or web address] Education and Decision Aids were provided during visit for: STD screening offered and de clined Last Documented On 4 9:50AM ; [facility] Bone Mineral Density Screeni ng guidelines reviewed : will rpt in 2025 (5 years apart) Last Documented On 4 9:53AM ; [facility] Patient Education: Daily bonnie cium and vitamin D Last Documented On 4 9:50AM ; [facility] Patient Education: weight be aring exercise Last Documented On 4 9:50AM ; [facility] Colonoscopy screening guidel elisa discussed Last Documented On 4 9:50AM ; [facility] STD screening offered and de clined Last Documented On 1 1:20PM ; [facility] Bone Mineral Density Screeni ng guidelines reviewed Last Documented On 1 1:20PM ; [facility] Patient Education: Daily bonnie cium and vitamin D Last Documented On 1 1:20PM ; [facility] [[email or web address]] Patient Education: weight be aring exercise Last Documented On 1 1:20PM ; [facility] Colonoscopy screening guidel elisa discussed Last Documented On 1 1:20PM ; [facility] STD screening offered and de clined Last Documented On 9 1:57PM ; [facility] Bone Mineral Density Screeni ng guidelines reviewed Last Documented On 9 1:57PM ; [facility] Patient Education: Daily bonnie cium and vitamin D Last Documented On 9 1:57PM ; [facility] [[email or web address]] Patient Education: weight be aring exercise Last Documented On 9 1:57PM ; [facility] Colonoscopy screening guidel elisa discussed Last Documented On 9 1:57PM ; [facility] STD screening offered and de clined Last Documented On 8 3:20PM ; [facility] Bone Mineral Density Screeni ng guidelines reviewed Last Documented On 8 3:20PM ; [facility] [[email or web address] Patient Education: Daily bonnie cium and vitamin D Last Documented On 8 3:20PM ; [facility] [[email or web address]] Patient Education: weight be aring exercise Last Documented On 8 3:20PM ; [facility] Colonoscopy screening guidel elisa discussed Last Documented On 8 3:20PM ; [facility] STD screening offered and de clined Last Documented On 7 1:00PM ; [facility] Bone Mineral Density Screeni ng guidelines reviewed Last Documented On 7 1:00PM ; [facility] [[email or web address] Patient Education: Daily bonnie cium and vitamin D Last Documented On 7 1:00PM ; [facility] Patient Education: weight be aring exercise Last Documented On 7 1:00PM ; [facility] Colonoscopy screening guidel elisa discussed Last Documented On 7 1:00PM ; [facility] STD screening offered and de clined Last Documented On 6 10:49AM ; [facility] Bone Mineral Density Screeni ng guidelines reviewed Last Documented On 6 10:49AM ; [facility] [[email or web address]] Patient Education: Daily bonnie cium and vitamin D Last Documented On 6 10:49AM ; [facility] [[email or web address] Patient Education: weight be aring exercise Last Documented On 6 10:49AM ; [facility] Colonoscopy screening guidel elisa discussed Last Documented On 6 10:49AM ; [facility] STD screening offered and de clined Last Documented On 5 2:17PM ; [facility] Bone Mineral Density Screeni ng guidelines reviewed Last Documented On 5 2:17PM ; [facility] [[email or web address] Patient Education: Daily bonnie cium and vitamin D Last Documented On 5 2:17PM ; [facility] [[email or web address] Patient Education: weight be aring exercise Last Documented On 5 2:17PM ; [facility] Colonoscopy screening guidel elisa discussed Last Documented On 5 2:17PM ; [facility] STD screening offered and de clined Last Documented On 4 9:22AM ; [facility] Bone Mineral Density Screeni ng guidelines reviewed Last Documented On 4 9:22AM ; [facility] Patient Education: Daily bonnie cium and vitamin D Last Documented On 4 9:22AM ; [facility] [[email or web address] Patient Education: weight be aring exercise Last Documented On 4 9:22AM ; [facility] Colonoscopy screening guidel elisa discussed Last Documented On 4 9:22AM ; [facility] STD screening offered and de clined Last Documented On 3 9:45AM ; [facility] Bone Mineral Density Screeni ng guidelines reviewed Last Documented On 3 9:45AM ; [facility] Patient Education: Daily bonnie cium and vitamin D Last Documented On 3 9:45AM ; [facility] [[email or web address] Patient Education: weight be aring exercise Last Documented On 3 9:45AM ; [facility] Colonoscopy screening guidel elisa discussed Last Documented On 3 9:45AM ; [facility] Bone Mineral Density Screeni ng guidelines reviewed Last Documented On 2 4:45PM ; [facility] Patient Education: Daily bonnie cium and vitamin D Last Documented On 2 4:45PM ; [facility] [[email or web address]] Patient Education: weight be aring exercise Last Documented On 2 4:45PM ; [facility] Colonoscopy screening guidel elisa discussed Last Documented On 2 4:45PM ; [facility] Medical Equipment - Implanted Devices Includes: Current and historical Devices No Medical Equipment Recorded Medications Includes: Current and historical Medications Current Medications (continue as prescribed) Loratadine 10 MG Oral Tablet 07/08/2023 Provider: Diagnosis: Last Documented On 4 9:25AM By GIGI XIONG ; [facility] Zolpidem Tartrate 5 MG Oral Tablet 11/05/2022 Provid er: ROCK ALLAN MD Diagnosis: prn Last Documented On 4 9:25AM By GIGI XIONG ; [facility] Crestor 40 MG Oral Tablet 07/04/2020 Provider: Diagnosis: Last Documented On 1 1:01PM By GIGI XIONG ; [facility] Lisinopril 5 MG OR TABS 07/12/2012 Provider: Diagnosis: Last Documented On 3 9:37AM By ЮЛИЯ FAY MA ; [facility] TH Vitamin B12 100 MCG OR TABS 07/12/2012 Provider: Diagnosis: Last Documented On 3 9:37AM By ЮЛИЯ FAY MA ; [facility] CVS Vitamin C 250 MG OR TABS 07/12/2012 Provider: Diagnosis: Last Documented On 3 9:38AM By ЮЛИЯ FAY MA ; [facility] Adult Aspirin EC Low Strength 81 MG OR TBEC 04/06/2011 Provider: Diagnosis: Last Documented On 04/06/2011 2:54PM By MG MCNEAL LPN ; [facility] Fish Oil 1200 MG OR CAPS 04/06/2011 Provider: Diagnosis: Last Documented On 04/06/2011 2:55PM By MG MCNEAL LPN ; [facility] Daily Value Multivitamin OR TABS 04/06/2011 Provider : Diagnosis: Last Documented On 04/06/2011 2:57PM By MG MCNEAL LPN ; [facility] Calcium 600+D 600-400 MG-UNIT OR TABS 04/06/2011 Pro vider: Diagnosis: Last Documented On 04/06/2011 2:57PM By MG MCNEAL LPN ; [facility] Metoprolol Succinate ER 100 MG OR TB24 04/06/2011 Pr ovider: Diagnosis: BID Last Documented On 04/06/2011 2:53PM By MG MCNEAL LPN ; [facility] Past Medications on file EQL Vitamin D3 25 MCG (1000 UT) OR TABS 07/12/2012 - 0 07/08/2023 Provider: Diagnosis: Last Documented On 4 9:24AM By GIGI XIONG ; [facility] Crestor 20 MG OR TABS 04/06/2011 - 07/04/2020 Provider : Diagnosis: Last Documented On 1 1:01PM By GIGI XIONG ; [facility] Ambien 10 MG OR TABS 04/06/2011 - 07/25/2015 Provider: Diagnosis: Last Documented On 6 10:38AM By GIGI XIONG ; [facility] Zolpidem Tartrate 10 MG OR TABS 04/06/2011 - 1 Provider: Diagnosis: Last Documented On 04/06/2011 2:54PM By MG MCNEAL LPN ; [facility] Zolpidem Tartrate ER 12.5 MG OR TBCR 04/06/2011 - 040 06/2012 Provider: Diagnosis: Last Documented On 3 9:36AM By ЮЛИЯ FAY MA ; [facility] Calcium 600 MG OR TABS 04/06/2011 - 04/06/2011 Provide r: Diagnosis: PLUS D Last Documented On 04/06/2011 2:57PM By MG MCNEAL LPN ; [facility] Vicodin 5-500 MG OR TABS 04/06/2011 - 07/12/2012 Provi harris: Diagnosis: CUT INTO 04/14 AND 04/14 TAKEN BID FOR PT Last Documented On 3 9:37AM By ЮЛИЯ FAY MA ; [facility] [[email or web address]] Medications Administered Includes: Administered Medications in patient's chart No Administered Medications Recorded Vital Signs Includes: Vital Signs from 06/21/2023 through 06/20/2024 Vital Name 07/08/2023 09:18A Blood Pressure Sitting (mmHg) 140/86 Temp-Oral (F) 98.3 Height (in) 65 Weight (lb) 179.6 Body Mass Index 29.9 Body Surface Area 1.9 Last Documented: On 07/08/2023 9:23AM ; [facility] [[email or web address]] Results Includes: Results from 06/21/2023 through 06/20/2024 FOBT-FECAL OCCULT BLOOD TEST [facility] Ordered by ANICETO DALEY MD on 07/08/19 24 Collected: 07/08/2023 Reported: 07/08/19 24 10:46 Last Documented On 4 10:47AM ; [facility] All test results are final unless otherw ise noted. OCCULT BLOOD: negative (NEG.) N (Normal) Last Documented On 4 10:47AM ; [facility] INT. QC ACCEPTABLE? yes N (Normal) Last Documented On 4 10:47AM ; [facility] LOT # & EXP. DATE Lot#[id number] Exp: 08/08/25 N (Normal) Last Documented On 4 10:47AM ; [facility] History of Present Illness History of Present Illness not supported for this document type No History of Present Illness Recorded Social History Description Last Updated Social history changed 11/2013 ~ Also retired 201307/08/2023 Last Documented On 4 5:02PM ; [facility] Marital history and now has new partner since 01/202107/08/2023 Last Documented On 4 5:02PM ; [facility] Sexually active with 1 partners in the l ast year 07/08/2023 Last Documented On 4 5:02PM ; [facility] Exercising regularly 07/28/2016 Last Documented On 7 1:19PM ; [facility] 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; 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 07/25/2015 Last Documented On 6 11:08AM ; [facility] Smoking status : Never smoker 07/22/2014 Last Documented On 5 2:37PM ; [facility] Not sexually active 07/17/2013 Last Documented On 4 9:47AM ; [facility] Not using drugs 07/17/2013 Last Documented On 4 9:47AM ; [facility] Alcohol use 4 TIMES A MONTH 04/06/2011 Last Documented On 2 4:58PM ; [facility] Non-smoker 04/06/2011 Last Documented On 2 4:58PM ; [facility] Procedures and Surgical History Includes: Procedures from 06/21/2023 through 06/20/2024 Procedures Code Diagnosis Performing Provider Service Location Service Date FIT TEST-SCREENING FOR FECAL OCCULT BLOOD (CLIA WAIVED) 75885 Encounter for screening for malignant neoplasm of colon ANICETO DALEY MD [facility] 07/08/2023 Last Documented On 4 9:24AM ; [facility] Surgical History Last Updated Surgical / procedural histor y LEFT ROTATOR CUFF SURGERY 11/[address] Plasencia at [facility] [place] ~BREAST REDUCTION SURGERY APR 2011-- bilateral with Dr Mitchell ~Rt joint replacement of big toe-07/17/2013 Last Documented On 4 9:47AM ; [facility] History of tubal ligation 07/12/2012 Last Documented On 3 10:01AM ; [facility] Medical History Includes: Medical History in patient's chart Description Last Updated Aborta 2 elective 07/08/2023 Last Documented On 4 5:02PM ; [facility] section x 1 and then 2 vaginal deliveries () 07/08/2023 Last Documented On 4 5:02PM ; [facility] 5 07/08/2023 Last Documented On 4 5:02PM ; [facility] Sexually active 07/08/2023 Last Documented On 4 5:02PM ; [facility] Surgical / procedural histor y LEFT ROTATOR CUFF SURGERY 11/[address] Plasencia at [facility] [place] ~BREAST REDUCTION SURGERY APR 2011-- bilateral with Dr Mitchell ~Rt joint replacement of big toe- ~Reverse shoulder, Right, from a fall 12/202207/08/2023 Last Documented On 4 5:02PM ; [facility] Last mammogram date: 07/05/2023 [facility] 07/07 Last Documented On 4 5:02PM ; [facility] Result: normal 07/08/2023 Last Documented On 4 5:02PM ; [facility] Result: normal [facility] 07/08/2023 Last Documented On 4 5:02PM ; [facility] History of diaignostic fiberoptic colono scopy 11/08/[address] [facility] [address] Smith 07/08/2023 Last Documented On 4 5:02PM ; [facility] History of screening mammogram was perfo rmed 07/05/2023 [facility] 07/08/2023 Last Documented On 4 5:02PM ; [facility] PRIMARY CARE PROVIDER : is Dr Loretta Mauricio 08/12/2017 Last Documented On 8 3:36PM ; [facility] A colonoscopy was performed Dr Puente h November 2014 08/12/2017 Last Documented On 8 3:36PM ; [facility] Last pap smear date 07/28/2016 08/12/2017 Last Documented On 8 3:36PM ; [facility] Patient recently had a dexa scan 08/01/2014 at [facility] with T-scores of 1.4 , 0.0, and 1.7; 07/25/2015 Last Documented On 6 11:08AM ; [facility] Herpes zoster (shingles) --- on her left face---June 2013 07/17/2013 Last Documented On 4 9:47AM ; [facility] Anxiety 07/17/2013 Last Documented On 4 9:47AM ; [facility] History of prior myocardial infarction they think it was a heart attack at age 52 07/17/2013 Last Documented On 4 9:47AM ; [facility] Para 3 07/17/2013 Last Documented On 4 9:47AM ; [facility] History of benign essential hypertension 07/12/2012 Last Documented On 3 10:01AM ; [facility] History of chronic reflux esophagitis Last Documented On 3 10:01AM ; [facility] History of hyperlipidemia 07/12/2012 Last Documented On 3 10:01AM ; [facility] Status post tubal ligation 199507/13/19 Last Documented On 3 10:01AM ; [facility] EMBX 12/23/04 04/06/2011 Last Documented On 2 4:58PM ; [facility] LMP: 04/06/2003 04/06/2011 Last Documented On 2 4:58PM ; [facility] Family History Includes: Family History in patient's chart Description Last Updated Fraternal history of family history unchanged A BROTHER PASSED OF LUNG CA at age 42 07/08/2023 Last Documented On 4 5:02PM ; [facility] Family history of cancer neice- pancreat ic cancer 07/08/2023 Last Documented On 4 5:02PM ; [facility] Family history of systemic hypertension PT 07/08/2023 Last Documented On 4 5:02PM ; [facility] Fraternal history of heart disease 07/07 Last Documented On 4 5:02PM ; [facility] Fraternal history of systemic hypertensi on 07/08/2023 Last Documented On 4 5:02PM ; [facility] Maternal history of heart disease 2023 Last Documented On 4 5:02PM ; [facility] Maternal history of systemic hypertensio n MGF 07/08/2023 Last Documented On 4 5:02PM ; [facility] Family history of Alzheimer disease thinks 3rd sister has it; being treated for it 07/08/2023 Last Documented On 4 5:02PM ; [facility] Sororal history of breast cancer 2nd sis ter 07/08/2023 Last Documented On 4 5:02PM ; [facility] Sororal history of Alzheimer disease older sister 06/2022 from alzheimers at 79 yo 07/08/2023 Last Documented On 4 5:02PM ; [facility] Sororal history of uterine c ancer SISTER- endometrial cancer- age 75 (hyst 08/14/2018) ~Different SISTER- endometrial cancer- age 57 and also thyroid papillary carcinoma age 60 08/14/2018 Last Documented On 9 4:16PM ; [facility] Maternal aunt's history of m alignant female breast neoplasm in a maternal aunt in her 60's ~ 08/14/2018 Last Documented On 9 4:16PM ; [facility] Paternal aunt's history of m alignant female breast neoplasm paternal aunt at 68 08/14/2018 Last Documented On 9 4:16PM ; [facility] Sororal history of malignant female breast neoplasm sister 68 is currently under treatment-chem double mastectomy and radiation (both breast)-bracca testing was negative( different sister than the two with endometrial cancer) 08/14/2018 Last Documented On 9 4:16PM ; [facility] Sororal history of diabetes mellitus sis ter 07/25/2015 Last Documented On 6 11:08AM ; [facility] Family history of diabetes mellitus sist er 07/17/2013 Last Documented On 4 9:47AM ; [facility] Family history of malignant female breast neoplasm in a maternal aunt in her 60's and a paternal aunt at 68 ~sister 68 is currently under treatment-chem double mastectomy and radiation (both breast)-bracca testing was negative 07/17/2013 Last Documented On 4 9:47AM ; [facility] Family history of hypercholesterolemia P T. AND FAMILY 04/06/2011 Last Documented On 2 4:58PM ; [facility] Family history unchanged A BROTHER PASSCoby D OF LUNG CA 04/06/2011 Last Documented On 2 4:58PM ; [facility] Heart disease PT. AND FAMILY 04/06/2011 Last Documented On 2 4:58PM ; [facility] Review of Systems Review of Systems not [...] Active Last Documented On 1 1:02PM ; [facility] Encounters Includes: Encounters from 06/21/2023 through 06/20/2024 Encounter Provider Location Date Check-In Time Check-Out Time Diagnosis [facility] - ESTABLISHED PT ANICETO DALEY MD [facility] 07/08/19 24 9:05AM 10:08AM Breast Fibrocystic Disease,Screen ing Malig. Neoplasm Rectum,Normal Female Exam Insurance Includes: Active Insurance Policies Plan Name Member ID Group # Subscriber Relationship Effect baldomero Dates 1 - [facility]/MEDICARE ADV/[employer] [id number] FERNAN[address]Z BROWNE Se lf Clinical Notes Includes: Signed Clinical Notes starting from 04/30/2022 * Progress note Date Encounter Last Documented by 07/08/2023 WE[facility] WOMAN - ESTABLISHED PT Last documented on 07/08/2023; 5:02 PM, ANICETO DALEY MD; [facility] [[email or web address]] Active Problems & Conditions - ESOPHAGEAL REFLUX [...] SURGERY 11/[address] Plasencia at [facility] [place] BREAST REDUCTION SURGERY APR 2011-- bilateral with Dr Mitchell Rt joint replacement of big toe- Reverse shoulder, Right, from a fall 12/2022. Tests: A colonoscopy was performed Dr Smith November 2014 and patient recently had a dexa scan 08/01/2014 at [facility] with T-scores of 1.4 , 0.0, and 1.7; : 5, para 3, aborta 2 elective, and history of the : section x 1 and then 2 vaginal deliveries (). Sexual: Sexually active. Other: Diaignostic fiberoptic colonoscopy 11/08/2014 [facility] Dr Smith. Screening mammogram was performed 07/05/2023 [facility] Diagnoses: Prior myocardial infarction they think it [...] in the last year. 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
--- OUTSIDE RECORDS SUMMARY | 2024-06-20 10:17 | XMS_ITS | Clinical Summary ---
Author Organization [facility] Address [address] [place] [address] Phone Care Team Providers Care Travel Registered Nurse Oncology Name Role Phone EDI MAC, ANICETO [place] Unavailable [phone] ROCK ALLAN MD Primary Care Provider [phone] Reason for Visit and Chief Complaint The Chief Complaint is: WWE and no c/o Problems Includes: Problems addressed during this encounter and other active Problems All Visits Onset Date Resolved Date Provider Condition S tatus ESOPHAGEAL REFLUX 07/12/2012 ANICETO DALEY MD Active Last Documented On 3 9:35AM ; [facility] HYPERLIPIDEMIA NEC/NOS 07/12/2012 ANICETO Farmer MD Active Last Documented On 3 9:35AM ; [facility] HYPERTENSION NOS 07/12/2012 ANICETO DALEY MD A ctive Last Documented On 3 9:35AM ; [facility] Plan of Treatment - Follow-up visit 2 years or as needed - Last Documented On 07/04/2020 1:39PM ; [facility] She will let us know if she has other problems in the meantime. - Last Documented On 07/04/2020 1:39PM ; [facility] Future Appointments Date Time Location Provi harris [facility] - ESTABLISHED PT 07/09/2025 9:00AM [facility] ANICETO DALEY MD Last Documented On 4 10:08AM ; [facility] Instructions to patient Instructions for patient : B reast Self Exam discussed Last Documented On 1 1:20PM ; [facility] Education and Decision Aids were provided during visit for: STD screening offered and de clined Last Documented On 1 1:20PM ; [facility] Bone Mineral Density Screeni ng guidelines reviewed Last Documented On 1 1:20PM ; [facility] Patient Education: Daily bonnie cium and vitamin D Last Documented On 1 1:20PM ; [facility] Patient Education: weight be aring exercise Last Documented On 1 1:20PM ; [facility] Colonoscopy screening guidel elisa discussed Last Documented On 1 1:20PM ; [facility] Assessments Includes: Assessments from this encounter Findings - Fibrocystic disease of breast - Last Documented On 07/04/2020 1:39PM ; [facility] - NORMAL FEMALE EXAM - Last Documented On 07/04/2020 1:39PM ; [facility] - Screening Malig. Neoplasm Rectum - Last Documented On 07/04/2020 1:39PM ; [facility] Instructions Includes: Instructions from this encounter Instructions to patient Instructions for patient : B reast Self Exam discussed Last Documented On 1 1:20PM ; [facility] Education and Decision Aids were provided during visit for: STD screening offered and de clined Last Documented On 1 1:20PM ; [facility] Bone Mineral Density Screeni ng guidelines reviewed Last Documented On 1 1:20PM ; [facility] Patient Education: Daily bonnie cium and vitamin D Last Documented On 1 1:20PM ; [facility] Patient Education: weight be aring exercise Last Documented On 1 1:20PM ; [facility] Colonoscopy screening guidel elisa discussed Last Documented On 1 1:20PM ; [facility] Medical Equipment - Implanted Devices Includes: Current Devices No Medical Equipment Recorded Medications Includes: Medications discussed during this encounter and other current Medications Discontinued / Stopped on this date on 04/06/2011 Crestor 20 MG OR TABS Provider: Diagnosis: Last Documented On 1 1:01PM By GIGI XIONG ; [facility] Current Medications (continue as prescribed) Loratadine 10 MG Oral Tablet 07/08/2023 Provider: Diagnosis: Last Documented On 4 9:25AM By GIGI XIONG ; [facility] Zolpidem Tartrate 5 MG Oral Tablet 11/05/2022 Provid er: ROCK ALLAN MD Diagnosis: prn Last Documented On 4 9:25AM By GIGI XIONG ; [facility] Crestor 40 MG Oral Tablet 07/04/2020 Provider: Diagnosis: Last Documented On 1 1:01PM By GIGI XIONG ; [facility] Lisinopril 5 MG OR TABS 07/12/2012 Provider: Diagnosis: Last Documented On 3 9:37AM By ЮЛИЯ FAY MA ; [facility] TH Vitamin B12 100 MCG OR TABS 07/12/2012 Provider: Diagnosis: Last Documented On 3 9:37AM By ЮЛИЯ FAY MA ; [facility] CVS Vitamin C 250 MG OR TABS 07/12/2012 Provider: Diagnosis: Last Documented On 3 9:38AM By ЮЛИЯ FAY MA ; [facility] Adult Aspirin EC Low Strength 81 MG OR TBEC 04/06/2011 Provider: Diagnosis: Last Documented On 04/06/2011 2:54PM By GM MCNEAL LPN ; [facility] Fish Oil 1200 MG OR CAPS 04/06/2011 Provider: Diagnosis: Last Documented On 04/06/2011 2:55PM By MG MCNEAL LPN ; [facility] Daily Value Multivitamin OR TABS 04/06/2011 Provider : Diagnosis: Last Documented On 04/06/2011 2:57PM By MG MCNEAL LPN ; [facility] Calcium 600+D 600-400 MG-UNIT OR TABS 04/06/2011 Pro vider: Diagnosis: Last Documented On 04/06/2011 2:57PM By MG MCNEAL LPN ; [facility] Metoprolol Succinate ER 100 MG OR TB24 04/06/2011 Pr ovider: Diagnosis: BID Last Documented On 04/06/2011 2:53PM By MG MCNEAL LPN ; [facility] Medications Administered Includes: Administered Medications from this encounter No Administered Medications Recorded Vital Signs Includes: Vital Signs from this encounter Vital Name 07/04/2020 12:56P Blood Pressure Sitting (mmHg) 118/88 Temp-Oral (F) 97.9 Height (in) 65 Weight (lb) 168 Body Mass Index (kg/m2) 28.0 Body Surface Area (m2) 1.8 Last Documented: On 07/04/2020 1:03PM ; [facility] Results Includes: Results discussed [...] retired 201307/08/2023 Last Documented On 12:54PM ; [facility] Marital history 07/08/2023 Last Documented On 12:54PM ; [facility] Sexually active with 0 partners in the l ast year 07/08/2023 Last Documented On 12:54PM ; [facility] Exercising regularly 07/28/2016 Last Documented On 1 12:54PM ; [facility] 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; 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 07/25/2015 Last Documented On 1 12:54PM ; [facility] Smoking status : Never smoker 07/22/2014 Last Documented On 1 12:54PM ; [facility] Not sexually active 07/17/2013 Last Documented On 1 12:54PM ; [facility] Not using drugs 07/17/2013 Last Documented On 1 12:54PM ; [facility] Alcohol use 4 TIMES A MONTH 04/06/2011 Last Documented On 1 12:54PM ; [facility] Procedures and Surgical History Includes: Procedures from this encounter Procedures Code Diagnosis Performing Provider Service L ocation Service Date patient screened for future fall risk 3288F Last Documented On 1 1:05PM ; [facility] Clinical summary provided to patient Last Documented On 1 1:20PM ; [facility] cervical Pap smear 20470 Last Documented On 1 1:20PM ; [facility] history of cervical Pap smear 07/28/2016 58234 Last Documented On 1 12:55PM ; [facility] a colonoscopy was performed 11/2014 Last Documented On 1 12:55PM ; [facility] patient recently had a dexa scan 08/01/14 Last Documented On 1 12:55PM ; [facility] FIT Test-Fecal Occult negative 82948 Last Documented On 1 1:20PM ; [facility] Surgical History Last Updated Surgical history unchanged 07/22/2014 Last Documented On 1 12:54PM ; [facility] Surgical / procedural histor y LEFT ROTATOR CUFF SURGERY 11/[address] Plasencia at [facility] ~BREAST REDUCTION SURGERY APR 2011-- bilateral with Dr Mitchell ~Rt joint replacement of big toe-07/17/2013 Last Documented On 1 12:54PM ; [facility] History of tubal ligation 07/12/2012 Last Documented On 12:54PM ; [facility] Medical History Includes: Medical History addressed during this encounter Description Last Updated Aborta 2 , ectopic 1 07/08/2023 Last Documented On 1 12:54PM ; [facility] 5 07/08/2023 Last Documented On 1 12:54PM ; [facility] Not sexually active 07/08/2023 Last Documented On 1 12:54PM ; [facility] Result: normal 07/08/2023 Last Documented On 1 12:54PM ; [facility] Result: normal 07/08/2023 Last Documented On 1 12:54PM ; [facility] Last mammogram date: 05/12/2020 [facility] 07/04 Last Documented On 1 1:39PM ; [facility] section x2 07/04/2020 Last Documented On 1 1:39PM ; [facility] Vaginal delivery x1 and then 2 vaginal d eliveries 07/04/2020 Last Documented On 1 1:39PM ; [facility] History of screening mammogram was perfo rmed 05/12/2020 07/04/2020 Last Documented On 1 1:39PM ; [facility] PRIMARY CARE PROVIDER : is Dr Loretta Mauricio 08/12/2017 Last Documented On 1 12:54PM ; [facility] A colonoscopy was performed Dr Kwame farmer November 2014 08/12/2017 Last Documented On 1 12:54PM ; [facility] Last pap smear date 07/28/2016 08/12/2017 Last Documented On 1 12:54PM ; [facility] Patient recently had a dexa scan 08/01/2014 at [facility] with T-scores of 1.4 , 0.0, and 1.7; 07/25/2015 Last Documented On 1 12:54PM ; [facility] Herpes zoster (shingles) --- on her left face---June 2013 07/17/2013 Last Documented On 1 12:54PM ; [facility] Anxiety 07/17/2013 Last Documented On 1 12:54PM ; [facility] History of prior myocardial infarction they think it was a heart attack at age 52 07/17/2013 Last Documented On 1 12:54PM ; [facility] Para 3 07/17/2013 Last Documented On 1 12:54PM ; [facility] History of a DEXA of the lateral lumbar spine was performed 06/11/2011 07/17/2013 Last Documented On 1 12:54PM ; [facility] History of benign essential hypertension 07/12/2012 Last Documented On 1 12:54PM ; [facility] History of chronic reflux esophagitis Last Documented On 1 12:54PM ; [facility] History of hyperlipidemia 07/12/2012 Last Documented On 1 12:54PM ; [facility] Status post tubal ligation 199507/13/19 Last Documented On 1 12:54PM ; [facility] No recent change in medical history PT. REPORTS PASSING OUT JUNE 2010 at work, etiology never determined, though there was a question of an upper GI ulcer 04/18/2011 Last Documented On 12:54PM ; [facility] EMBX 12/23/04 04/06/2011 Last Documented On 12:54PM ; [facility] LMP: 04/06/2003 04/06/2011 Last Documented On 12:54PM ; [facility] Family History Includes: Family History addressed during this encounter Description Last Updated Fraternal history of family history unchanged A BROTHER PASSED OF LUNG CA 07/08/2023 Last Documented On 1 12:54PM ; [facility] Family history of hypertension PT. AND F AMILY 07/08/2023 Last Documented On 12:54PM ; [facility] Sororal history of uterine c ancer SISTER- endometrial cancer- age 75 (hyst 08/14/2018) ~Different SISTER- endometrial cancer- age 57 and also thyroid papillary carcinoma age 60 08/14/2018 Last Documented On 12:54PM ; [facility] Maternal aunt's history of m alignant female breast neoplasm in a maternal aunt in her 60's ~ 08/14/2018 Last Documented On 1 12:54PM ; [facility] Paternal aunt's history of m alignant female breast neoplasm paternal aunt at 68 08/14/2018 Last Documented On 1 12:54PM ; [facility] Sororal history of malignant female breast neoplasm sister 68 is currently under treatment-chem double mastectomy and radiation (both breast)-bracca testing was negative( different sister than the two with endometrial cancer) 08/14/2018 Last Documented On 1 12:54PM ; [facility] Sororal history of diabetes mellitus sis ter 07/25/2015 Last Documented On 1 12:54PM ; [facility] Family history of hypercholesterolemia P T. AND FAMILY 04/06/2011 Last Documented On 12:54PM ; [facility] Heart disease PT. AND FAMILY 04/06/2011 Last Documented On 12:54PM ; [facility] Review of Systems Includes: Review of [...] Active Last Documented On 1 1:02PM ; [facility] Encounters Encounter Provider Location Date Check-In Time Check-Out Time Diagnosis WELL WOMAN - ESTABLISHED PT ANICETO DALEY MD [facility] 07/05/19 21 12:56PM 1:41PM Breast Fibrocystic Disease,Screen ing Colleen. Neoplasm Rectum,Normal Female Exam Insurance Includes: Active Insurance Policies Plan Name Member ID Group # Subscriber Relationship Effect baldomero Dates 1 - [facility]/MEDICARE ADV/AARP [id number] FERNANDEZ BRWONE Se lf Clinical Notes Includes: Clinical Notes from this encounter No Clinical Notes Recorded
--- OUTSIDE RECORDS SUMMARY | 2024-06-20 10:17 | XMS_ITS | Clinical Summary ---
Author Organization [facility] Address [address] [place] [address] Phone Care Team Providers Care Guest Service Representative Name Role Phone EDI MAC, ANICETO Madrid Unavailable [phone] ROCK ALLAN MD Primary Care Provider [phone] Reason for Visit and Chief Complaint [Patient Encounter] Problems Includes: Problems addressed during this encounter and other active Problems All Visits Onset Date Resolved Date Provider Condition S tatus ESOPHAGEAL REFLUX 07/12/2012 ANICETO DALEY MD Active Last Documented On 3 9:35AM ; [facility] HYPERLIPIDEMIA NEC/NOS 07/12/2012 ANICETO Farmer MD Active Last Documented On 3 9:35AM ; [facility] HYPERTENSION NOS 07/12/2012 ANICETO DALEY MD A ctive Last Documented On 3 9:35AM ; [facility] Plan of Treatment Future Appointments Date Time Location Provi harris [facility]OM[facility] - ESTABLISHED PT 07/09/2025 9:00AM [facility] ANICETO DALEY MD Last Documented On 4 10:08AM ; [facility] Assessments Includes: Assessments from this encounter No Assessments Recorded Medical Equipment - Implanted Devices Includes: Current Devices No Medical Equipment Recorded Medications Includes: Medications discussed during this encounter and other current Medications Current Medications (continue as prescribed) Loratadine 10 MG Oral Tablet 07/08/2023 Provider: Diagnosis: Last Documented On 4 9:25AM By GIGI XIONG ; [facility] Zolpidem Tartrate 5 MG Oral Tablet 11/05/2022 Provid er: ROCK ALLAN MD Diagnosis: prn Last Documented On 4 9:25AM By GIGI XIONG ; [facility] Crestor 40 MG Oral Tablet 07/04/2020 Provider: Diagnosis: Last Documented On 1 1:01PM By GIGI XIONG ; [facility] Lisinopril 5 MG OR TABS 07/12/2012 Provider: Diagnosis: Last Documented On 3 9:37AM By ЮЛИЯ FAY MA ; [facility] TH Vitamin B12 100 MCG OR TABS 07/12/2012 Provider: Diagnosis: Last Documented On 3 9:37AM By ЮЛИЯ FAY MA ; [facility] Vitamin C 250 MG OR TABS 07/12/2012 Provider: Diagnosis: Last Documented On 3 9:38AM By ЮЛИЯ FAY MA ; [facility] Adult Aspirin EC Low Strength 81 MG OR TBEC 04/06/2011 Provider: Diagnosis: Last Documented On 04/06/2011 2:54PM By MG MCNEAL LPN ; [facility] Fish Oil 1200 MG OR CAPS 04/06/2011 Provider: Diagnosis: Last Documented On 04/06/2011 2:55PM By MG MCNEAL LPN ; [facility] Daily Value Multivitamin OR TABS 04/06/2011 Provider : Diagnosis: Last Documented On 04/06/2011 2:57PM By MG MCNEAL LPN ; [facility] Calcium 600+D 600-400 MG-UNIT OR TABS 04/06/2011 Pro vider: Diagnosis: Last Documented On 04/06/2011 2:57PM By MG MCNEAL LPN ; [facility] Metoprolol Succinate ER 100 MG OR TB24 04/06/2011 Pr ovider: Diagnosis: BID Last Documented On 04/06/2011 2:53PM By MG MCNEAL LPN ; [facility] Medications Administered Includes: Administered Medications from this [...] 07/04/2020 Active Last Documented On 1:02PM ; [facility] Encounters Encounter Provider Location Date Check-In Time Check-Out Time Diagnosis [Patient Encounter] ANICETO DALEY MD 11/10/2020 5:51PM 11:59PM Insurance Includes: Active Insurance Policies Plan Name Member ID Group # Subscriber Relationship Effect baldomero Dates 1 - [facility]/MEDICARE ADV/[employer] [id number] FERNANDEZ BROWNE Se lf Clinical Notes Includes: Clinical Notes from this encounter No Clinical Notes Recorded
--- OUTSIDE RECORDS SUMMARY | 2024-06-20 10:17 | XMS_ITS | Clinical Summary ---
Author Organization [facility] Address [address] [place] [address] Phone Care Team Providers Care Hematology Technologist Name Role Phone EDI MAC, ANICETO [place] Unavailable [phone] ROCK ALLAN MD Primary Care Provider [phone] Reason for Visit and Chief Complaint The Chief Complaint is: WWE and concerned about urine urgency Problems Includes: Problems addressed during this encounter and other active Problems All Visits Onset Date Resolved Date Provider Condition S tatus ESOPHAGEAL REFLUX 07/12/2012 ANICETO DALEY MD Active Last Documented On 3 9:35AM ; [facility] HYPERLIPIDEMIA NEC/NOS 07/12/2012 ANICETO Farmer MD Active Last Documented On 3 9:35AM ; [facility] HYPERTENSION NOS 07/12/2012 ANICETO DALEY MD A ctive Last Documented On 3 9:35AM ; [facility] Plan of Treatment - Follow-up visit 2 year or as needed - Last Documented On 07/08/2023 5:02PM ; [facility] She will let us know if she has other problems in the meantime. - Last Documented On 07/08/2023 5:02PM ; [facility] Future Appointments Date Time Location Provi harris WELL WOMAN - ESTABLISHED PT 07/09/2025 9:00AM [facility] ANICETO DALEY MD Last Documented On 4 10:08AM ; [facility] Instructions to patient Instructions for patient : B reast Self Exam discussed Last Documented On 4 9:50AM ; [facility] Education and Decision Aids were provided during visit for: STD screening offered and de clined Last Documented On 4 9:50AM ; [facility] Bone Mineral Density Screeni ng guidelines reviewed : will rpt in 2025 (5 years apart) Last Documented On 4 9:53AM ; [facility] Patient Education: Daily bonnie cium and vitamin D Last Documented On 4 9:50AM ; [facility] Patient Education: weight be aring exercise Last Documented On 4 9:50AM ; [facility] Colonoscopy screening guidel elisa discussed Last Documented On 4 9:50AM ; [facility] Assessments Includes: Assessments from this encounter Findings - Fibrocystic disease of breast - Last Documented On 07/08/2023 5:02PM ; [facility] - NORMAL FEMALE EXAM - Last Documented On 07/08/2023 5:02PM ; [facility] - Screening Malig. Neoplasm Rectum - Last Documented On 07/08/2023 5:02PM ; [facility] Instructions Includes: Instructions from this encounter Instructions to patient Instructions for patient : B reast Self Exam discussed Last Documented On 4 9:50AM ; [facility] Education and Decision Aids were provided during visit for: STD screening offered and de clined Last Documented On 4 9:50AM ; [facility] Bone Mineral Density Screeni ng guidelines reviewed : will rpt in 2025 (5 years apart) Last Documented On 4 9:53AM ; [facility] Patient Education: Daily bonnie cium and vitamin D Last Documented On 4 9:50AM ; [facility] Patient Education: weight be aring exercise Last Documented On 4 9:50AM ; [facility] Colonoscopy screening guidel elisa discussed Last Documented On 4 9:50AM ; [facility] Medical Equipment - Implanted Devices Includes: Current Devices No Medical Equipment Recorded Medications Includes: Medications discussed during this encounter and other current Medications Discontinued / Stopped on this date on 07/12/2012 E[facility] Vitamin D3 25 MCG (1000 UT) OR TABS P rovider: Diagnosis: Last Documented On 4 9:24AM By GIGI XIONG ; [facility] Current Medications (continue as prescribed) Loratadine 10 MG Oral Tablet 07/08/2023 Provider: Diagnosis: Last Documented On 4 9:25AM By GIGI XIONG ; [facility] Zolpidem Tartrate 5 MG Oral Tablet 11/05/2022 Provid er: ROCK ALLAN MD Diagnosis: prn Last Documented On 4 9:25AM By GIGI XIONG ; [facility] Crestor 40 MG Oral Tablet 07/04/2020 Provider: Diagnosis: Last Documented On 1 1:01PM By GIGI XIONG ; [facility] Lisinopril 5 MG OR TABS 07/12/2012 Provider: Diagnosis: Last Documented On 3 9:37AM By ЮЛИЯ FAY MA ; [facility] Vitamin B12 100 MCG OR TABS 07/12/2012 Provider: Diagnosis: Last Documented On 3 9:37AM By ЮЛИЯ FAY MA ; [facility] Vitamin C 250 MG OR TABS 07/12/2012 Provider: Diagnosis: Last Documented On 3 9:38AM By ЮЛИЯ FAY MA ; [facility] Adult Aspirin EC Low Strength 81 MG OR TBEC 04/06/2011 Provider: Diagnosis: Last Documented On 04/06/2011 2:54PM By MG MCNEAL LPN ; [facility] Fish Oil 1200 MG OR CAPS 04/06/2011 Provider: Diagnosis: Last Documented On 04/06/2011 2:55PM By MG MCNEAL LPN ; [facility] Daily Value Multivitamin OR TABS 04/06/2011 Provider : Diagnosis: Last Documented On 04/06/2011 2:57PM By MG MCNEAL LPN ; [facility] Calcium 600+D 600-400 MG-UNIT OR TABS 04/06/2011 Pro vider: Diagnosis: Last Documented On 04/06/2011 2:57PM By MG MCNEAL LPN ; [facility] Metoprolol Succinate ER 100 MG OR TB24 04/06/2011 Pr ovider: Diagnosis: BID Last Documented On 04/06/2011 2:53PM By MG MCNEAL LPN ; [facility] Medications Administered Includes: Administered Medications from this encounter No Administered Medications Recorded Vital Signs Includes: Vital Signs from this encounter Vital Name 07/08/2023 09:18A Blood Pressure Sitting (mmHg) 140/86 Temp-Oral (F) 98.3 Height (in) 65 Weight (lb) 179.6 Body Mass Index 29.9 Body Surface Area 1.9 Last Documented: On 07/08/2023 9:23AM ; [facility] Results Includes: Results [...] 201307/08/2023 Last Documented On 4 5:02PM ; [facility] Marital history and now has new partner since 01/202107/08/2023 Last Documented On 4 5:02PM ; [facility] Sexually active with 1 partners in the l ast year 07/08/2023 Last Documented On 4 5:02PM ; [facility] Exercising regularly 07/28/2016 Last Documented On 4 9:14AM ; [facility] 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; 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 07/25/2015 Last Documented On 4 9:14AM ; [facility] Smoking status : Never smoker 07/22/2014 Last Documented On 4 9:14AM ; [facility] Not sexually active 07/17/2013 Last Documented On 4 9:14AM ; [facility] Not using drugs 07/17/2013 Last Documented On 4 9:14AM ; [facility] Alcohol use 4 TIMES A MONTH 04/06/2011 Last Documented On 4 9:14AM ; [facility] Procedures and Surgical History Includes: Procedures from this encounter Procedures Code Diagnosis Performing Provider Service Location Service Date PAP/PELVIC/BREAST MEDICARE (POLICY CRITERIA APPLIED) G0101 Encntr for gynecologist exam (general) (routine) w/o abn findings, Diffuse cystic mastopathy of right breast, Diffuse cystic mastopathy of left breast ANICETO DALEY MD [facility] 07/08/2023 Last Documented On 4 9:45AM ; [facility] FIT TEST-SCREENING FOR FECAL OCCULT BLOOD (CLIA WAIVED) 10746 Encounter for screening for malignant neoplasm of colon ANICETO DALEY MD [facility] 07/08/2023 Last Documented On 4 9:24AM ; [facility] use of tobacco assessment performed 1000F Last Documented On 4 9:17AM ; [facility] Clinical summary provided to patient Last Documented On 4 9:50AM ; [facility] cervical Pap smear 80634 Last Documented On 4 9:50AM ; [facility] history of cervical Pap smear 07/28/2016 Normal 8 8150 Last Documented On 4 9:17AM ; [facility] patient recently had a dexa scan 11/03/20 [facility] Last Documented On 4 9:17AM ; [facility] FIT Test-Fecal Occult negative 02289 Last Documented On 4 9:50AM ; [facility] Surgical History Last Updated History of tubal ligation 07/12/2012 Last Documented On 4 9:14AM ; [facility] Medical History Includes: Medical History addressed during this encounter Description Last Updated Aborta 2 elective 07/08/2023 Last Documented On 4 5:02PM ; [facility] section x 1 and then 2 vaginal deliveries () 07/08/2023 Last Documented On 4 5:02PM ; [facility] 5 07/08/2023 Last Documented On 4 5:02PM ; [facility] Sexually active 07/08/2023 Last Documented On 4 5:02PM ; [facility] Surgical / procedural histor y LEFT ROTATOR CUFF SURGERY 11/[address] Plasencia at [facility] ~BREAST REDUCTION SURGERY APR 2011-- bilateral with Dr Mitchell ~Rt joint replacement of big toe- ~Reverse shoulder, Right, from a fall 12/2022 07/08/2023 Last Documented On 4 5:02PM ; [facility] Last mammogram date: 07/05/2023 [facility] 07/07 Last Documented On 4 5:02PM ; [facility] Result: normal 07/08/2023 Last Documented On 4 5:02PM ; [facility] Result: normal [facility] 07/08/2023 Last Documented On 4 5:02PM ; [facility] History of diaignostic fiberoptic colono scopy 11/08/[address] [facility] [address] Smith 07/08/2023 Last Documented On 4 5:02PM ; [facility] History of screening mammogram was perfo rmed 07/05/2023 [facility] 07/08/2023 Last Documented On 4 5:02PM ; [facility] PRIMARY CARE PROVIDER : is Dr Loretta Mauricio 08/12/2017 Last Documented On 4 9:14AM ; [facility] A colonoscopy was performed Dr Kwame farmer November 2014 08/12/2017 Last Documented On 4 9:14AM ; [facility] Last pap smear date 07/28/2016 08/12/2017 Last Documented On 4 9:14AM ; [facility] Patient recently had a dexa scan 08/01/2014 at [facility] with T-scores of 1.4 , 0.0, and 1.7; 07/25/2015 Last Documented On 4 9:14AM ; [facility] Herpes zoster (shingles) --- on her left face---June 2013 07/17/2013 Last Documented On 4 9:14AM ; [facility] Anxiety 07/17/2013 Last Documented On 4 9:14AM ; [facility] History of prior myocardial infarction they think it was a heart attack at age 52 07/17/2013 Last Documented On 4 9:14AM ; [facility] Para 3 07/17/2013 Last Documented On 4 9:14AM ; [facility] History of benign essential hypertension 07/12/2012 Last Documented On 4 9:14AM ; [facility] History of chronic reflux esophagitis Last Documented On 4 9:14AM ; [facility] History of hyperlipidemia 07/12/2012 Last Documented On 4 9:14AM ; [facility] Status post tubal ligation 1996 07/13/19 13 Last Documented On 4 9:14AM ; [facility] EMBX 12/23/04 04/06/2011 Last Documented On 4 9:14AM ; [facility] LMP: 04/06/2003 04/06/2011 Last Documented On 4 9:14AM ; [facility] Family History Includes: Family History addressed during this encounter Description Last Updated Fraternal history of family history unchanged A BROTHER PASSED OF LUNG CA at age 42 07/08/2023 Last Documented On 4 5:02PM ; [facility] Family history of cancer neice- pancreat ic cancer 07/08/2023 Last Documented On 4 5:02PM ; [facility] Family history of systemic hypertension PT 07/08/2023 Last Documented On 4 5:02PM ; [facility] Fraternal history of heart disease 07/07 Last Documented On 4 5:02PM ; [facility] Fraternal history of systemic hypertensi on 07/08/2023 Last Documented On 4 5:02PM ; [facility] Maternal history of heart disease 2023 Last Documented On 4 5:02PM ; [facility] Maternal history of systemic hypertensio n MGF 07/08/2023 Last Documented On 4 5:02PM ; [facility] Family history of Alzheimer disease thinks 3rd sister has it; being treated for it 07/08/2023 Last Documented On 4 5:02PM ; [facility] Sororal history of breast cancer 2nd sis ter 07/08/2023 Last Documented On 4 5:02PM ; [facility] Sororal history of Alzheimer disease older sister 06/2022 from alzheimers at 79 yo 07/08/2023 Last Documented On 4 5:02PM ; [facility] Sororal history of uterine c ancer SISTER- endometrial cancer- age 75 (hyst 08/14/2018) ~Different SISTER- endometrial cancer- age 57 and also thyroid papillary carcinoma age 60 08/14/2018 Last Documented On 4 9:14AM ; [facility] Maternal aunt's history of m alignant female breast neoplasm in a maternal aunt in her 60's ~ 08/14/2018 Last Documented On 4 9:14AM ; [facility] Paternal aunt's history of m alignant female breast neoplasm paternal aunt at 68 08/14/2018 Last Documented On 4 9:14AM ; [facility] Sororal history of malignant female breast neoplasm sister 68 is currently under treatment-chem double mastectomy and radiation (both breast)-bracca testing was negative( different sister than the two with endometrial cancer) 08/14/2018 Last Documented On 4 9:14AM ; [facility] Sororal history of diabetes mellitus sis ter 07/25/2015 Last Documented On 4 9:14AM ; [facility] Family history of diabetes mellitus sist er 07/17/2013 Last Documented On 4 9:14AM ; [facility] Family history of malignant female breast neoplasm in a maternal aunt in her 60's and a paternal aunt at 68 ~sister 68 is currently under treatment-chem double mastectomy and radiation (both breast)-bracca testing was negative 07/17/2013 Last Documented On 4 9:14AM ; [facility] Family history of hypercholesterolemia P T. AND FAMILY 04/06/2011 Last Documented On 4 9:14AM ; [facility] Heart disease PT. AND FAMILY 04/06/2011 Last Documented On 4 9:14AM ; [facility] Review of Systems Includes: Review of Systems [...] Active Last Documented On 1 1:02PM ; [facility] Encounters Encounter Provider Location Date Check-In Time Check-Out Time Diagnosis WELL WOMAN - ESTABLISHED PT ANICETO DALEY MD [facility] 07/08/19 24 9:05AM 10:08AM Breast Fibrocystic Disease,Screen ing Malig. Neoplasm Rectum,Normal Female Exam Insurance Includes: Active Insurance Policies Plan Name Member ID Group # Subscriber Relationship Effect baldomero Dates 1 - [facility]/MEDICARE ADV/AARP [id number] FERNANDEZ BROWNE Se lf Clinical Notes Includes: Clinical Notes from this encounter * Progress note Date Encounter Last Documented by 07/08/2023 WELL WOMAN - ESTABLISHED PT Last documented on 07/08/2023; 5:02 PM, ANICETO DALEY MD; [facility] Active Problems & Conditions - [...] CUFF SURGERY 11/[address] Plasencia at [facility] BREAST REDUCTION SURGERY APR 2011-- bilateral with Dr Mitchell Rt joint replacement of big toe- Reverse shoulder, Right, from a fall 12/2022. Tests: A colonoscopy was performed Dr Smith November 2014 and patient recently had a dexa scan 08/01/2014 at [facility] with T-scores of 1.4 , 0.0, and 1.7; : 5, para 3, aborta 2 elective, and history of the : section x 1 and then 2 vaginal deliveries (). Sexual: Sexually active. Other: Diaignostic fiberoptic colonoscopy 11/08/[address] [facility] [address] Smith. Screening mammogram was performed 07/05/2023 [facility] Diagnoses: Prior myocardial infarction they think [...] in the last year. 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
--- OUTSIDE RECORDS SUMMARY | 2024-06-20 10:17 | XMS_ITS | Clinical Summary ---
Author Organization [facility] Address [address] [facility], [address] [address] Phone Care Team Providers Care Machine Heel Sprayer Name Role Phone Sheri Holden MD Primary Care Provider [phone] Medications lisinopril (PRINIVIL, ZESTRIL) 5 MG Tablet [...] age to complete this topic Care Teams Machine Heel Sprayer Relationship Specialty Start Date End Date Sheri Holden MD [address] [place] [address] PCP - General Internal Medicine 10/20/15
--- OUTSIDE RECORDS SUMMARY | 2024-06-20 10:18 | XMS_ITS | Clinical Summary ---
Author Organization [facility] Address [address] [place] [address] Phone Care Team Providers Care Protein Chemist Name Role Phone EDI MAC, ANICETO [place] Unavailable [phone] ROCK ALLAN MD Primary Care Provider [phone] Reason for Visit and Chief Complaint gynecologic annual exam - The Chief Complaint is: WWE Problems Includes: Problems addressed during this encounter and other active Problems All Visits Onset Date Resolved Date Provider Condition S tatus ESOPHAGEAL REFLUX 07/12/2012 ANICETO DALEY MD Active Last Documented On 3 9:35AM ; [facility] HYPERLIPIDEMIA NEC/NOS 07/12/2012 ANICETO Farmer MD Active Last Documented On 3 9:35AM ; [facility] HYPERTENSION NOS 07/12/2012 ANICETO DALEY MD A ctive Last Documented On 3 9:35AM ; [facility] Plan of Treatment - Follow-up visit 2 years or as needed - Last Documented On 08/14/2018 4:16PM ; [facility] She will let us know if she has other problems in the meantime. - Last Documented On 08/14/2018 4:16PM ; [facility] Future Appointments Date Time Location Provi harris WELL WOMAN - ESTABLISHED PT 07/09/2025 9:00AM [facility] ANICETO DALEY MD Last Documented On 4 10:08AM ; [facility] Instructions to patient Instructions for patient : B reast Self Exam discussed Last Documented On 9 1:57PM ; [facility] Education and Decision Aids were provided during visit for: STD screening offered and de clined Last Documented On 9 1:57PM ; [facility] Bone Mineral Density Screeni ng guidelines reviewed Last Documented On 9 1:57PM ; [facility] Patient Education: Daily bonnie cium and vitamin D Last Documented On 9 1:57PM ; [facility] Patient Education: weight be aring exercise Last Documented On 9 1:57PM ; [facility] Colonoscopy screening guidel elisa discussed Last Documented On 9 1:57PM ; [facility] Assessments Includes: Assessments from this encounter Findings - Fibrocystic disease of breast - Last Documented On 08/14/2018 4:16PM ; [facility] - NORMAL FEMALE EXAM - Last Documented On 08/14/2018 4:16PM ; [facility] - Screening Malig. Neoplasm Rectum - Last Documented On 08/14/2018 4:16PM ; [facility] Instructions Includes: Instructions from this encounter Instructions to patient Instructions for patient : B reast Self Exam discussed Last Documented On 9 1:57PM ; [facility] Education and Decision Aids were provided during visit for: STD screening offered and de clined Last Documented On 9 1:57PM ; [facility] Bone Mineral Density Screeni ng guidelines reviewed Last Documented On 9 1:57PM ; [facility] Patient Education: Daily bonnie cium and vitamin D Last Documented On 9 1:57PM ; [facility] Patient Education: weight be aring exercise Last Documented On 9 1:57PM ; [facility] Colonoscopy screening guidel elisa discussed Last Documented On 9 1:57PM ; [facility] Medical Equipment - Implanted Devices Includes: Current Devices No Medical Equipment Recorded Medications Includes: Medications discussed during this encounter and other current Medications Current Medications (continue as prescribed) Loratadine 10 MG Oral Tablet 07/08/2023 Provider: Diagnosis: Last Documented On 4 9:25AM By GIGI XIONG ; [facility] Zolpidem Tartrate 5 MG Oral Tablet 11/05/2022 Provid er: ROCK ALLAN MD Diagnosis: prn Last Documented On 4 9:25AM By GIGI XIONG ; [facility] Crestor 40 MG Oral Tablet 07/04/2020 Provider: Diagnosis: Last Documented On 1 1:01PM By GIGI XIONG ; [facility] Lisinopril 5 MG OR TABS 07/12/2012 Provider: Diagnosis: Last Documented On 3 9:37AM By ЮЛИЯ FAY MA ; [facility] TH Vitamin B12 100 MCG OR TABS 07/12/2012 Provider: Diagnosis: Last Documented On 3 9:37AM By ЮЛИЯ FAY MA ; [facility] CVS Vitamin C 250 MG OR TABS 07/12/2012 Provider: Diagnosis: Last Documented On 3 9:38AM By ЮЛИЯ FAY MA ; [facility] Adult Aspirin EC Low Strength 81 MG OR TBEC 04/06/2011 Provider: Diagnosis: Last Documented On 04/06/2011 2:54PM By MG MCNEAL LPN ; [facility] Fish Oil 1200 MG OR CAPS 04/06/2011 Provider: Diagnosis: Last Documented On 04/06/2011 2:55PM By MG MCNEAL LPN ; [facility] Daily Value Multivitamin OR TABS 04/06/2011 Provider : Diagnosis: Last Documented On 04/06/2011 2:57PM By MG MCNEAL LPN ; [facility] Calcium 600+D 600-400 MG-UNIT OR TABS 04/06/2011 Pro vider: Diagnosis: Last Documented On 04/06/2011 2:57PM By MG MCNEAL LPN ; [facility] Metoprolol Succinate ER 100 MG OR TB24 04/06/2011 Pr ovider: Diagnosis: BID Last Documented On 04/06/2011 2:53PM By MG MCNEAL LPN ; [facility] Medications Administered Includes: Administered Medications from this encounter No Administered Medications Recorded Vital Signs Includes: Vital Signs from this encounter Vital Name 08/14/2018 03:28P Blood Pressure Sitting (mmHg) 104/76 Height (in) 65 Weight (lb) 181.375 Body Mass Index (kg/m2) 30.2 Body Surface Area (m2) 1.9 Last Documented: On 08/14/2018 3:28PM ; [facility] Results Includes: Results discussed [...] 201307/08/2023 Last Documented On 9 1:21PM ; [facility] Marital history 07/08/2023 Last Documented On 9 1:21PM ; [facility] Sexually active with 0 partners in the l ast year 08/14/2018 Last Documented On 9 4:16PM ; [facility] Exercising regularly 07/28/2016 Last Documented On 9 1:21PM ; [facility] 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; 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 07/25/2015 Last Documented On 9 1:21PM ; [facility] Smoking status : Never smoker 07/22/2014 Last Documented On 9 1:21PM ; [facility] Not sexually active 07/17/2013 Last Documented On 9 1:21PM ; [facility] Not using drugs 07/17/2013 Last Documented On 9 1:21PM ; [facility] Alcohol use 4 TIMES A MONTH 04/06/2011 Last Documented On 9 1:21PM ; [facility] Procedures and Surgical History Includes: Procedures from this encounter Procedures Code Diagnosis Performing Provider Service L ocation Service Date Clinical summary provided to patient Last Documented On 9 1:57PM ; [facility] cervical Pap smear 84686 Last Documented On 9 1:57PM ; [facility] FIT Test-Fecal Occult negative 96332 Last Documented On 9 1:57PM ; [facility] Surgical History Last Updated Surgical / procedural histor y LEFT ROTATOR CUFF SURGERY 11/[address] Plasencia at [facility] ~BREAST REDUCTION SURGERY APR 2011-- bilateral with Dr Mitchell ~Rt joint replacement of big toe-07/17/2013 Last Documented On 9 1:21PM ; [facility] History of tubal ligation 07/12/2012 Last Documented On 9 1:21PM ; [facility] Medical History Includes: Medical History addressed during this encounter Description Last Updated Aborta 2 , ectopic 1 07/08/2023 Last Documented On 9 1:21PM ; [facility] section x1 07/08/2023 Last Documented On 9 1:21PM ; [facility] 5 07/08/2023 Last Documented On 9 1:21PM ; [facility] Not sexually active 07/08/2023 Last Documented On 9 1:21PM ; [facility] Last mammogram date: 06/15/2017 [facility] 07/07 Last Documented On 9 1:21PM ; [facility] Result: normal 07/08/2023 Last Documented On 9 1:21PM ; [facility] Result: normal 07/08/2023 Last Documented On 9 1:21PM ; [facility] Vaginal delivery after c/section x2 06/10 Last Documented On 9 1:21PM ; [facility] PRIMARY CARE PROVIDER : is Dr Loretta Mauricio 08/12/2017 Last Documented On 9 1:21PM ; [facility] A colonoscopy was performed Dr Kwame farmer November 2014 08/12/2017 Last Documented On 9 1:21PM ; [facility] Last pap smear date 07/28/2016 08/12/2017 Last Documented On 9 1:21PM ; [facility] Patient recently had a dexa scan 08/01/2014 at [facility] with T-scores of 1.4 , 0.0, and 1.7; 07/25/2015 Last Documented On 9 1:21PM ; [facility] Herpes zoster (shingles) --- on her left face---June 2013 07/17/2013 Last Documented On 9 1:21PM ; [facility] Anxiety 07/17/2013 Last Documented On 9 1:21PM ; [facility] History of prior myocardial infarction they think it was a heart attack at age 52 07/17/2013 Last Documented On 9 1:21PM ; [facility] Para 3 07/17/2013 Last Documented On 9 1:21PM ; [facility] History of benign essential hypertension 07/12/2012 Last Documented On 9 1:21PM ; [facility] History of chronic reflux esophagitis Last Documented On 9 1:21PM ; [facility] History of hyperlipidemia 07/12/2012 Last Documented On 9 1:21PM ; [facility] Status post tubal ligation 199507/13/19 Last Documented On 9 1:21PM ; [facility] No recent change in medical history PT. REPORTS PASSING OUT JUNE 2010 at work, etiology never determined, though there was a question of an upper GI ulcer 04/18/2011 Last Documented On 9 1:21PM ; [facility] EMBX 12/23/04 04/06/2011 Last Documented On 9 1:21PM ; [facility] LMP: 04/06/2003 04/06/2011 Last Documented On 9 1:21PM ; [facility] Family History Includes: Family History addressed during this encounter Description Last Updated Fraternal history of family history unchanged A BROTHER PASSED OF LUNG CA 07/08/2023 Last Documented On 9 1:21PM ; [facility] Family history of hypertension PT. AND F AMILY 07/08/2023 Last Documented On 9 1:21PM ; [facility] Sororal history of uterine c ancer SISTER- endometrial cancer- age 75 (hyst 08/14/2018) ~Different SISTER- endometrial cancer- age 57 and also thyroid papillary carcinoma age 60 08/14/2018 Last Documented On 9 4:16PM ; [facility] Maternal aunt's history of m alignant female breast neoplasm in a maternal aunt in her 60's ~ 08/14/2018 Last Documented On 9 4:16PM ; [facility] Paternal aunt's history of m alignant female breast neoplasm paternal aunt at 68 08/14/2018 Last Documented On 9 4:16PM ; [facility] Sororal history of malignant female breast neoplasm sister 68 is currently under treatment-chem double mastectomy and radiation (both breast)-bracca testing was negative( different sister than the two with endometrial cancer) 08/14/2018 Last Documented On 9 4:16PM ; [facility] Sororal history of diabetes mellitus sis ter 07/25/2015 Last Documented On 9 1:21PM ; [facility] Family history of hypercholesterolemia P T. AND FAMILY 04/06/2011 Last Documented On 9 1:21PM ; [facility] Heart disease PT. 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 Neoplasm Rectum,Normal Female Exam Insurance Includes: Active Insurance Policies Plan Name Member ID Group # Subscriber Relationship Effect baldomero Dates 1 - [facility]/MEDICARE ADV/AARP [id number] FERNANDEZ E PAAVN Se lf Clinical Notes Includes: Clinical Notes from this encounter No Clinical Notes Recorded
--- OUTSIDE RECORDS SUMMARY | 2024-06-20 10:18 | XMS_ITS | Clinical Summary ---
Author Organization [facility] Address [address] [place] [address] Care Team Providers Care Industrial Gas Service Helper Name Role Phone Sheri Holden MD Primary Care Provider [phone] Allergies No known active allergies Medications aspirin 81 mg tablet take 1 tablet by oral route every day 0 0 02/12/2014 Active cyanocobalamin (Vitamin B-12) 1,000 mcg tablet otc 0 0 02/12/2014 Active multivitamin capsule take 1 capsule by oral route every day 0 02/12/2014 Active omega 9-mov-rfj-fish oil (FISH OIL) 100-160-1,000 mg capsule otc [...] Department Care Team Description 04/23/2024 1:00 PM JIG HAND Procedure visit [facility] Otolaryngology [facility] [address] [place] [address] [place] [address] Coco Peterson Au.D. BPPV (benign paroxysmal positional vertigo), bilateral (Primary Dx) 04/19/2024 10:00 AM JIG HAND Procedure visit [facility] Otolaryngology [address] [place] [address] [address] [place] [address] [place] [address] Coco Peterson Au.D. Dizziness from Last 3 Months Immunizations Immunization Administration Dates Next Due Influenza, Quadrivalent, Spl [...] HISTORY Dr. Recinos/Cardiology OTHER SURGICAL HISTORY Dr. Chen/OB-model maker scale OTHER SURGICAL HISTORY Dr. Oreilly/Cardiology REDUCTION MAMMAPLASTY [...] on file Legal Sex Female 11:29 PM JIG HAND Gender Identity Not on file Sexual Orientation [...] female with given history of postmenopausal state. Chemist Steroids/Model: [employer] SL (S/N [id number]) CLINICAL INFORMATION: Current height: 66 inches Maximum [...] by Andi Hunter M.D. MD: Report ID: [id number] Reading Location: [place] [address] Procedure Note Andi Hunter MD - 11/03/2020 EXAM DESCRIPTION: DEXA AXIAL SKELETON BONE DENSITY 1 OR MORE SITES REASON FOR STUDY: 70 year old female with given history ofpostmenopausal state. Chemist Steroids/Model: [employer] SL (S/N [id number]) CLINICAL INFORMATION: Current height: 66 inches Maximum [...] by Andi Hunter M.D. MD: Report ID: [id number] Reading Location: [place] [address] Yrn Chen MD IMG DXA PROCEDURES Final Resu lt * COLONOSCOPY IMAGES (11/08/2014) Anatomical Region Laterality Modality Other Narrative 11/08/2014 Ordered by an unspecified provider. Historical Provider GI PROCEDURE ORDERABLES F inal Result from Last 3 Months or Most Recently Relevant to Health Maintenance Insurance MEDICARE [facility] MCR SUPPLEMENT [place] DODD [id number] MEDICARE [facility] SUPPLEMENT [place] DODD [id number] MEDICARE SOLUTIONS [facility]LY [facility] SUPPLEMENT MEDICARE SOLUTIONS Care Teams Industrial Gas Service Helper Relationship Specialty Start Date End Date Sheri Holden MD [address] [place] [place] [address] PCP - General 07/09/16
--- OUTSIDE RECORDS SUMMARY | 2024-06-20 10:18 | XMS_ITS | Referral Summary ---
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 Otolaryngology [address] [place] [address] [address] [place] [address] [place] [id number] Coco Peterson Au.D. BPPV (benign paroxysmal positional vertigo), bilateral (Primary Dx) 04/19/2024 10:00 AM TURNTABLE WORKER Procedure visit [facility] Otolaryngology [address] [place] [address] 11[address] [place] [address] [place] [id number] Coco Peterson Au.D. Dizziness from Last 3 Months Allergies No known active allergies Medications aspirin 81 mg tablet take 1 tablet by oral route every day 0 0 02/12/2014 Active cyanocobalamin (Vitamin B-12) 1,000 mcg tablet otc 0 0 02/12/2014 Active multivitamin capsule take 1 capsule by oral route every day 0 02/12/2014 Active omega 9-pyj-eff-fish oil (FISH OIL) 100-160-1,000 mg capsule otc [...] (07/14/2016): Glucose intolerance (impaired glucose tolerance) Immunizations Immunization Administration Dates Next Due Influenza, [...] on file Legal Sex Female 11:29 PM TURNTABLE WORKER Gender Identity Not on file Sexual Orientation [...] female with given history of postmenopausal state. Package Maker/Model: [employer] SL (S/N [id number]) CLINICAL INFORMATION: Current height: 66 inches Maximum [...] by Andi Hunter M.D., MD: Report ID: [id number] Reading Location: [place] [address] Procedure Note Andi Hunter MD - 11/03/2020 EXAM DESCRIPTION: DEXA AXIAL SKELETON BONE DENSITY 1 OR MORE SITES REASON FOR STUDY: 70 year old female with given history ofpostmenopausal state. Package Maker/Model: [employer] (S/N [id number]) CLINICAL INFORMATION: Current height: 66 inches Maximum [...] by Andi Hunter M.D. MD: Report ID: [id number] Reading Location: [place] [address] Yrn Chen MD IMG DXA PROCEDURES Final Resu lt * COLONOSCOPY IMAGES (11/08/2014) Anatomical Region Laterality Modality Other Narrative 11/08/2014 Ordered by an unspecified provider. Historical Provider GI PROCEDURE ORDERABLES F inal Result from Last 3 Months or Most Recently Relevant to Health Maintenance Insurance MEDICARE [facility] SUPPLEMENT MEDICARE [facility] SUPPLEMENT MEDICARE SOLUTIONS [facility] MEDICARE Address: [address] [address] [place] [address] [facility] MCR SUPPLEMENT MEDICARE SOLUTIONS Care Teams Dielectric Embossing Machine Operator Relationship Specialty Start Date End Date Sheri Holden MD [address] [place] [address] PCP - General 07/09/16
--- OUTSIDE RECORDS SUMMARY | 2024-06-20 10:18 | XMS_ITS ---
Care Plan - [facility] Created on: June 20, 2024 FERNANDEZ BROWNE : 1950 Sex: Female Author Organization [facility] Address [address] [place] [address] Phone Care Team Providers Care Distributor Advertising Material Name Role Phone EDI MAC, ANICETO C Unavailable [phone] ROCK ALLAN MD Primary Care Provider [phone]
--- OUTSIDE RECORDS SUMMARY | 2024-06-20 10:18 | XMS_ITS | Clinical Summary ---
Author Organization [facility] Address [address] [place] [address] Phone Care Team Providers Care Sash Repairer Name Role Phone EDI MAC, ANICETO Madrid Unavailable [phone] ROCK ALLAN MD Primary Care Provider [phone] Reason for Visit and Chief Complaint gynecologic annual exam - The Chief Complaint is: WWE; pt states no c/o Problems Includes: Problems addressed during this encounter and other active Problems All Visits Onset Date Resolved Date Provider Condition S tatus ESOPHAGEAL REFLUX 07/12/2012 ANICETO DALEY MD Active Last Documented On 3 9:35AM ; [facility] HYPERLIPIDEMIA NEC/NOS 07/12/2012 ANICETO Farmer MD Active Last Documented On 3 9:35AM ; [facility] HYPERTENSION NOS 07/12/2012 ANICETO DALEY MD A ctive Last Documented On 3 9:35AM ; [facility] Plan of Treatment - Follow-up visit 1 year or as needed - Last Documented On 08/12/2017 3:36PM ; [facility] She will let us know if she has other problems in the meantime. - Last Documented On 08/12/2017 3:36PM ; [facility] Future Appointments Date Time Location Provi harris WELL WOMAN - ESTABLISHED PT 07/09/2025 9:00AM [facility] ANICETO DALEY MD Last Documented On 4 10:08AM ; [facility] Instructions to patient Instructions for patient : B reast Self Exam discussed Last Documented On 8 3:20PM ; [facility] Education and Decision Aids were provided during visit for: STD screening offered and de clined Last Documented On 8 3:20PM ; [facility] Bone Mineral Density Screeni ng guidelines reviewed Last Documented On 8 3:20PM ; [facility] Patient Education: Daily bonnie cium and vitamin D Last Documented On 8 3:20PM ; [facility] Patient Education: weight be aring exercise Last Documented On 8 3:20PM ; [facility] Colonoscopy screening guidel elisa discussed Last Documented On 8 3:20PM ; [facility] Assessments Includes: Assessments from this encounter Findings - Fibrocystic disease of breast - Last Documented On 08/12/2017 3:36PM ; [facility] - NORMAL FEMALE EXAM - Last Documented On 08/12/2017 3:36PM ; [facility] - Screening Malig. Neoplasm Rectum - Last Documented On 08/12/2017 3:36PM ; [facility] Instructions Includes: Instructions from this encounter Instructions to patient Instructions for patient : B reast Self Exam discussed Last Documented On 8 3:20PM ; [facility] Education and Decision Aids were provided during visit for: STD screening offered and de clined Last Documented On 8 3:20PM ; [facility] Bone Mineral Density Screeni ng guidelines reviewed Last Documented On 8 3:20PM ; [facility] Patient Education: Daily bonnie cium and vitamin D Last Documented On 8 3:20PM ; [facility] Patient Education: weight be aring exercise Last Documented On 8 3:20PM ; [facility] Colonoscopy screening guidel elisa discussed Last Documented On 8 3:20PM ; [facility] Medical Equipment - Implanted Devices Includes: Current Devices No Medical Equipment Recorded Medications Includes: Medications discussed during this encounter and other current Medications Current Medications (continue as prescribed) Loratadine 10 MG Oral Tablet 07/08/2023 Provider: Diagnosis: Last Documented On 4 9:25AM By GIGI XIONG ; [facility] Zolpidem Tartrate 5 MG Oral Tablet 11/05/2022 Provid er: ROCK ALLAN MD Diagnosis: prn Last Documented On 4 9:25AM By GIGI XIONG ; [facility] Crestor 40 MG Oral Tablet 07/04/2020 Provider: Diagnosis: Last Documented On 1 1:01PM By GIGI XIONG ; [facility] Lisinopril 5 MG OR TABS 07/12/2012 Provider: Diagnosis: Last Documented On 3 9:37AM By ЮЛИЯ FAY MA ; [facility] TH Vitamin B12 100 MCG OR TABS 07/12/2012 Provider: Diagnosis: Last Documented On 3 9:37AM By ЮЛИЯ FAY MA ; [facility] CVS Vitamin C 250 MG OR TABS 07/12/2012 Provider: Diagnosis: Last Documented On 3 9:38AM By ЮЛИЯ FAY MA ; [facility] Adult Aspirin EC Low Strength 81 MG OR TBEC 04/06/2011 Provider: Diagnosis: Last Documented On 04/06/2011 2:54PM By MG MCNEAL LPN ; [facility] Fish Oil 1200 MG OR CAPS 04/06/2011 Provider: Diagnosis: Last Documented On 04/06/2011 2:55PM By MG MCNEAL LPN ; [facility] Daily Value Multivitamin OR TABS 04/06/2011 Provider : Diagnosis: Last Documented On 04/06/2011 2:57PM By MG MCNEAL LPN ; [facility] Calcium 600+D 600-400 MG-UNIT OR TABS 04/06/2011 Pro vider: Diagnosis: Last Documented On 04/06/2011 2:57PM By MG MCNEAL LPN ; [facility] Metoprolol Succinate ER 100 MG OR TB24 04/06/2011 Pr ovider: Diagnosis: BID Last Documented On 04/06/2011 2:53PM By MG MCNEAL LPN ; [facility] Medications Administered Includes: Administered Medications from this encounter No Administered Medications Recorded Vital Signs Includes: Vital Signs from this encounter Vital Name 08/12/2017 03:01P Blood Pressure Sitting (mmHg) 84/56 Height (in) 64.5 Weight (lb) 183.125 Body Mass Index (kg/m2) 30.9 Body Surface Area (m2) 1.9 Last Documented: On 08/12/2017 3:06PM ; [facility] Results Includes: Results discussed during this encounter No Results Recorded For Specified Dates History of Present Illness Includes: History of Present Illness from this encounter BHUMI BROWNE is a 67 year old female. - Medication list reviewed. 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 07/25/2015 Last Documented On 8 3:00PM ; [facility] Smoking status : Never smoker 07/22/2014 Last Documented On 8 3:00PM ; [facility] Not sexually active 07/17/2013 Last Documented On 8 3:00PM ; [facility] Not using drugs 07/17/2013 Last Documented On 8 3:00PM ; [facility] Alcohol use 4 TIMES A MONTH 04/06/2011 Last Documented On 8 3:00PM ; [facility] Procedures and Surgical History Includes: Procedures from this encounter Procedures Code Diagnosis Performing Provider Service L ocation Service Date Clinical summary provided to patient Last Documented On 8 3:20PM ; [facility] cervical Pap smear : not done due to age [id number] Last Documented On 8 3:35PM ; [facility] FIT Test-Fecal Occult negative 72782 Last Documented On 8 3:20PM ; [facility] Surgical History Last Updated Surgical / procedural histor y LEFT ROTATOR CUFF SURGERY 11/[address] Plasencia at [facility] ~BREAST REDUCTION SURGERY APR 2011-- bilateral with Dr Mitchell ~Rt joint replacement of big toe-07/17/2013 Last Documented On 8 3:00PM ; [facility] History of tubal ligation 07/12/2012 Last Documented On 8 3:00PM ; [facility] Medical History Includes: Medical History addressed during this encounter Description Last Updated section x1 07/08/2023 Last Documented On 8 3:00PM ; [facility] 5 07/08/2023 Last Documented On 8 3:00PM ; [facility] Not sexually active 07/08/2023 Last Documented On 8 3:00PM ; [facility] Vaginal delivery after c/section x2 06/10 Last Documented On 8 3:00PM ; [facility] Last mammogram date: 06/15/2017 [facility] 08/12 Last Documented On 8 3:36PM ; [facility] PRIMARY CARE PROVIDER : is Dr Loretta Mauricio 08/12/2017 Last Documented On 8 3:36PM ; [facility] A colonoscopy was performed Dr Kwame farmer November 2014 08/12/2017 Last Documented On 8 3:36PM ; [facility] Aborta 2 , ectopic 1 08/12/2017 Last Documented On 8 3:36PM ; [facility] Last pap smear date 07/28/2016 08/12/2017 Last Documented On 8 3:36PM ; [facility] Result: normal 08/12/2017 Last Documented On 8 3:36PM ; [facility] Patient recently had a dexa scan 08/01/2014 at [facility] with T-scores of 1.4 , 0.0, and 1.7; 07/25/2015 Last Documented On 8 3:00PM ; [facility] Herpes zoster (shingles) --- on her left face---June 2013 07/17/2013 Last Documented On 8 3:00PM ; [facility] Anxiety 07/17/2013 Last Documented On 8 3:00PM ; [facility] History of prior myocardial infarction they think it was a heart attack at age 52 07/17/2013 Last Documented On 8 3:00PM ; [facility] Para 3 07/17/2013 Last Documented On 8 3:00PM ; [facility] History of benign essential hypertension 07/12/2012 Last Documented On 8 3:00PM ; [facility] History of chronic reflux esophagitis Last Documented On 8 3:00PM ; [facility] History of hyperlipidemia 07/12/2012 Last Documented On 8 3:00PM ; [facility] Status post tubal ligation 1996 07/13/19 Last Documented On 8 3:00PM ; [facility] No recent change in medical history PT. REPORTS PASSING OUT JUNE 2010 at work, etiology never determined, though there was a question of an upper GI ulcer 04/18/2011 Last Documented On 8 3:00PM ; [facility] EMBX 12/23/04 04/06/2011 Last Documented On 8 3:00PM ; [facility] LMP: 04/06/2003 04/06/2011 Last Documented On 8 3:00PM ; [facility] Family History Includes: Family History addressed during this encounter Description Last Updated Fraternal history of family history unchanged A BROTHER PASSED OF LUNG CA 07/08/2023 Last Documented On 8 3:00PM ; [facility] Family history of hypertension PT. AND F AMILY 07/08/2023 Last Documented On 8 3:00PM ; [facility] Sororal history of diabetes mellitus sis ter 07/25/2015 Last Documented On 8 3:00PM ; [facility] Family history of malignant female breast neoplasm in a maternal aunt in her 60's and a paternal aunt at 68 ~sister 68 is currently under treatment-chem double mastectomy and radiation (both breast)-bracca testing was negative 07/17/2013 Last Documented On 8 3:00PM ; [facility] Family history of hypercholesterolemia P T. AND FAMILY 04/06/2011 Last Documented On 8 3:00PM ; [facility] Heart disease PT. 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 Neoplasm Rectum,Normal Female Exam Insurance Includes: Active Insurance Policies Plan Name Member ID Group # Subscriber Relationship Effect baldomero Dates 1 - [facility]/MEDICARE ADV/[employer] [id number] FERNANDEZ BROWNE Se lf Clinical Notes Includes: Clinical Notes from this encounter No Clinical Notes Recorded
== END 2024-06-20 09:33 | disposition home or self-care (01) ==
PROVIDERS: PCP Internal Medicine; Visit Provider Orthopaedic Surgery
DX: Z96.612 Presence of left artificial shoulder joint (principal)
CPT/HCPCS: 73030

== ENCOUNTER 2024-11-27 00:36 | Day surgery (SDC) | payer MEDICARE, SELFPAY ==
[2024-11-13 09:14] VITALS: BMI 28.3
--- OUTSIDE RECORDS SUMMARY | 2024-11-27 00:38 | XMS_ITS | Clinical Summary ---
Author Organization [facility] Address [address] [facility], [address] [address] Phone Care Team Providers Care Laboratory Asst Name Role Phone Sheri Holden MD Primary Care Provider [phone] Medications lisinopril (PRINIVIL, ZESTRIL) 5 MG Tablet [...] P M CDT Height 167.6 cm (5' 6) 10/20/2015 4:06 PM CDT Body Mass Index 30.12 10/20/2015 4:06 PM CDT Plan of Treatment Health Maintenance Due Date Last Done Comments Hepatitis C Virus (HCV) Screening 1950 TdaP Immunization 1950 Cologuard 02/01/1997 Colonoscopy 02/01/1997 Colorectal Cancer Screening 02/01/1997 Immunochemical Fecal Occult Blood 02/01/1997 Pneumococcal Immunization (5 0+ years) (1 of 1 - PCV) 02/01/2002 Zoster Immunization (1 of 2) 02/01/2002 SARS-COV-2 Immunization (1 - season) 2023 Influenza Immunization (#1) 2024 Respiratory Syncytial Virus (RSV) Immunization (Adult) (1 - 1-dose 75+ series) 02/01/2027 Hepatitis B Immunization Aged Out No longer eligible based on patient's age to complete this topic Human Papillomavirus (HPV) Immunization Aged Out No longer eligible b ased on patient's age to complete this topic Meningococcal Immunization (ACWY) Aged Out No longer eligible based on patient's age to complete this topic Rotavirus Immunization Aged Out No lo nger eligible based on patient's age to complete this topic Care Teams Laboratory Asst Relationship Specialty Start Date End Date Sheri Holden MD [address] [facility] [place] [address] PCP - General Internal Medicine 10/20/15
--- OUTSIDE RECORDS SUMMARY | 2024-11-27 00:38 | XMS_ITS | Clinical Summary ---
Author Organization [facility] Address [address] [place] [address] Care Team Providers Care Sample Selector Name Role Phone Sheri Holden MD Primary Care Provider [phone] Allergies No known active allergies Medications aspirin 81 mg tablet take 1 tablet by oral route every day 0 0 02/12/2014 Active cyanocobalamin (Vitamin B-12) 1,000 mcg tablet otc 0 0 02/12/2014 Active multivitamin capsule take 1 capsule by oral route every day 0 02/12/2014 Active omega 6-mhn-jdn-fish oil (FISH OIL) 100-160-1,000 mg capsule otc [...] HISTORY Dr. Recinos/Cardiology OTHER SURGICAL HISTORY Dr. Chen/OB-food safety scientist OTHER SURGICAL HISTORY Dr. Oreilly/Cardiology REDUCTION MAMMAPLASTY 04/11/2011 - 04/10/2012 Bilateral Family History Medical History Relation Name Comments Other Brother 1 angus lung cancer; Ca use of : lung cancer Lung cancer Brother 2 Cancer -lung; Hyperlipidemia Brother 3 farzana High choleste rol; Coronary artery disease Cousin Brittney nary artery disease, premature; Alcohol abuse Father Alcoholism; Blood Clot Father BLOOD CLOT; Other Father embolism from f racture; Cause of : embolism from fracture Breast cancer Maternal cousin Alzheimer's disease Mother Alzheime r's Disease; Coronary artery disease Mother Brittney nary artery disease, premature; /Coronary artery disease; Heart failure Mother Congestive hea rt failure; /chf; Cause of : chf Other Mother cholecystectomy ; Coronary artery disease Mother's Brother Coronary artery disease, premature; Breast cancer Mother's Sister Coronary artery disease Other 1 Fami ly history of Coronary artery disease, premature; Hypertension Other 2 Family history of Hypertension; Hyperlipidemia Other 3 Family histor y of Hyperlipidemia; COPD Other 4 Family history of COPD; Dementia Other 5 Family history of Dementia; Other Sister 1 galo Alive and well; Diabetes type II Sister 2 Diabetes -T ype 2; Diabetes Sister 3 Cesia Diabetes [facility]; Breast cancer Sister 4 Bernwilliamce breast cancer; Coronary artery disease Sister 5 regina Brittney nary artery disease; Other Sister 5 regina thyroid problem ; Thyroid disease Sister 6 richard thyroid dise ase; Other Sister 7 factor v leiden x 2 sister; Ovarian cancer Neg Hx Thyroid cancer Neg Hx Relation Name Status Comments Brother 1 angus Brother 2 Brother 3 farzana Cousin Father Maternal cousin Mother Mother's Brother Mother's Sister Other 1 Other 2 Other 3 Other [...] on file Legal Sex Female 11:29 PM SAMPLE SELECTOR Gender Identity Not on file Sexual Orientation [...] - Inhaled Oxygen Concentration - - Weight 79.4 kg (175 lb) 08/08/2024 3:26 PM CDT Height 167.6 cm (5' 6) 08/08/2024 3:26 PM CDT Body Mass Index 28.25 08/08/2024 3:26 PM CDT Plan of Treatment Health Maintenance Due Date Last Done Comments Fall Risk Assessment 1950 Hepatitis C Screening 1950 Hepatitis B Screening 02/01/1970 Well Visit 65+ 02/01/2017 Depression Screening 01/11/2018 01/11/2017 Zoster Vaccine (3 of 3) 12/22/2018 10/28/19 19, 01/09/2013, 01/04/2013 Osteoporosis Screening-Bone Density Scan 11/03/2022 11/03/2020 Colon Cancer Screening-Colonoscopy 11/08/2024 11/08/2014, 11/08/2014, 11/08/2014 Influenza Vaccine (#1) 2024 0, 02/09/2018, 01/11/2017, Additional history exists Breast Cancer Screening-Mammogram 08/08/2025 08/08/2024, 07/05/2023, 03/30/2022, Additional history exists DTaP/Tdap/Td Vaccine (4 - Td or Tdap) [...] JEFF Schedule Routine, Read Routine (OP Routine) 08/08/2024 3:35 PM CDT Screening mammogram, encounter for DEXA AXIAL SKELETON BONE DENSITY 1 OR MORE SITES Schedule Routine, Read Routine (OP Routine) 11/03/2020 2:35 PM CDT Encounter for screening for osteoporosis COLONOSCOPY IMAGES 11/08/2014 from Last 3 Months or Most Recently Relevant to Health Maintenance Results * Screening Mammogram Bilateral W Jeff (08/08/2024 3:35 PM CDT) Anatomical Region Laterality Modality Breast Bilateral Mammography Impressions 08/08/2024 4:06 PM CDT Bilateral No evidence of malignancy in either breast. OVERALL BI-RADS FINAL ASSESSMENT: 2 - Benign RECOMMENDATION: Recommend bilateral annual screening mammography. Narrative 08/08/2024 4:06 PM CDT EXAMINATION: Screening Mammogram Bilateral W Jeff: 08/08/2024 COMPARISON: Relevant prior studies available at the time of interpretation were reviewed. TECHNIQUE: Mammography was performed with 2D and digital breast tomosynthesis (DBT) images. CAD was utilized. BREAST PARENCHYMAL COMPOSITION: There are scattered areas of fibroglandular density. FINDINGS: There are postoperative changes of bilateral reduction mammoplasty. There are benign calcifications in both breasts. There is no new suspicious finding in either breast on mammogram. us Self Screening Mammogram IMG MAMMO PROCEDURES [...] female with given history of postmenopausal state. Counter Checker/Model: EggCartel Discovery SL (S/N [id number]) CLINICAL INFORMATION: Current height: 66 inches Maximum [...] by Andi Hunter M.D. MD: Report ID: [id number] Reading Location: [id number] Procedure Note Andi Hunter MD - 11/03/2020 EXAM DESCRIPTION: DEXA AXIAL SKELETON BONE DENSITY 1 OR MORE SITES REASON FOR STUDY: 70 year old female with given history ofpostmenopausal state. Counter Checker/Model: EggCartel Discovery SL (S/N [id number]) CLINICAL INFORMATION: Current height: 66 inches Maximum [...] 2:52 PM - Electronically signed by Andi uHnter M.D., MD: Report ID: [id number] Reading Location: [id number] us Yrn Chen MD IMG DXA PROCEDURES Final Resu lt * COLONOSCOPY IMAGES (11/08/2014) Anatomical Region Laterality Modality Other Narrative 11/08/2014 Ordered by an unspecified provider. Historical Provider GI PROCEDURE ORDERABLES F inal Result from Last 3 Months or Most Recently Relevant to Health Maintenance Insurance MEDICARE [facility] SUPPLEMENT UHC MEDICARE ADVANTAGE [facility] SUPPLEMENT UHC MEDICARE [facility]VANTAGE [facility] MED[facility] Address: [address] [address] [place] [address] Care Teams Sample Selector Relationship Specialty Start Date End Date Sheri Holden MD PCP - General 07/09/16
[2024-11-27 08:28] VITALS: BP 138/76; PULSE 68; RESP 16; TEMP 36.1; O2SAT 99
[2024-11-27] MEDS: LACTATED RINGERS 1,000 ML 150 ML IV CONT (08:36)
--- NOTE | 2024-11-27 08:47 | PM.IMHP ---
H&P: HPI History of Present Illness Date/Time: 11/27/24 08:47 Chief Complaint: screening for colorectal cancer Narrative: this is a 74-year-old woman who presents for colonoscopy. Her last colonoscopy was 10 years ago and was normal. She denies any hematochezia or melena. She denies any family history of colon cancer. Review of Systems Review of Systems: All systems reviewed & are unremarkable except as noted in HPI and below Constitutional: Constitutional: Denies chills, Denies fever(s), Denies headache(s) and Denies weight loss Eyes: Eyes: Denies change in vision ENT: Denies dizziness, Denies headache(s), Denies neck mass and Denies throat swelling Cardiovascular: Cardiovascular: Denies chest pain, Denies lightheadedness and Denies dyspnea Respiratory: Respiratory: Denies cough, Denies dyspnea and Denies wheezing Gastrointestinal: Gastrointestinal: Denies abdominal pain, Denies change in bowel habits, Denies nausea and Denies vomiting Genitourinary: Genitourinary: Denies hematuria and Denies dysuria Musculoskeletal: Musculoskeletal: Reports as per HPI Integumentary/Breasts: Skin/Breast: Reports as per HPI Neurologic: Denies dizziness and Denies headache(s) Allergic/Immunologic: Allergic/Immunologic: Denies throat swelling and Denies wheezing COUNTS INCLUDE 234 BEDS AT THE [facility] Past Medical History Medical History (Updated 09/24/24 @ 12:01 by Anette Wall NP) Insomnia Hyperlipidemia Heart disease History of [place] (myocardial infarction) Normal nuclear stress test 12/31/22 History of heart block (~2001) History of cardiac disorder History of hypertension Surgical History Surgical History History of reverse total replacement of right shoulder joint (~01/04/23) History of (~1989) History of bilateral breast reduction surgery (~04/2011) History of repair of left rotator cuff (~12/01/10) Family History Family History (Updated 09/24/24 @ 11:16 by Yajaira Fermin [employer]) Sibling Family history of diabetes mellitus in first degree relative Cancer Breast cancer DVT (deep venous thrombosis) High cholesterol Mother Family history of heart disease in male family member before age 55 Arthritis Alzheimers disease Heart disease Sibling Cancer Hypertension Father Alcoholism Social History Social History Smoking status: Never smoker Second hand tobacco smoke exposure: No Alcohol intake: current Drinks per week: 4 Substance use: never Substance use type: does not use Do You Feel Safe in your Home?: Yes Lack of Transportation: No Lack of Food: Never True Current Housing: I Have Housing Concerned About Future Housing: No Difficulty Paying Gas/Electric Bills: No Difficulty Paying for Meds: No Currently Unemployed: No Education: Bachelor's Degree Difficulty w/ Childcare or Family Care: No Living arrangements: with family Additional living arrangements comments: LIVES WITH SIGNIFICANT OTHER Spiritual care concerns: No Meds Home Medications and Allergies Home Medications ?Medication ?Instructions ?Recorded ?Confirmed ?Type ascorbate calcium (vitamin C) 500 500 mg PO DAILY 11/12/20 11/27/24 History mg tablet calcium 600 mg (as 1 cap PO BID 11/12/20 11/27/24 History carbonate)-vitamin D3 12.5 mcg (500 unit) capsule (Calcium with Vit D3) lisinopril 5 mg tablet 5 mg PO DAILY 11/12/20 11/27/24 History metoprolol succinate 100 mg 100 mg PO DAILY 11/12/20 11/27/24 History tablet,extended release 24 hr multivitamin 1 tablet PO DAILY 11/12/20 11/27/24 History rosuvastatin 40 mg tablet 40 mg PO DAILY 11/12/20 11/27/24 History ezetimibe 10 mg tablet 10 mg PO DAILY 04/13/24 11/27/24 History aspirin 81 mg tablet 81 mg PO DAILY 09/24/24 11/27/24 History omega-3 fatty acids 1,000 mg 1,000 mg PO TID 09/24/24 11/27/24 History capsule (Fish Oil Concentrate) zolpidem 5 mg tablet (Ambien) 5 mg PO QHS 09/24/24 11/27/24 History Allergies Allergy/AdvReac Type Severity Reaction Status Date / Time No Known Allergies Allergy Verified 11/27/24 08:27 Vital Signs Vital Signs - 24 hr 11/27/24 08:28 Temperature 97 F L Pulse Rate 68 Respiratory Rate 16 Blood Pressure 138/76 Pulse Oximetry 99 Oxygen Delivery Room Air Exam Const: General: no acute distress and alert Orientation/consciousness: patient oriented x3 HENMT: Head: normocephalic and atraumatic Ears: hearing grossly normal bilaterally Face/Nose/Sinus: Normal nares present Mouth: Yes Normal oral and palatal mucosa present Eyes: Periorbital: periorbital findings normal Sclera: sclerae normal EOM: EOMs intact bilaterally Neck: Neck: normal visual inspection, no lymphadenopathy and trachea midline Chest: Chest palpation & inspection: normal inspection of the chest Resp: Effort & Inspection: normal respiratory effort Auscultation: clear to auscultation bilaterally Cardio: Jugular venous distension: no JVD Rate: regular rate Rhythm: regular rhythm Heart sounds: S1 normal heart sound present and S2 normal heart sound present Peripheral pulses: Peripheral pulses 2+ throughout GI: Inspection: normal to inspection GI Palp: Yes Soft to palpation, No Tenderness to palpation present (GI), No Guarding due to palpation present (GI) and No Rebound tenderness present Percussion: Yes normal to percussion Auscultation: normal bowel sounds : General: Yes no CVA tenderness Back/Spine/Pelvis: Back: no CVA tenderness Neuro: General: patient oriented x3, no focal motor deficits and CN's II-XI intact bilaterally Cognition (Neuro): normal cognition Speech: normal speech Motor exam (neuro): 5/5 motor strength present throughout Extrem: General: capillary refill normal and no clubbing, cyanosis or edema Assessment and Plan Assessment and plan (1) Screening for colon cancer: Code(s): Z12.11 - Encounter for screening for malignant neoplasm of colon Status: Acute Assessment and Plan: I have recommended colonoscopy. I have discussed the procedure, risks, benefits, and alternatives. Questions were answered. Patient is agreeable to proceed.
[2024-11-27 09:12] VITALS: BP 104/56; PULSE 71; RESP 14; O2SAT 96
[2024-11-27 09:22] VITALS: BP 113/68; PULSE 67; RESP 13; O2SAT 96
[2024-11-27 09:32] VITALS: BP 131/82; PULSE 66; RESP 21; O2SAT 99
--- NOTE | 2024-12-06 14:52 | WPDANESEPPF ---
Anes - Initial Pre Proc Eval Procedure: Operation Date: 11/27/24 09:30 Proposed Procedures p Screening Colonoscopy - Tulio Castro DO Date/Time: 12/06/24 14:52 Surgeon: Tulio Castro DO Pre Op Diagnosis: Neoplasm screening Patient Data Age: 74 Gender: F Height: 1.68 m Weight: 78.5 kg Last Vital Signs Temp 36.1 C L 11/27/24 08:28 Pulse 66 11/27/24 09:32 Resp 21 H 11/27/24 09:32 BP 131/82 11/27/24 09:32 Pulse Ox 99 11/27/24 09:32 O2 Del Method Room Air 11/27/24 09:32 Allergies Allergy/AdvReac Type Severity Reaction Status Date / Time No Known Allergies Allergy Verified 11/27/24 08:27 Home Medications ?Medication ?Instructions ?Recorded ?Confirmed ?Type ascorbate calcium (vitamin C) 500 500 mg PO DAILY 11/12/20 11/27/24 History mg tablet calcium 600 mg (as 1 cap PO BID 11/12/20 11/27/24 History carbonate)-vitamin D3 12.5 mcg (500 unit) capsule (Calcium with Vit D3) lisinopril 5 mg tablet 5 mg PO DAILY 11/12/20 11/27/24 History metoprolol succinate 100 mg 100 mg PO DAILY 11/12/20 11/27/24 History tablet,extended release 24 hr multivitamin 1 tablet PO DAILY 11/12/20 11/27/24 History rosuvastatin 40 mg tablet 40 mg PO DAILY 11/12/20 11/27/24 History ezetimibe 10 mg tablet 10 mg PO DAILY 04/13/24 11/27/24 History aspirin 81 mg tablet 81 mg PO DAILY 09/24/24 11/27/24 History omega-3 fatty acids 1,000 mg 1,000 mg PO TID 09/24/24 11/27/24 History capsule (Fish Oil Concentrate) zolpidem 5 mg tablet (Ambien) 5 mg PO QHS 09/24/24 11/27/24 History Patient hx anesthesia problems: none Family hx anesthesia problems: none Results Review: All pre-operative results and documents have been reviewed as part of the pre-operative evaluation. 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) History of (~1989) History of bilateral breast reduction surgery (~04/2011) History of repair of left rotator cuff (~12/01/10) Family History Family History (Updated 09/24/24 @ 11:16 by Yajaira Fermin [facility]) Sibling Family history of diabetes mellitus in first degree relative Cancer Breast cancer DVT (deep venous thrombosis) High cholesterol Mother Family history of heart disease in male family member before age 55 Arthritis Alzheimers disease Heart disease Sibling Cancer Hypertension Father Alcoholism Social History Social History Smoking status: Never smoker Second hand tobacco smoke exposure: No Alcohol intake: current Drinks per week: 4 Substance use: never Substance use type: does not use Do You Feel Safe in your Home?: Yes Lack of Transportation: No Lack of Food: Never True Current Housing: I Have Housing Concerned About Future Housing: No Difficulty Paying Gas/Electric Bills: No Difficulty Paying for Meds: No Currently Unemployed: No Education: Bachelor's Degree Difficulty w/ Childcare or Family Care: No Living arrangements: with family Additional living arrangements comments: LIVES WITH SIGNIFICANT OTHER Spiritual care concerns: No Anes - Eval Final PreProcedure Day of Procedure 12/06/24 14:52 Patient weight: overweight Heart: regular rate and rhythm Lungs: clear to auscultation Airway: Mallampati scale class II Neurological: alert and oriented Last oral intake: >/= 8 hours ASA classification: III Emergent: no Anesthetic plan: proceed Anesthesia type and monitoring: general GIVS and standard monitoring Results Review: All pre-operative results and documents have been reviewed as part of the pre-operative evaluation. Informed Consent: The patient's anesthetic plan and its attendant risks and benefits were discussed with the patient/family/POA. Questions were solicited and answers provided to the satisfaction of the patient/family/POA.
== END 2024-11-27 09:44 | disposition home or self-care (01) ==
PROVIDERS: PCP Internal Medicine; Visit Provider Surgery
PROC: 0DJD8ZZ Inspection of Lower Intestinal Tract, Via Natural or Artificial Opening Endoscopic (ICD-10-PCS; CPT 45378; principal; 2024-11-27 09:30)
DX: Z12.11 Encounter for screening for malignant neoplasm of colon (principal); K57.30 Diverticulosis of large intestine without perforation or abscess without bleeding; E78.5 Hyperlipidemia, unspecified; G47.00 Insomnia, unspecified; I11.9 Hypertensive heart disease without heart failure; I25.2 Old myocardial infarction; Z79.82 Long term (current) use of aspirin; Z98.890 Other specified postprocedural states; Z86.79 Personal history of other diseases of the circulatory system; Z80.3 Family history of malignant neoplasm of breast; Z82.49 Family history of ischemic heart disease and other diseases of the circulatory system
CPT/HCPCS: G0105; J2003; J2704; J7120